=== PATIENT | male | born 1950 | race Caucasian/White ===

== ENCOUNTER 2019-01-01 20:07 | Inpatient (IN) | payer MEDICARE ==
--- NOTE | 2019-01-01 20:22 | ED ---
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 Pt was transferred from [facility] for CHF, sepsis. Associated sx: worsening LLE erythema and pain; fever; vomiting. His pain is rated 4 out of 10. Patient currently has known R upper lobe PNA. He is visiting from out of town and scheduled to fly back to [place] in three ays. He was seen by a provider in [place] 2 days ago, given ABX. PMHx: palpitations, DM, multiple AR, chronic kidney disease. No PMHx: CHF. Work-up from [facility] found: Bloodwork: WBC: 15, platelets: 116; elevated lactate: 2.8; d-dimer 1070; glucose : 478; anion gap: 14; BUN: 47; creatinine 2.5; troponin: 0.98; BNP: 1150. Following tests were negative: Head CT, Abd CT, CXR. However, the Chest CT was negative for CHF, but there was a R upper lobe infiltrate. Pt given IV fluids, ABX, 10 units insulin at [facility]. - History of Current Complaint Chief Complaint: EDShortnessOfBreath Time Seen by Provider: 01/01/19 20:08 Hx Obtained From: Patient, Medical Records Onset/Duration: Still Present Timing: Constant Associated Signs & Symptoms: Fever, Calf Pain/Swelling - and erythema Related History: Obesity - Allergy/Home Medications Allergies/Adverse Reactions: Allergies Allergy/AdvReac Type Severity Reaction Status Date / Time No Known Allergies Allergy Verified 01/01/19 20:23 Home Medications: Home Medications Carvedilol [Coreg] 1 tab PO BID 01/01/19 [History Confirmed 01/01/19] Dabigatran CAP(NF) [Pradaxa CAP(NF)] 1 cap PO DAILY 01/01/19 [History Confirmed 01/01/19] Hydralazine HCl 1 tab PO BID 01/01/19 [History Confirmed 01/01/19] Insulin REGULAR(*) 1 unit SUBCUT TID 01/01/19 [History Confirmed 01/01/19] Levothyroxine Sodium 1 tab PO DAILY 01/01/19 [History Confirmed 01/01/19] Losartan Potassium 1 tab PO DAILY 01/01/19 [History Confirmed 01/01/19] Novolin N 1 unit SUBCUT BID 01/01/19 [History Confirmed 01/01/19] Simvastatin 1 tab PO DAILY 01/01/19 [History Confirmed 01/01/19] Ubidecarenone [Coenzyme Q-10] 1 tab PO DAILY 01/01/19 [History Confirmed ] cloNIDine HCl [Catapres 0.1 MG TAB] 1 tab PO TID 01/01/19 [History Confirmed ] PMH/Surg Hx/FS Hx/Imm Hx Previously Healthy: No Endocrine/Hematology History: Reports: Hx Diabetes Cardiovascular History: Reports: Hx Atrial Fibrillation, Hx Myocardial Infarction Denies: Hx Congestive Heart Failure History: Reports: Hx Renal Disease - Family History Known Family History: Positive: Non-Contributory - Social History Occupation: Unemployed - OTHER Lives: With Family Alcohol Use: Occasionally Hx Substance Use: No Hx Tobacco Use: Yes Smoking Status (MU): Former Smoker Review of Systems Positive: Fever Positive: Shortness Of Breath Positive: Vomiting Positive: Other - pos: LLE erythema and pain All Other Systems Reviewed And Are Negative: Yes Physical Exam - Summary Physical Exam Summary: Appearance: well appearing, no pain distress Skin: warm, dry, reflects adequate perfusion Head/face: normal Eyes: EOMI, CONSTANCE ENT: mucous membranes moist Neck: supple, non-tender, no JVD Respiratory: Fine crackle in R upper lobe, breath sounds present Cardiovascular: Irregularly irregular, tachy, pulses symmetrical Abdomen: non-tender, soft Bowel Sounds: present Musculoskeletal: normal, strength/ROM intact. Beefy red erythema, chronic appearing, on LLE. Pitting edema to L knee on LLE. There is 2+ pitting edema on RLE. Evidence of chronic healed wound on RLE. 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 Callous of plantar foot of Left. Neuro: normal, sensory motor intact, A&Ox3 Triage Information Reviewed: Yes Vital Signs Reviewed: Yes Diagnostics - Laboratory Result Diagrams: 01/01/19 21:07 01/01/19 21:07 Lab Statement: Any lab studies that have been ordered have been reviewed, and results considered in the medical decision making process. - Radiology CXR Radiology Interpretation Completed By: ED Physician Summary of Radiographic Findings: No definite infiltrate. - Ultrasound No standard instances Ultrasound Interpretation Completed By: Radiologist Summary of Ultrasound Findings: LLLE Venous Doppler US IMPRESSION: No DVT in the left lower activity. Possible popliteal cyst. ED provider has reviewed this report. Course/Dx - Course Course Of Treatment: Nurse's notes reviewed. Patient transferred from outside hospital where he presented for concern for respiratory infection. He had been placed on Zithromax previously. His blood sugars are elevated he also has A. fib and his heart rate was elevated on arrival. He had a litany of tests at the other facility including a CT of the chest which showed a right upper lobe infiltrate. He had not been given any antibiotics. He had pain and swelling and redness in the left lower extremity and a DVT ultrasound was negative for DVT. There is some concern on it for cellulitis. He does have a popliteal cyst as well. Given the above infections he was treated for his severe sepsis with elevated lactate. He was given IV fluids, Rocephin, Zithromax and vancomycin. He was not acidotic and was not placed on insulin drip. He did receive rate controlled with diltiazem which controlled his rate down into the 80s and 90s. He will be admitted to the hospitalist service. - Diagnoses Differential Diagnosis/HQI/PQRI: Positive: CHF - Cellulitis, DVT, PE, Pneumonia , Other Provider Diagnoses: Right upper lobe pneumonia, Severe sepsis, Cellulitis of left lower extremity, Rapid atrial fibrillation - Physician Notifications Discussed Care of Patient With: Rosmery Villalobos - hospitalist Time Discussed With Above Provider: 21:20 Instructed by Provider To: Admit As Inpatient - Critical Care Time Critical Care Time: 30-74 min - 30 mins CCT. CCT is EXCLUSIVE of separately billable procedures. Discharge - Sign-Out/Discharge Documenting (check all that apply): Patient Departure - which Patient Received Moderate/Deep Sedation with Procedure: No - Discharge Plan Condition: Fair Disposition: ADMITTED TO [facility] - Billing Disposition and Condition Condition: FAIR Disposition: Admitted to [facility] - Attestation Statements Document Initiated by Scribe: Yes Documenting Scribe: Peyton Palomino Provider For Whom Scribe is Documenting (Include Credential): Dr. Norman Tao MD Scribe Attestation: Peyton Nava, scribed for Dr. Norman Tao MD on 01/02/19 at 0154. Scribe Documentation Reviewed: Yes Provider Attestation: The documentation as recorded by the fani, Peyton Palomino accurately reflects the service I personally performed and the decisions made by me, Dr. Norman Tao MD Status of Fani Document: Viewed
[2019-01-01] MEDS ORDERED: NS 0.9% 1000 ML** 1,000 ML IV ONE (20:23)
[2019-01-01] MEDS ORDERED: Azithromycin 500 mg/250 ml NS 500 MG/250 ML BAG IVPB ONE (20:23)
[2019-01-01] MEDS ORDERED: cefTRIAXone(*) 1 GM in NS 0.9% 50 ML* 50 ML IVPB ONE (20:23)
[2019-01-01] MEDS ORDERED: Insulin REGULAR(*) 1 UNITS UNIT IV PUSH ONE (20:25)
[2019-01-01] MEDS ORDERED: Diltiazem IV VIAL* 125 MG in NS 0.9% 100 ML* 100 ML IVPB ONE (20:26)
[2019-01-01] MEDS ORDERED: Diltiazem IV push/loading dose 5 MG/ML 5 ML vial (25 mg) IV SLOW PU ONE (20:37)
[2019-01-01 21:21] LABS: ABS Basophils 0.1 10^3/ul (0-0.2); ABS Lymphocytes 0.7 10^3/ul (1.0-4.8); ABS Monocytes 0.5 10^3/ul (0-0.8); ABS Neutrophils 12.2 10^3/ul (1.5-7.7); Hematocrit 41 % (42-52); Hemoglobin 13.5 g/dL (14.0-18.0); Mean Corpuscular HGB Conc 33 g/dL (31-36); Mean Corpuscular Hemoglobin 30 pg (27-31); Mean Corpuscular Volume 91 fL (80-94); Mean Platelet Volume 11.2 fL (7.4-10.4); Platelet Count 132 10^3/uL (150-450); Red Blood Count 4.46 10^6 /uL (4.18-5.48); Red Cell Distribution Width 14 % (10.5-15); White Blood Count 13.5 10^3/uL (3.5-10.8)
[2019-01-01 21:34] LABS: Anion Gap 12 mmol/L (2-11); BUN/Creatinine Ratio 19.7 (8-20); Blood Urea Nitrogen 46 mg/dL (6-24); CO2 Carbon Dioxide 23 mmol/L (22-32); Calcium 8.4 mg/dL (8.6-10.3); Chloride 98 mmol/L (101-111); EGFR African American 33.8 (>60); EGFR Non-African American 27.9 (>60); Glucose 413 mg/dL (70-100); Potassium 3.7 mmol/L (3.5-5.0); Sodium 133 mmol/L (135-145)
[2019-01-01] MEDS ORDERED: Vancomycin(*) 1,750 MG in NS 0.9% 500 ML* 500 ML IVPB ONE (21:40)
[2019-01-01] MEDS ORDERED: Vancomycin(*) 1,000 MG VIAL IVPB SCH (22:00)
[2019-01-01] MEDS ORDERED: Ondansetron INJ* 2 MG/ML VIAL IV PRN (22:10)
[2019-01-01 22:27] LABS: Magnesium 1.8 mg/dL (1.9-2.7)
[2019-01-01] MEDS ORDERED: Dextrose 50% Syringe 50 ML* 25 GM/50 ML SYRINGE IV PUSH PRN ×2 (22:27)
[2019-01-01] MEDS ORDERED: Metoprolol Tartrate IV* 1 MG/ML 5 ML VIAL IV PRN (22:28)
[2019-01-01] MEDS ORDERED: Heparin DRIP 25,000 UNITS(*) 25,000 UNITS/500 ML BAG IV SCH (22:30)
[2019-01-01 22:34] LABS: Troponin I 1.49 ng/mL (<0.04)
[2019-01-01 22:39] LABS: TSH (Thyroid Stimulating Horm) 0.57 mcIU/mL (0.34-5.60)
[2019-01-01] MEDS ORDERED: Heparin VIAL(*) 5000 UNITS/ML VIAL (FIVE THOUSAND) IV PRN (22:41)
[2019-01-01] MEDS ORDERED: Potassium Chlor TAB* 20 MEQ TAB.ER PO ONE (22:52)
[2019-01-01] MEDS ORDERED: Magnesium Sulfate 1 GM IV* 1 GM/100 ML BAG IV ONE (22:55)
[2019-01-01] MEDS ORDERED: Insulin LISPRO* 1 UNITS UNIT SUBCUT SCH (23:00)
[2019-01-02] MEDS ORDERED: Dextrose 50% Syringe 50 ML* 25 GM/50 ML SYRINGE IV PUSH PRN ×2 (00:30→04:09)
[2019-01-02] MEDS: Insulin GLARGINE(*) 1 UNITS UNIT SUBCUT SCH ×2 (00:45→21:43)
[2019-01-02] MEDS: Carvedilol TAB* 3.125 MG PO SCH ×3 (00:45→21:42)
[2019-01-02] MEDS: Insulin LISPRO* 1 UNITS UNIT SUBCUT SCH ×8 (00:46→16:25)
[2019-01-02 00:51] LABS: Glucose Confirmatory 415 mg/dL (70-100)
[2019-01-02 00:52] LABS: Troponin I 1.26 ng/mL (<0.04)
[2019-01-02] MEDS: Acetaminophen TAB* 325 MG PO PRN ×3 (01:27→21:43)
--- NOTE | 2019-01-02 01:37 | HP ---
CC: Dr. Zamudio, [place], [place] * HISTORY AND PHYSICAL: DATE OF ADMISSION: 01/01/19 TIME OF EVALUATION: 2100. PRIMARY CARE PHYSICIAN: Dr. Zamudio in [place], [place]. CHIEF COMPLAINT: Shortness of breath. HISTORY OF PRESENT ILLNESS: This is a 68-year-old male with a past medical history of atrial fibrillation, CKD, and diabetes, who presented to the emergency room from [facility] Room after having complaints of cough and shortness of breath. The patient states he flew up here from [place] with his on 12/28/18 for his cousin's graduation in [place]. Since then he has been driving around through [facility]. He has been complaining of worsening productive cough, shortness of breath. He has also noticed his left lower extremity 2 days ago more swollen with redness and painful. He went urgent care in [place] yesterday, 12/31/18, and they gave him Z-Giovanni and stated if his symptoms got worse to come to the emergency room for further evaluation. The patient states he has a lot of congestion. He feels lightheaded and dizzy. No falls, no loss of consciousness, but the dizziness has made it difficult for him to ambulate. He has also been short of breath with productive cough and orthopneic, nauseated as well when he lies flat. No chest pain or pressure. No vomiting or diarrhea. He states he feels bloated. He has had a decrease in appetite over the past few days. No fevers or chills. The patient denies any cough, choking, or aspirating on foods. The patient states he normally has well-controlled diabetes as well. In the [facility], the patient had labs, several imaging studies. He was given Lasix 80 mg and regular insulin 10 units, and he was sent here to [facility] ER for concern for congestive heart failure. Otherwise, remainder of review of systems is negative. In our emergency room, the patient was given a liter of fluid, diltiazem 10 mg, ceftriaxone 1 g, and azithromycin 500 mg, and vancomycin 1750 mg and referred to the hospitalist service for further evaluation. PAST MEDICAL HISTORY: 1. Diabetes. 2. CKD. 3. History of atrial fibrillation, on anticoagulation. 4. History of IA and CAD. The patient denies ever having stent or bypass surgery. 5. Hypertension. 6. Hyperlipidemia. 7. Hypothyroidism. MEDICATIONS: Per the patient, he is on Novolin N 20 units b.i.d. and NovoLog R sliding scale a.c. The remaining medications the patient is not clear on his dosages, but he states he takes Pradaxa, but according to med rec, 1. Pradaxa 75 mg p.o. daily 2. Hydralazine 50 mg p.o. b.i.d. 3. Coreg 3.125 mg b.i.d. 4. Losartan 100 mg p.o. daily. 5. Synthroid 25 mcg daily. 6. Coenzyme Q10 200 mg daily. 7. Simvastatin 20 mg daily. 8. Clonidine 0.1 mg p.o. t.i.d. ALLERGIES: No known drug allergies. FAMILY HISTORY: Reviewed and noncontributory. SOCIAL HISTORY: The patient lives in [place], [place] with his who is his healthcare proxy. As mentioned, he was visiting for his cousin's graduation from [place]. He quit smoking in 1987 with a 17-hitk-eyiv history. He drinks socially. No illicit drug use. Code status is full code. REVIEW OF SYSTEMS: A 14-point review of systems as mentioned in the HPI, otherwise negative. PHYSICAL EXAMINATION GENERAL: In no acute distress. He does fall asleep routinely during my encounter, but awakes easily to voice. VITAL SIGNS: T-max is 99.4, pulse rate is 98, respiratory rate is 24, oxygen saturation is 97% on 2 L, blood pressure 127/68. HEENT: Head normocephalic. Pupils are equal and reactive, anicteric. Oropharynx: Mucous membranes moist. NECK: Supple. No lymphadenopathy. RESPIRATORY: Diminished breath sounds. Bilateral rales at the bases. No increased work of breathing. CARDIAC: Irregularly irregular rate and rhythm. Soft systolic murmur heard throughout. ABDOMEN: Positive bowel sounds. Mild distention. Soft and nontender. EXTREMITIES: Chronic lower extremity lymphedema with hemosiderin changes. His left lower extremity has more significant erythema, edema, and warmth with serosanguineous oozing from his lower extremity. No wound but some minor skin tears. Pulses are distant. NEUROLOGIC: Alert and oriented x3. No gross focal neurologic deficits. LABORATORY DATA/IMAGING STUDIES: At [facility], his white count was 15, hemoglobin 12.9, hematocrit 39, platelets 116. Troponin was 0.978. BNP 1150. Sodium 134, potassium 3.9, chloride 98, bicarb 22. BUN 47, creatinine 2.5. He had 38% bands at [facility]. Repeat labs here at [facility] this evening, white count 13.5, hemoglobin 13.5, hematocrit 41, platelets 132. Blood gas, pH is 7.4. Sodium 133, potassium 3.7, chloride 98, bicarb 23. BUN 46, creatinine 2.33. Glucose is 413. Lactic acid is 2.3. Venous Doppler: There is no DVT in the left lower extremity, possible popliteal cyst. The patient had imaging at [facility]. CT of the abdomen: No small bowel obstruction, scattered small stool, no hydronephrosis or nephrolithiasis. Chest x- ray at [facility]: There was no acute pulmonary disease. Our chest x- ray on my read appears pulmonary edema. Head CT: No acute intracranial hemorrhage, significant mass effect, or large infarct. Chest CT without contrast at [facility]: Small patchy nodular right upper lobe infiltrate. ASSESSMENT: This is a 68-year-old male with past medical history of diabetes, chronic kidney disease, atrial fibrillation, and coronary artery disease, presents to the emergency room with worsening cough, shortness of breath, and left lower extremity redness. 1. Cough with shortness of breath. Assessment: This could be multifactorial. There is a question of an infiltrate on the chest CT right upper lobe. He does have a productive cough. White count with bandemia. He also appears to have some fluid overload. There is also a question of a possible pulmonary embolism with his recent flight from [place] and driving a lot throughout [facility] over the past several days. He does not have a DVT, and based on his creatinine clearance of 31, he should be able to take Pradaxa 150 mg p.o. b.i.d. but he is only on 75 mg p.o. daily. Plan: We will follow up blood cultures. We will check a sputum culture. We will continue on ceftriaxone and azithromycin which should treat both his cellulitis and his community-acquired pneumonia. I am going to switch him to a heparin drip for now and hold his Pradaxa and order a V/Q scan in the morning. If that is negative, can switch him back over to his oral anticoagulation at the appropriate dose based on his renal function. 2. Left lower extremity cellulitis. Assessment: No underlying wound, just some serosanguineous oozing from his lower extremity. No signs of deep venous thrombosis either. Plan: We will continue ceftriaxone and monitor for any worsening symptoms and follow up on this blood culture. 3. Question of congestive heart failure. Assessment: The patient's chest x- ray is concerning for the possibility of acute decompensated heart failure. His BNP was also elevated from [facility] and he has orthopnea. It is not sure if he has ever had an echocardiogram in the past. He did get 80 of Lasix at [facility] and a liter of fluid here. With the setting of his concern for sepsis and infection, we would not continue to diurese him but will bolus him as needed. We will also continue to trend his troponin, add on a troponin now and obtain an echocardiogram. 4. Diabetes. Assessment: The patient with hyperglycemia here. Mild anion gap but his pH is normal. This anion gap could be from worsening renal function as well. He did get IV insulin here and at [facility]. Plan: We will check a hemoglobin A1c, start him on Lantus 40 units and lispro sliding scale and monitor his glucose frequently. 5. Atrial fibrillation. Assessment: The patient arrived in rapid atrial fibrillation on arrival. His rate is now in the 90s. We would hold off on starting him on diltiazem drip in the setting of his congestive heart failure. We will continue him on Coreg and Lopressor p.r.n., hold his clonidine for now as well. 6. Chronic kidney disease. It is unclear what his baseline renal function is. I have no prior labs to compare this to. We will renally dose his medications , hold his losartan for now and repeat his labs in the morning. 7. Chronic medical problems. As mentioned, for hypertension, continue his Coreg, hydralazine, holding his losartan, holding his clonidine. Hyperlipidemia , continue with simvastatin, check a lipid panel in the morning. Hypothyroidism , continue his Synthroid, check his TSH in the setting of his atrial fibrillation. Holding his Pradaxa while he is on a heparin drip and ruling out a pulmonary embolism. 8. Diabetes. Placing him on Lantus and lispro sliding scale in place of his NovoLog and checking hemoglobin A1c. 9. FEN: We will place the patient on low-salt diabetic diet. 10. DVT prophylaxis: The patient scores high risk. Will be on a heparin drip. 11. Code status: The patient confirms he is a full code. PATIENT TIME: Greater than 60 minutes spent doing the history and physical, more than half the time spent in direct patient contact. [id number]/CPS #: [id number] MTDD
[2019-01-02] MEDS ORDERED: Insulin LISPRO* 1 UNITS UNIT SUBCUT ONE (04:09)
[2019-01-02 05:24] LABS: ABS Basophils 0.1 10^3/ul (0-0.2); ABS Lymphocytes 0.9 10^3/ul (1.0-4.8); ABS Monocytes 0.6 10^3/ul (0-0.8); ABS Neutrophils 14.6 10^3/ul (1.5-7.7); Eosinophil % 0.3 %; Hematocrit 39 % (42-52); Hemoglobin 12.7 g/dL (14.0-18.0); Lymphocyte % 5.8 %; Mean Corpuscular HGB Conc 33 g/dL (31-36); Mean Corpuscular Hemoglobin 30 pg (27-31); Mean Corpuscular Volume 91 fL (80-94); Mean Platelet Volume 11.1 fL (7.4-10.4); Platelet Count 119 10^3/uL (150-450); Red Blood Count 4.23 10^6 /uL (4.18-5.48); Red Cell Distribution Width 14 % (10.5-15); White Blood Count 16.2 10^3/uL (3.5-10.8)
[2019-01-02 05:41] LABS: BUN/Creatinine Ratio 20.9 (8-20); EGFR African American 33.6 (>60); EGFR Non-African American 27.8 (>60); HDL Cholesterol 23.8 mg/dL; Potassium 3.8 mmol/L (3.5-5.0)
[2019-01-02] MEDS: Levothyroxine TAB* 75 MCG TAB PO SCH (06:15)
[2019-01-02 07:18] LABS: Troponin I 1.2 ng/mL (<0.04)
[2019-01-02] MEDS ORDERED: cloNIDine TAB* 0.1 MG PO SCH (09:00)
[2019-01-02] MEDS: hydrALAZINE TAB* 25 MG PO SCH ×2 (09:43→21:43)
[2019-01-02] MEDS: Atorvastatin* 10 MG TAB PO SCH (09:43)
--- NOTE | 2019-01-02 10:10 | PN ---
Subjective Date of Service: 01/02/19 Interval History: Cough and chills/fevers SOB x at least 2 days but maybe as long as 6 days Pain in left leg when standing for several days Abdominal bloating x 3 days and increased LE swelling Notes his creatinine at baseline is around 2.3 He has an appointment with a manager portable on 01/29 but is unaware of underlying CHF history At baseline walks many miles Objective Active Medications: Acetaminophen (Tylenol Tab*) 650 mg PO Q4H PRN PRN Reason: FEVER/PAIN Last Admin: 01/02/19 01:27 Dose: 650 mg Atorvastatin Calcium (Lipitor*) 10 mg PO DAILY [facility] Last Admin: 01/02/19 09:43 Dose: 10 mg Carvedilol (Coreg Tab*) 3.125 mg PO BID [facility] Last Admin: 01/02/19 09:43 Dose: 3.125 mg Dabigatran (Pradaxa Cap(Nf)) 75 mg PO BID [facility] Dextrose (D50w Syringe 50 Ml*) 12.5 gm IV PUSH .FOR FS < 60 - SS PRN PRN Reason: FS < 60 Heparin Sodium (Porcine) (Heparin Vial(*)) 0 units IV .PER PROTOCOL PRN PRN Reason: BOLUS Last Admin: 01/02/19 00:48 Dose: 6,900 units Hydralazine HCl (Apresoline Tab*) 50 mg PO BID [facility] Last Admin: 01/02/19 09:43 Dose: 50 mg Azithromycin 250 mg/ Sodium (Chloride) 250 mls @ 250 mls/hr IVPB Q24H [facility] Ceftriaxone Sodium 1 gm/ (Sodium Chloride) 50 mls @ 200 mls/hr IVPB Q24H [facility] Insulin Glargine (Lantus(*)) 40 units SUBCUT Q24H [facility] Last Admin: 01/02/19 00:45 Dose: 40 units Insulin Human Lispro (Humalog*) 0 units SUBCUT [facility]; Protocol Last Admin: 01/02/19 08:54 Dose: Not Given Insulin Human Lispro (Humalog*) 0 units SUBCUT [facility]; Protocol Last Admin: 01/02/19 09:43 Dose: 6 units Levothyroxine Sodium (Synthroid Tab*) 75 mcg PO DAILY@0600 [facility] Last Admin: 01/02/19 06:15 Dose: 75 mcg Metoprolol Tartrate (Lopressor Iv*) 5 mg IV Q4HR PRN PRN Reason: pulse Ondansetron HCl (Zofran Inj*) 4 mg IV Q4H PRN PRN Reason: NAUSEA/VOMITING Vital Signs - 8 hr 01/02/19 01/02/19 01/02/19 04:02 07:44 08:00 Temperature 98.2 F 98.9 F Pulse Rate 87 82 Respiratory 16 20 18 Rate Blood Pressure 134/47 91/44 (mmHg) O2 Sat by Pulse 98 98 Oximetry 01/02/19 08:07 Temperature Pulse Rate Respiratory Rate Blood Pressure 107/52 (mmHg) O2 Sat by Pulse Oximetry Oxygen Devices in Use Now: Nasal Cannula Appearance: NAD, talks in full sentences Eyes: No Scleral Icterus, PERRLA Ears/Nose/Mouth/Throat: NL Teeth, Lips, Gums, Clear Oropharnyx Neck: NL Appearance and Movements; NL JVP, Trachea Midline Respiratory: Symmetrical Chest Expansion and Respiratory Effort, - - faint rales from bases up 3/4 to apex Cardiovascular: - - IRIR Abdominal: - - +bs, soft, NTTP, distended, shifting dullness Extremities: - - b/l 2+ pitting edema Skin: - - left LE erythema from 2 in above ankle to 4 in below knee, weepingm some skin breakdown around ankle Neurological: Alert and Oriented x 3 Result Diagrams: 01/02/19 04:13 01/02/19 04:13 Assess/Plan/Problems-Billing Assessment: 68 yo M h/o DM2, CKD (baseline cr 2.3 per patient), CAD, afib lives in [place] pw cough, chills, SOB and increased LE edema and LLE erythema - Patient Problems (1) Pneumonia Comment: cough, chills, SOB, leukocytosis Above may be in setting of CHF and cellulitis but CT report from [facility] with concern for RUL infiltrate c/w CTX and azithro for CAP as well as LE infection (2) Cellulitis Comment: LLE Skin breakdown suspected in setting of incraesed LE edema from CHF CTX for PNA and cellulitis (3) Acute exacerbation of CHF (congestive heart failure) Comment: Echo pending obtain records from PCP Dr. Zamudio in [facility] strcit I/O, daily weights, fluid restrict Holding lasix now 2/2 BP and sepsis Diuresis as capable. Limited by CKD and current infection V/Q low risk - suspect decompensation in setting of PNA and/or cellulitis (4) Atrial fibrillation Comment: Restart pradaxa for afib. No recommended renal dosing for current CrCl Metoprolol, coreg (5) Diabetes Comment: HbA1c 10% Basal bolus insulin (6) CKD (chronic kidney disease) Comment: noted obtain records for comparison (7) Elevated troponin Comment: No chest pain Suspect demand in setting of PNA, CHF, cellulitis (8) DVT prophylaxis Comment: pradaxa
[2019-01-02] MEDS ORDERED: Perflutren Lipid Microsphere* 3 ML VIAL ONE (10:35)
[2019-01-02] MEDS: DABIGATRAN 75 MG PO SCH ×2 (12:51→21:42)
[2019-01-02] MEDS ORDERED: Furosemide IV* 10 MG/ML 2 ML VIAL (20 MG) IV SLOW PU ONE (15:30)
--- NOTE | 2019-01-02 16:03 | ECHO ---
*[facility]* [place] [address] Fax #: [phone] Transthoracic Echocardiogram Patient: Cheyenne, Height: 72 in / Aditya 182.9 cm : 1950 Weight: 244.5 lb / Study Date: 01/02/2019 111.1 kg Age: 68 BP: 134 / 47 Gender: M BMI/BSA: 33.2 kg/m^2 HR: 90 bpm / 2.32 m^2 *Lining Cementer: * Debbie Carolina [facility] *Referring Physician: * Rosmery Villalobos *Reading Physician: * Cortez Johansen MD Indications: Congestive Heart Failure. History: Atrial fibrillation. Coronary artery disease. Functional status: Renal failure. Risk factors: Hypertension. Diabetes mellitus. Hyperlipidemia. Conclusions Summary: 1. Left ventricle: There is moderate concentric hypertrophy. Systolic function is mildly reduced. The estimated ejection fraction is 45-50%. Mild global hypokinesis 2. Right ventricle: Systolic function is normal. 3. Ventricular septum: There is septal flattening of the interventricular septum consistent with RV volume or pressure overload. 4. Mitral valve: Mild focal calcification of the posterior annulus. There is mild to moderate regurgitation. 5. Aortic valve: There is no evidence of stenosis. There is trace regurgitation. 6. Tricuspid valve: There is trace regurgitation. 7. Pericardium, extracardiac: There is no pericardial effusion. Study data: Transthoracic echocardiogram. Procedure: Transthoracic echocardiography was performed. Image quality was suboptimal. The study was technically limited due to body habitus. Intravenous Definity , 2.5 mls were administered by Marc Samano RN. Complete 2D, spectral Doppler, and color flow Doppler. Location: Echo laboratory. Patient status: Inpatient. Patient room number: 443-1. Rhythm: Atrial fibrillation. Findings Left ventricle: The cavity size is below normal. There is moderate concentric hypertrophy. Systolic function is mildly reduced. The estimated ejection fraction is 45-50%. Left ventricular diastolic function parameters are indeterminate. Right ventricle: The cavity size is moderately dilated. Wall thickness is mildly increased. Systolic function is normal. Ventricular septum: There is septal flattening of the interventricular septum consistent with RV volume or pressure overload. Left atrium: The atrium is moderately dilated. Right atrium: The atrium is mildly dilated. Mitral valve: The leaflets are mildly thickened. Mild focal calcification of the posterior annulus. There is no evidence of stenosis. There is mild to moderate regurgitation. Aortic valve: The valve is trileaflet. The leaflets are normal thickness. There is no evidence of stenosis. There is trace regurgitation. Tricuspid valve: The leaflets are normal thickness. There is no evidence of stenosis. There is trace regurgitation. Pulmonic valve: Not well visualized. The leaflets are normal thickness. There is no evidence of stenosis. There is trace regurgitation. Aorta: Aortic root: The aortic root is upper normal in size. Ascending aorta: The ascending aorta is appears normal. Aortic arch: The aortic arch is appears normal. Pericardium: A prominent pericardial fat pad is present. There is no pericardial effusion. Pulmonary arteries: Not well visualized. Systemic veins: Inferior vena cava: The vessel is dilated. The respirophasic diameter changes are in the normal range (>= 50%). Measurements Left ventricle Value Ref Right atrium continued Value Ref ROSY, LAX (L) 3.4 cm 4.2 - SI dim/bsa, ES, 2.3 cm/m^2 1.8 - 5.8 A4C 3.0 ESD, LAX 2.5 cm 2.5 - Estimated RAP 8 mm Hg -------- 4.0 FS, LAX 26 % Aortic valve Value Ref PW, ED, LAX (H) 1.4 cm 0.6 - Fitz diam, ED 2.4 cm -------- 1.0 Peak v, S 1.05 m/sec -------- FS 26 % 25 - 43 VTI, S 15.7 cm -------- PW, ED (H) 1.4 cm 0.6 - Mean grad, S 2.0 mm Hg -------- 1.0 Peak grad, S 4.0 mm Hg -------- PW/ID, ED 0.42 -------- LVOT/AV, VTI ratio 0.96 -------- E', lat fitz, TDI 11.0 cm/sec >=10.0 CISCO, VTI 3.31 cm^2 - ------- E/e', lat fitz, TDI 10 -------- CISCO, Vmax 2.73 cm^2 ---- ---- E', med fitz, TDI 7.2 cm/sec >=7.0 E/e', med fitz, TDI 15 -------- Mitral valve Value Ref E', avg, TDI 9.1 cm/sec -------- Peak E 1.05 m/sec ---- ---- E/e', avg, TDI 12 <=14 Peak A 0 m/sec - ------- Decel time 211 ms -------- LVOT Value Ref PHT 144 ms -------- Diam, S 2.10 cm -------- Mean grad, D 3.0 mm Hg -------- Area 3.5 cm^2 -------- Peak grad, D 9.0 mm Hg -------- Peak isaias, S 0.83 m/sec -------- Peak E/A ratio 525 -------- VTI, S 15.0 cm -------- MVA, PHT 1.6 cm^2 -------- Mean grad, S 1 mm Hg -------- SV 51 ml -------- Pulmonic valve Value Ref SV/bsa 22 ml/m^2 -------- Peak v, S 1.13 m/sec -------- Peak grad, S 5.0 mm Hg -------- Ventricular septum Value Ref IVS, ED (H) 1.4 cm 0.6 - Aortic root Value Ref 1.0 Root diam 3.7 cm <4.4 Right ventricle Value Ref Ascending aorta Value Ref AW thickness, ED (H) 0.8 cm 0.1 - AAo AP diam, S 3.5 cm -------- 0.5 ROSY, LAX 3.1 cm -------- Aortic arch Value Ref ROSY minor ax, A4C (H) 5.3 cm 1.9 - Arch diam 2.6 cm -------- mid 3.5 Decending aorta Value Ref Left atrium Value Ref Jeremy peak isaias 0.61 m/sec -------- ML dim, A4C 5.1 cm -------- SI dim, A4C 5.4 cm -------- Inferior vena cava Value Ref Vol/bsa, ES, 1-p 28 ml/m^2 12 - 37 Diam 2.4 cm -------- A4C Vol/bsa, ES, A/L (H) 42 ml/m^2 16 - 34 Right atrium Value Ref SI dim, ES (H) 5.4 cm 3.4 - 5.3 ML dim, ES, A4C 4.2 cm 2.6 - 4.4 SI dim, ES, A4C (H) 5.4 cm 3.4 - 5.3 Legend: (L) and (H) georgette values outside specified reference range. Prepared and electronically signed by Cortez Johansen MD 01/02/2019 16:03
--- NOTE | 2019-01-02 16:49 | CONSULT ---
Subjective Date of Service: 01/02/19 Interval History: Mr. Quinn is a 68 yo male with PMH significant for afib, CKD, CAD, HTN, HLD , hypothyroidism, and DM2 who presented to the emergency room with complaints of cough and shortness of breath. He was found to have left LE cellulitis, and an open wound to the back of his left calf. Patient seen and examined at bedside. Family History: Unchanged from Admission Social History: Unchanged from Admission Past Medical History: Unchanged from Admission Review of Systems - Measurements Intake and Output: Intake and Output Last 24 Hours 12/31/18 01/01/19 01/02/19 01/03/19 06:59 06:59 06:59 06:59 Intake Total 2720 200 Output Total 250 Balance 2720 -50 Weight 252 lb 1.6 oz Intake: IV Fluids 1070 Magnesium 1gm 20 IVPB 1170 Magnesium 1gm 100 Vancomycin 535 Oral 480 200 Output: Urine 250 - Review of Systems Constitutional Symptoms: Positive: Fever, Other - Chills Dermatology: Positive: Other - Open area to back of left leg Musculoskeletal: Positive: Other - Left LE pain Endocrinology: Positive: Diabetes Mellitus Objective Active Medications: Acetaminophen (Tylenol Tab*) 650 mg PO Q4H PRN Reason: FEVER/PAIN Atorvastatin Calcium (Lipitor*) 10 mg PO DAILY [facility] Carvedilol (Coreg Tab*) 3.125 mg PO BID [facility] Dabigatran (Pradaxa Cap(Nf)) 75 mg PO BID [facility] Dextrose (D50w Syringe 50 Ml*) 12.5 gm IV PUSH .FOR FS < 60 - SS PRN Reason: FS < 60 Hydralazine HCl (Apresoline Tab*) 50 mg PO BID [facility] Azithromycin 250 mg/ Sodium (Chloride) 250 mls @ 250 mls/hr IVPB Q24H [facility] Ceftriaxone Sodium 1 gm/ (Sodium Chloride) 50 mls @ 200 mls/hr IVPB Q24H [facility] Insulin Glargine (Lantus(*)) 40 units SUBCUT Q24H [facility] Insulin Human Lispro (Humalog*) 0 units SUBCUT AC [facility]; Protocol Insulin Human Lispro (Humalog*) 0 units SUBCUT AC [facility]; Protocol Levothyroxine Sodium (Synthroid Tab*) 75 mcg PO DAILY@0600 [facility] Metoprolol Tartrate (Lopressor Iv*) 5 mg IV Q4HR PRN Reason: pulse Ondansetron HCl (Zofran Inj*) 4 mg IV Q4H PRN Reason: NAUSEA/VOMITING Vital Signs - 8 hr 01/02/19 01/02/19 01/02/19 11:33 14:11 14:17 Temperature 99.1 F 99.9 F Pulse Rate 83 92 Respiratory 16 Rate Blood Pressure 122/54 104/52 (mmHg) O2 Sat by Pulse 100 97 Oximetry 01/02/19 15:20 Temperature 99.5 F Pulse Rate 102 Respiratory 14 Rate Blood Pressure 109/53 (mmHg) O2 Sat by Pulse 97 Oximetry Oxygen Devices in Use Now: Nasal Cannula Appearance: NAD, sitting up in bed Ears/Nose/Mouth/Throat: Mucous Membranes Moist Respiratory: Symmetrical Chest Expansion and Respiratory Effort Extremities: - - 1-2+ bilatera LE edema Skin: - - See skin note below Neurological: Alert and Oriented x 3 Nutrition: Taking PO's Result Diagrams: 01/06/19 05:42 01/06/19 05:40 Skin Deviation Note - Skin Deviation Findings Posterior left lower leg - There is a superficial open area measuring 1.8 cm x 1.8 cm x 0.1 cm. The wound base is pink granulation tissue. There is serous drainage. The surrounding skin is intact, but with erythema and warmth. Assessment/Plan: Mr. Quinn is a 68 yo male with PMH significant for afib, CKD, CAD, HTN, HLD , hypothyroidism, and DM2 who presented to the emergency room with complaints of cough and shortness of breath. He was found to have left LE cellulitis, and an open wound to the back of his left calf. 1. Posterior left LE superficial wound. Patient states that this is due to trauma to the leg, suspect this is a skin tear. Recommend applying a dry dressing and change daily or as needed for soiling. If there is a large amount of drainage from the wound could apply calcium alginate to the area. 2. Left LE cellulitis. Continue to treat cellulitis according to primary team. 3. Diabetes Mellitus, type 2. HgA1C 10. Maintain good glycemic control to allow for wound healing. 4. Diet. Consistent Carbohydrate. 5. Code Status. Full Code status. 6. Disposition. Inpatient, disposition per primary medicine team. TIME SPENT: Time for this wound consultation was 25 minutes and 15 minutes was spent with the patient discussing past medical history; assessing, measuring and photographing the wound; removing and reapplying the dressing. Wound Problem/Plan Is Patient a Wound Clinic Patient: No Attending: Wendy Kimble
[2019-01-02] MEDS ORDERED: cefTRIAXone(*) 1 GM in NS 0.9% 50 ML* 50 ML IVPB SCH (21:00)
[2019-01-02] MEDS: Azithromycin IV(*) 250 MG in NS 0.9% 250 ML* 250 ML IVPB SCH (22:54)
[2019-01-03] MEDS ORDERED: NS 0.9% 500 ML* 500 ML IV ONE (02:19)
[2019-01-03] MEDS: Levothyroxine TAB* 75 MCG TAB PO SCH (05:54)
[2019-01-03] MEDS ORDERED: Vancomycin Random Level* NOTE FOLLOW UP PRN (06:00)
[2019-01-03 06:28] LABS: Hematocrit 37 % (42-52); Hemoglobin 12.5 g/dL (14.0-18.0); Mean Corpuscular HGB Conc 34 g/dL (31-36); Mean Corpuscular Hemoglobin 30 pg (27-31); Mean Corpuscular Volume 90 fL (80-94); Platelet Count 129 10^3/uL (150-450); Red Blood Count 4.13 10^6 /uL (4.18-5.48); Red Cell Distribution Width 15 % (10.5-15); White Blood Count 20.4 10^3/uL (3.5-10.8)
[2019-01-03 06:52] LABS: BUN/Creatinine Ratio 20.8 (8-20); Calcium 7.8 mg/dL (8.6-10.3); EGFR African American 24.9 (>60); EGFR Non-African American 20.6 (>60); Magnesium 2.2 mg/dL (1.9-2.7); Potassium 3.9 mmol/L (3.5-5.0)
[2019-01-03] MEDS: DABIGATRAN 75 MG PO SCH ×2 (08:49→21:27)
[2019-01-03] MEDS: Atorvastatin* 10 MG TAB PO SCH (08:49)
[2019-01-03] MEDS: Carvedilol TAB* 3.125 MG PO SCH ×2 (08:49→21:27)
[2019-01-03] MEDS: Insulin LISPRO* 1 UNITS UNIT SUBCUT SCH ×6 (08:49→17:19)
[2019-01-03] MEDS: hydrALAZINE TAB* 25 MG PO SCH ×2 (08:49→21:27)
[2019-01-03] MEDS ORDERED: Vancomycin per Pharmacy* NOTE FOLLOW UP SCH (11:26)
[2019-01-03] MEDS: Insulin GLARGINE(*) 1 UNITS UNIT SUBCUT SCH ×2 (11:59→22:21)
[2019-01-03] MEDS ORDERED: Vancomycin(*) 1,500 MG in NS 0.9% 250 ML* 250 ML IVPB ONE (12:00)
[2019-01-03] MEDS ORDERED: Magnesium Hydroxide LIQ* 30 ML UDC PO ONE (16:00)
--- NOTE | 2019-01-03 18:33 | PN ---
Subjective Date of Service: 01/03/19 Interval History: Notes reviewed, hypotensive o/n - received fluid bolus Today feels more fatigued, looks more tired and feels "congested" in his chest however no need for oxygen and no increased work of breathing Seen with , they bith agree he would prefer to be DNR. paperwork filled out accordingly Left leg pain if stands on it Family History: Unchanged from Admission Social History: Unchanged from Admission Past Medical History: Unchanged from Admission Objective Active Medications: Acetaminophen (Tylenol Tab*) 650 mg PO Q4H PRN PRN Reason: FEVER/PAIN Last Admin: 01/02/19 21:43 Dose: 650 mg Atorvastatin Calcium (Lipitor*) 10 mg PO DAILY [facility] Last Admin: 01/03/19 08:49 Dose: 10 mg Carvedilol (Coreg Tab*) 3.125 mg PO BID [facility] Last Admin: 01/03/19 08:49 Dose: 3.125 mg Dabigatran (Pradaxa Cap(Nf)) 75 mg PO BID [facility] Last Admin: 01/03/19 08:49 Dose: 75 mg Dextrose (D50w Syringe 50 Ml*) 12.5 gm IV PUSH .FOR FS < 60 - SS PRN PRN Reason: FS < 60 Hydralazine HCl (Apresoline Tab*) 50 mg PO BID [facility] Last Admin: 01/03/19 08:49 Dose: 50 mg Azithromycin 250 mg/ Sodium (Chloride) 250 mls @ 250 mls/hr IVPB Q24H [facility] Last Admin: 01/02/19 22:54 Dose: 250 mls/hr Insulin Glargine (Lantus(*)) 40 units SUBCUT Q24H [facility] Last Admin: 01/02/19 21:43 Dose: 40 units Insulin Glargine (Lantus(*)) 7 units SUBCUT DAILY [facility] Last Admin: 01/03/19 11:59 Dose: 7 unit Insulin Human Lispro (Humalog*) 0 units SUBCUT [facility]; Protocol Last Admin: 01/03/19 17:15 Dose: Not Given Insulin Human Lispro (Humalog*) 0 units SUBCUT AC [facility]; Protocol Last Admin: 01/03/19 17:19 Dose: 9 units Levothyroxine Sodium (Synthroid Tab*) 75 mcg PO DAILY@0600 [facility] Last Admin: 01/03/19 05:54 Dose: 75 mcg Metoprolol Tartrate (Lopressor Iv*) 5 mg IV Q4HR PRN PRN Reason: pulse Ondansetron HCl (Zofran Inj*) 4 mg IV Q4H PRN PRN Reason: NAUSEA/VOMITING Last Admin: 01/02/19 12:51 Dose: 4 mg Pharmacy Consult (Vancomycin Per Pharmacy*) 0 note FOLLOW UP .VANC PER PHARMACY [facility]; Protocol Stop: 02/17/20 11:59 Pharmacy Consult (Vancomycin Random Level*) 1 note FOLLOW UP 0600 ONE Stop: 01/04/19 06:01 Polyethylene Glycol/Electrolytes (Miralax*) 17 gm PO DAILY PRN PRN Reason: CONSTIPATION Vital Signs - 8 hr 01/03/19 01/03/19 11:20 15:50 Temperature 97.3 F 98.7 F Pulse Rate 93 99 Respiratory 16 20 Rate Blood Pressure 138/63 134/57 (mmHg) O2 Sat by Pulse 98 97 Oximetry Oxygen Devices in Use Now: None Appearance: sitting in chair NAD Eyes: No Scleral Icterus, PERRLA Ears/Nose/Mouth/Throat: NL Teeth, Lips, Gums, Clear Oropharnyx Neck: NL Appearance and Movements; NL JVP, Trachea Midline Respiratory: Symmetrical Chest Expansion and Respiratory Effort, Clear to Auscultation Cardiovascular: NL Sounds; No Murmurs; No JVD, RRR Lymphatic: No Cervical Adenopathy Extremities: - - 2+ Le edema Skin: - - LLE erythematous from 2in above ankle all cecilia way to knee Neurological: Alert and Oriented x 3 Result Diagrams: 01/03/19 05:49 01/03/19 05:49 Microbiology and Other Data: Microbiology 01/01/19 21:07 Aerobic Blood Culture - Preliminary Blood Venous No Growth Day 1 Anaerobic Blood Culture - Preliminary No Growth Day 1 01/01/19 21:00 Aerobic Blood Culture - Preliminary Blood Venous No Growth Day 1 Anaerobic Blood Culture - Preliminary No Growth Day 1 Assess/Plan/Problems-Billing Assessment: 68 yo M h/o DM2, CKD (baseline cr 2.3 per patient), CAD, afib lives in [place] pw cough, chills, SOB and increased bilateral LE edema and LLE erythema - Patient Problems (1) Pneumonia Comment: cough, chills, SOB, leukocytosis Above may be in setting of CHF and cellulitis but CT report from [place] with concern for RUL infiltrate c/w azithro for CAP CTX changed to vanco for cellulitis (2) Cellulitis Comment: LLE Skin breakdown suspected in setting of increased LE edema from CHF hypotension overnight, [place] clinical status, spreading erythema prompted broader coverage and change to vancomycin (3) Acute exacerbation of CHF (congestive heart failure) Comment: Acute systolic based on echo here obtain records from PCP Dr. Zamudio in [facility] strcit I/O, daily weights, fluid restrict Holding lasix now 2/2 sepsis Diuresis as capable; likely when cellulitis improves. Limited by CKD and current infection V/Q low risk - suspect decompensation in setting of PNA and/or cellulitis (4) Atrial fibrillation Comment: Restart pradaxa for afib. No recommended renal dosing for current CrCl Metoprolol, coreg (5) Diabetes Comment: HbA1c 10% Basal bolus insulin add additional 7 units lantus in AM starting 01/03 (total now 47 units/24 hrs) (6) CKD (chronic kidney disease) Comment: noted complicated by NABIL in setting of sepsis from above (7) Elevated troponin Comment: No chest pain Suspect demand in setting of PNA, CHF, cellulitis (8) DVT prophylaxis Comment: pradaxa
[2019-01-03] MEDS: Azithromycin IV(*) 250 MG in NS 0.9% 250 ML* 250 ML IVPB SCH (21:27)
[2019-01-03] MEDS: Acetaminophen TAB* 325 MG PO PRN (22:00)
[2019-01-03] MEDS: Polyethylene Glycol 3350* 17 GM PACKET PO PRN (22:01)
[2019-01-04] MEDS: Acetaminophen TAB* 325 MG PO PRN ×3 (02:21→21:07)
[2019-01-04] MEDS ORDERED: oxyCODONE TAB* 5 MG TAB PO ONE (02:27)
[2019-01-04] MEDS: Levothyroxine TAB* 75 MCG TAB PO SCH (05:30)
[2019-01-04] MEDS ORDERED: Vancomycin Random Level* NOTE FOLLOW UP ONE (06:00)
[2019-01-04 06:07] LABS: Hematocrit 37 % (42-52); Hemoglobin 12.5 g/dL (14.0-18.0); Mean Corpuscular HGB Conc 34 g/dL (31-36); Mean Corpuscular Hemoglobin 30 pg (27-31); Mean Corpuscular Volume 91 fL (80-94); Mean Platelet Volume 10.9 fL (7.4-10.4); Platelet Count 147 10^3/uL (150-450); Red Blood Count 4.12 10^6 /uL (4.18-5.48); Red Cell Distribution Width 14 % (10.5-15); White Blood Count 22.2 10^3/uL (3.5-10.8)
[2019-01-04 06:24] LABS: BUN/Creatinine Ratio 23.6 (8-20); Calcium 7.9 mg/dL (8.6-10.3); EGFR African American 23.6 (>60); EGFR Non-African American 19.5 (>60); Potassium 4.1 mmol/L (3.5-5.0)
[2019-01-04 06:32] LABS: ABS Lymphocytes 1.2 10^3/ul (1.0-4.8); ABS Monocytes 0.7 10^3/ul (0-0.8); ABS Neutrophils 20.3 10^3/ul (1.5-7.7); Eosinophil % 0.2 %; Lymphocyte % 5.3 %; Nucleated Red Blood Cells % 0.1; Polychromasia 1+; Vancomycin Random 13.9 mcg/mL
[2019-01-04] MEDS ORDERED: Vancomycin(*) 1,250 MG IV x ONCE IVPB ONE ×2 (09:00)
[2019-01-04] MEDS: Insulin GLARGINE(*) 1 UNITS UNIT SUBCUT SCH ×2 (09:51→23:40)
[2019-01-04] MEDS: Insulin LISPRO* 1 UNITS UNIT SUBCUT SCH ×6 (09:54→17:54)
[2019-01-04] MEDS: hydrALAZINE TAB* 25 MG PO SCH ×2 (09:56→21:17)
[2019-01-04] MEDS: DABIGATRAN 75 MG PO SCH ×2 (09:56→21:07)
[2019-01-04] MEDS: Atorvastatin* 10 MG TAB PO SCH (09:56)
[2019-01-04] MEDS: Carvedilol TAB* 3.125 MG PO SCH ×2 (09:58→21:09)
[2019-01-04] MEDS: Polyethylene Glycol 3350* 17 GM PACKET PO PRN (09:59)
--- NOTE | 2019-01-04 11:05 | CONS ---
CONSULTATION REPORT: DATE OF CONSULT: 01/04/19 REQUESTING PHYSICIAN: Dr. Menjivar. CONSULTING SERVICE: Infectious Disease. REASON FOR CONSULT: Cellulitis. IMPRESSION: 1. Left leg cellulitis with increasing leukocytosis that may be multifactorial including overall stress response to his illness. I do not think it reflects worsening infection. There is always a consideration of undrained abscess with leukocytosis; however, I do not see evidence of that in his legs. An intraabdominal collection is always a consideration, but he has no particular abdominal symptoms other than constipation and bloating. The CT report from [place] suggests a right upper lobe infiltrate. His respiratory symptoms are improving overall. 2. Morbid obesity. 3. Insulin-dependent diabetes. 4. Chronic kidney disease with prerenal azotemia. 5. Coronary artery disease and myocardial infarction. RECOMMENDATION: Clindamycin 600 mg IV every 8 hours, encouraged leg elevation as much as possible, and start adding an Leonardo wrap as he can tolerate. HISTORY OF PRESENT ILLNESS: This is a 68-year-old male with diabetes, admitted with left leg pain and swelling. He is travelling in this area from [place], was in [place] a few days ago with a cough, prescribed azithromycin. Because of progression of cough and some left leg swelling, he went to the ER at [place]. On the , CT scan of the chest showed a right upper lobe infiltrate. He was started on antibiotics and transferred to the ER here. He had a chest x-ray that showed no infiltrate. He had a V/Q scan that was negative. He had, by report, a left leg ultrasound for DVT at [facility] that was negative. When he arrived here, his white count was 13,000, by the next day it was 16,000 and it is 22,000 today. It is predominantly neutrophils. He has had no fever here. The left leg pain and swelling is about the same. He has had a couple superficial skin tears, no bulla developing. He is draining serous fluid. Pain is diffuse, does not involve the knee or ankle. He has been keeping the leg elevated from time-to- time. His blood cultures are negative. He had a sputum culture collected this morning , it shows 4+ gram-negative rods. Culture is pending. Hemoglobin A1c on the was 10. He has not had cellulitis in the past. PAST MEDICAL HISTORY: 1. Insulin-dependent diabetes. 2. Morbid obesity. 3. 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 4. Chronic kidney disease. 5. Atrial fibrillation, on anticoagulation. 6. Coronary artery disease and HI. 7. Hypertension. 8. Hyperlipidemia. 9. Hypothyroidism. MEDICATIONS: 1. Tylenol. 2. Lipitor. 3. Azithromycin 250 mg IV daily. 4. Coreg. 5. Dabigatran. 6. Insulin-glargine. 7. Hydralazine. 8. Levothyroxine. 9. Magnesium hydroxide. 10. Metoprolol. 11. Polyethylene glycol as needed. 12. Vancomycin 1250 mg once this morning. ALLERGIES: No known drug allergies. FAMILY HISTORY: No recurrent infection or TB. SOCIAL HISTORY: He lives in [place], works at [employer] in [place], travelling to this area for a graduation initially. He is a past smoker, occasional alcohol. REVIEW OF SYSTEMS: All negative except as noted above in the history of present illness, a 14-point review. PHYSICAL EXAM: Vital Signs: Temperature 36.4, heart rate 80, respiratory rate 20, blood pressure 110/55, oxygen saturation 100% on room air. General: He is awake, not in distress. Neurologic: He is oriented x3, follows all commands. He has decreased sensation to light touch in both feet. HEENT: There is no conjunctival hemorrhage. Oropharynx without lesions. Neck: Supple without mass. Heart: Regular rate and rhythm without murmurs, rubs, or gallops. Lungs are clear to auscultation bilaterally. Abdomen: Soft, mildly distended, decreased bowel sounds, and nontender and without rebound. Musculoskeletal: There is no spinous tenderness to palpation. The left great toe is absent. Amputation site is well healed. Skin: There is no rash or splinter hemorrhage ; however, below the left knee there is diffuse dark erythema, some areas blanching, some nonblanching. No crepitus or fluctuance. There is some posterior lower leg skin tear with serous drainage. There is diffuse warmth. DIAGNOSTIC STUDIES/LAB DATA: Creatinine 3.1, BUN 75, white blood cell count is 22, hemoglobin 12, platelets 147. Please see impressions and recommendations above, which I have discussed with Dr. Menjivar. Thanks for asking me to see Mr. Quinn in consultation. [id number]/[facility] #: [id number] [facility]
[2019-01-04] MEDS ORDERED: Magnesium Hydroxide LIQ* 30 ML UDC PO ONE (11:07)
[2019-01-04] MEDS: Azithromycin IV(*) 250 MG in NS 0.9% 250 ML* 250 ML IVPB SCH (20:58)
[2019-01-04] MEDS ORDERED: Sodium Phosphate ADULT ENEMA* 118 ml bottle PR PRN (21:10)
[2019-01-04] MEDS: oxyCODONE TAB* 5 MG TAB PO PRN (22:16)
[2019-01-05] MEDS: Acetaminophen TAB* 325 MG PO PRN ×2 (05:29→22:13)
[2019-01-05] MEDS: oxyCODONE TAB* 5 MG TAB PO PRN ×2 (05:30→18:36)
[2019-01-05] MEDS: Levothyroxine TAB* 75 MCG TAB PO SCH (05:32)
[2019-01-05] MEDS ORDERED: Vancomycin Random Level* NOTE FOLLOW UP ONE (06:00)
[2019-01-05] MEDS: hydrALAZINE TAB* 25 MG PO SCH ×2 (08:53→21:38)
[2019-01-05] MEDS: DABIGATRAN 75 MG PO SCH ×2 (08:54→21:38)
[2019-01-05] MEDS: Carvedilol TAB* 3.125 MG PO SCH ×2 (08:55→21:38)
[2019-01-05] MEDS: Atorvastatin* 10 MG TAB PO SCH (08:55)
[2019-01-05] MEDS: Insulin LISPRO* 1 UNITS UNIT SUBCUT SCH ×6 (08:56→18:32)
[2019-01-05] MEDS: Insulin GLARGINE(*) 1 UNITS UNIT SUBCUT SCH ×2 (08:56→22:14)
[2019-01-05 09:55] LABS: Calcium 7.6 mg/dL (8.6-10.3)
[2019-01-05] MEDS ORDERED: Vancomycin(*) 750 MG in NS 0.9% 250 ML* 250 ML IVPB ONE (10:00)
[2019-01-05 10:01] LABS: BUN/Creatinine Ratio 26.5 (8-20); EGFR African American 24.7 (>60); EGFR Non-African American 20.4 (>60)
[2019-01-05 10:58] LABS: Hematocrit 37 % (42-52); Hemoglobin 12.2 g/dL (14.0-18.0); Mean Corpuscular HGB Conc 33 g/dL (31-36); Mean Corpuscular Hemoglobin 30 pg (27-31); Mean Corpuscular Volume 91 fL (80-94); Mean Platelet Volume 10.9 fL (7.4-10.4); Platelet Count 177 10^3/uL (150-450); Red Blood Count 4.12 10^6 /uL (4.18-5.48); Red Cell Distribution Width 15 % (10.5-15); White Blood Count 19.5 10^3/uL (3.5-10.8)
--- NOTE | 2019-01-05 11:35 | PN ---
Progress Note - Progress Note Date of Service: 01/05/19 SOAP: Subjective: CC: Left leg cellulitis HPI: Mr. Quinn is a 68 yo male with PMH significant for DM2, morbid obesity, CKD , CAD, HTN, HLD, Afib, and hypothyroidism. Denies fever, chills, shortness of breath, reports continued bilateral LE edema and weeping from the LEs. [facility] staff have placed Vaseline gauze to the leg as the dressing was sticking to the skin. Objective: Vital Signs - 8 hr 01/05/19 01/05/19 01/05/19 05:30 08:00 08:57 Respiratory 18 16 16 Rate Physical Exam: General: NAD, sitting up in a chair Neurological: Alert and Oriented x 4 HEENT: Moist MM, no thrush Cardiovascular: Heart rate irregular Respiratory: Lung sounds clear, diminished in the bases Abdominal: Bowel sounds present; ABD soft, large and non tender. Skin: Left LE with erythema and warmth. There is macerated skin to the lower leg with skin peeling. The open areas have red granulation tissue. There is a large amount of serous drainage. Laboratory Results - last 24 hr 01/05/19 01/05/19 01/05/19 07:17 07:48 07:48 Sodium 135 Potassium 4.0 Chloride 101 Carbon Dioxide 24 Anion Gap 10 BUN 81 H Creatinine 3.06 H Est GFR ( Amer) 24.7 Est GFR (Non-Af Amer) 20.4 BUN/Creatinine Ratio 26.5 H Glucose 128 H POC Glucose (mg/dL) 132 H Calcium 7.6 L Random Vancomycin 19.6 01/05/19 10:09 WBC 19.5 H RBC 4.12 L Hgb 12.2 L Hct 37 L MCV 91 MCH 30 MCHC 33 RDW 15 Plt Count 177 MPV 10.9 H Microbiology 01/04/19 07:00 Gram Stain - Final Sputum 01/01/19 21:07 Aerobic Blood Culture - Preliminary Blood Venous No Growth Day 3 Anaerobic Blood Culture - Preliminary No Growth Day 3 01/01/19 21:00 Aerobic Blood Culture - Preliminary Blood Venous No Growth Day 3 Anaerobic Blood Culture - Preliminary No Growth Day 3 Assessment: 1. Left LE cellulitis. Continues to have erythema and now with macerated skin and skin breakdown. Blood cultures with no growth, day 3. Afebrile. Leukocytosis is slowly improving. Denies diarrhea. Continues to have pain 3/10 in the left LE. 2. DM2. 3. Morbid obesity. 4. CKD. Plan: Stop Vancomycin and Azithromycin. Start Clindamycin 300 mg IV Q8H. Recommend keeping the left LE open to air at this time. Keep legs elevated. Once the weeping has decreased can consider going back to MIKEL wraps.
[2019-01-05 11:58] LABS: ABS Eosinophils 0.3 10^3/ul (0-0.6); ABS Lymphocytes 1.2 10^3/ul (1.0-4.8); ABS Monocytes 0.7 10^3/ul (0-0.8); ABS Neutrophils 17.3 10^3/ul (1.5-7.7); Eosinophil % 1.6 %; Lymphocyte % 6.1 %
[2019-01-05] MEDS: Clindamycin 300 MG IVPREMIX(* 300 MG/50 ML SDV IV SCH ×2 (13:23→21:24)
[2019-01-05] MEDS ORDERED: Azithromycin TAB* 250 MG PO ONE (16:23)
--- NOTE | 2019-01-05 16:25 | PN ---
Subjective Date of Service: 01/05/19 Interval History: Feeling better today More energy better appetite No diarrhea, no CP, no SOB Pain in leg when standing Family History: Unchanged from Admission Social History: Unchanged from Admission Past Medical History: Unchanged from Admission Objective Active Medications: Acetaminophen (Tylenol Tab*) 650 mg PO Q4H PRN PRN Reason: FEVER/PAIN Last Admin: 01/05/19 05:29 Dose: 650 mg Atorvastatin Calcium (Lipitor*) 10 mg PO DAILY [facility] Last Admin: 01/05/19 08:55 Dose: 10 mg Carvedilol (Coreg Tab*) 3.125 mg PO BID [facility] Last Admin: 01/05/19 08:55 Dose: 3.125 mg Dabigatran (Pradaxa Cap(Nf)) 75 mg PO BID [facility] Last Admin: 01/05/19 08:54 Dose: 75 mg Dextrose (D50w Syringe 50 Ml*) 12.5 gm IV PUSH .FOR FS < 60 - SS PRN PRN Reason: FS < 60 Hydralazine HCl (Apresoline Tab*) 50 mg PO BID [facility] Last Admin: 01/05/19 08:53 Dose: 50 mg Clindamycin HCl/Dextrose (Cleocin 300 Mg Ivpemix(*)) 300 mg in 50 mls @ 200 mls /hr IV Q8H [facility] Last Admin: 01/05/19 13:23 Dose: 200 mls/hr Insulin Glargine (Lantus(*)) 40 units SUBCUT Q24H [facility] Last Admin: 01/04/19 23:40 Dose: 40 units Insulin Glargine (Lantus(*)) 7 units SUBCUT DAILY [facility] Last Admin: 01/05/19 08:56 Dose: 7 unit Insulin Human Lispro (Humalog*) 0 units SUBCUT [facility]; Protocol Last Admin: 01/05/19 14:00 Dose: 4 unit Insulin Human Lispro (Humalog*) 0 units SUBCUT [facility]; Protocol Last Admin: 01/05/19 14:01 Dose: 2 units Levothyroxine Sodium (Synthroid Tab*) 75 mcg PO DAILY@0600 [facility] Last Admin: 01/05/19 05:32 Dose: 75 mcg Metoprolol Tartrate (Lopressor Iv*) 5 mg IV Q4HR PRN PRN Reason: pulse Ondansetron HCl (Zofran Inj*) 4 mg IV Q4H PRN PRN Reason: NAUSEA/VOMITING Last Admin: 01/02/19 12:51 Dose: 4 mg Oxycodone HCl (Roxycodone Tab*) 5 mg PO Q8H PRN PRN Reason: PAIN Last Admin: 01/05/19 05:30 Dose: 5 mg Polyethylene Glycol/Electrolytes (Miralax*) 17 gm PO DAILY PRN PRN Reason: CONSTIPATION Last Admin: 01/04/19 09:59 Dose: 17 gm Sodium Biphosphate/Sodium Phosphate (Fleet Enema*) 1 bottle [place] DAILY PRN PRN Reason: CONSTIPATION Last Admin: 01/05/19 06:24 Dose: 1 bottle Vital Signs - 8 hr 01/05/19 01/05/19 08:57 11:05 Temperature 98.1 F Pulse Rate 81 Respiratory 16 14 Rate Blood Pressure 137/61 (mmHg) O2 Sat by Pulse 99 Oximetry Oxygen Devices in Use Now: None Appearance: sitting in chair, NAD Eyes: No Scleral Icterus, PERRLA Ears/Nose/Mouth/Throat: NL Teeth, Lips, Gums, Clear Oropharnyx Neck: NL Appearance and Movements; NL JVP, Trachea Midline Respiratory: Symmetrical Chest Expansion and Respiratory Effort, - - fine rales in b/l bases Cardiovascular: RRR Abdominal: - - distended Extremities: - - b/l 2+ edema Skin: - - LLE erytheam from ankle to 2 inches belwo knee. After wrapping in [place] yesterday wounds are sloughing and more violacious Neurological: Alert and Oriented x 3 Result Diagrams: 01/05/19 10:09 01/05/19 07:48 Microbiology and Other Data: Microbiology 01/01/19 21:07 Aerobic Blood Culture - Preliminary Blood Venous No Growth Day 1 Anaerobic Blood Culture - Preliminary No Growth Day 1 01/01/19 21:00 Aerobic Blood Culture - Preliminary Blood Venous No Growth Day 1 Anaerobic Blood Culture - Preliminary No Growth Day 1 Assess/Plan/Problems-Billing Assessment: 68 yo M h/o DM2, CKD (baseline cr 2.3 per patient), CAD, afib lives in [place] pw cough, chills, SOB and increased bilateral LE edema and LLE erythema - Patient Problems (1) Pneumonia Comment: cough, chills, SOB, leukocytosis Above may be in setting of CHF and cellulitis but CT report from francisca with concern for RUL infiltrate day 12/17 azithromycin 01/05 CTX changed to Vancomycin then changed to clindamycin which will also cover PNA (2) Cellulitis Comment: LLE Skin breakdown suspected in setting of increased LE edema from CHF Slowly impoving WBC slowing improving appreciate ID c/s (3) Acute exacerbation of CHF (congestive heart failure) Comment: Acute systolic based on echo here strict I/O, daily weights, fluid restrict Holding lasix 2/2 NABIL on CKD Diuresis as capable; likely when cellulitis improves. Limited by CKD and current infection V/Q low risk - suspect decompensation in setting of PNA and/or cellulitis (4) Atrial fibrillation Comment: Restart pradaxa for afib. No recommended renal dosing for current CrCl Metoprolol, coreg (5) Diabetes Comment: HbA1c 10% Basal bolus insulin added additional 7 units lantus in AM starting 01/03 (total now 47 units/24 hrs) (6) CKD (chronic kidney disease) Comment: noted complicated by NABIL in setting of sepsis from above Holding lasix in setting of NABIL (7) Elevated troponin Comment: No chest pain Suspect demand in setting of PNA, CHF, cellulitis (8) DVT prophylaxis Comment: pradaxa
[2019-01-05] MEDS: Polyethylene Glycol 3350* 17 GM PACKET PO PRN (18:04)
[2019-01-06] MEDS: Acetaminophen TAB* 325 MG PO PRN (03:35)
[2019-01-06] MEDS: oxyCODONE TAB* 5 MG TAB PO PRN ×2 (03:36→16:10)
[2019-01-06] MEDS: Clindamycin 300 MG IVPREMIX(* 300 MG/50 ML SDV IV SCH ×3 (03:37→20:07)
[2019-01-06] MEDS ORDERED: Vancomycin Random Level* NOTE FOLLOW UP ONE (06:00)
[2019-01-06 06:05] LABS: Hematocrit 35 % (42-52); Hemoglobin 11.6 g/dL (14.0-18.0); Mean Corpuscular HGB Conc 33 g/dL (31-36); Mean Corpuscular Hemoglobin 30 pg (27-31); Mean Corpuscular Volume 90 fL (80-94); Mean Platelet Volume 10.3 fL (7.4-10.4); Platelet Count 204 10^3/uL (150-450); Red Blood Count 3.91 10^6 /uL (4.18-5.48); Red Cell Distribution Width 15 % (10.5-15); White Blood Count 19.6 10^3/uL (3.5-10.8)
[2019-01-06 06:16] LABS: BUN/Creatinine Ratio 28.2 (8-20); Calcium 7.8 mg/dL (8.6-10.3); EGFR African American 27.7 (>60); EGFR Non-African American 22.9 (>60)
[2019-01-06] MEDS: Levothyroxine TAB* 75 MCG TAB PO SCH (06:29)
[2019-01-06 06:32] LABS: ABS Eosinophils 0.5 10^3/ul (0-0.6); ABS Lymphocytes 1.7 10^3/ul (1.0-4.8); ABS Neutrophils 16.4 10^3/ul (1.5-7.7); Eosinophil % 2.3 %; Lymphocyte % 8.9 %; Nucleated Red Blood Cells % 0.1
[2019-01-06 07:08] LABS: Vancomycin Random 15.4 mcg/mL
[2019-01-06] MEDS: Insulin LISPRO* 1 UNITS UNIT SUBCUT SCH ×6 (07:41→18:01)
[2019-01-06] MEDS: DABIGATRAN 75 MG PO SCH ×2 (09:39→20:15)
[2019-01-06] MEDS: Carvedilol TAB* 3.125 MG PO SCH ×2 (09:39→20:16)
[2019-01-06] MEDS: hydrALAZINE TAB* 25 MG PO SCH ×2 (09:39→20:15)
[2019-01-06] MEDS: Atorvastatin* 10 MG TAB PO SCH (09:40)
[2019-01-06] MEDS: Insulin GLARGINE(*) 1 UNITS UNIT SUBCUT SCH ×2 (09:40→23:28)
--- NOTE | 2019-01-06 15:10 | PN ---
Subjective Date of Service: 01/06/19 Interval History: Leg continues to be swollen, erythematous Family History: Unchanged from Admission Social History: Unchanged from Admission Past Medical History: Unchanged from Admission Objective Active Medications: Acetaminophen (Tylenol Tab*) 650 mg PO Q4H PRN PRN Reason: FEVER/PAIN Last Admin: 01/06/19 03:35 Dose: 650 mg Atorvastatin Calcium (Lipitor*) 10 mg PO DAILY [facility] Last Admin: 01/06/19 09:40 Dose: 10 mg Carvedilol (Coreg Tab*) 3.125 mg PO BID [facility] Last Admin: 01/06/19 09:39 Dose: 3.125 mg Dabigatran (Pradaxa Cap(Nf)) 75 mg PO BID [facility] Last Admin: 01/06/19 09:39 Dose: 75 mg Dextrose (D50w Syringe 50 Ml*) 12.5 gm IV PUSH .FOR FS < 60 - SS PRN PRN Reason: FS < 60 Hydralazine HCl (Apresoline Tab*) 50 mg PO BID [facility] Last Admin: 01/06/19 09:39 Dose: 50 mg Clindamycin HCl/Dextrose (Cleocin 300 Mg Ivpemix(*)) 300 mg in 50 mls @ 200 mls /hr IV Q8H [facility] Last Admin: 01/06/19 12:44 Dose: 200 mls/hr Insulin Glargine (Lantus(*)) 40 units SUBCUT Q24H [facility] Last Admin: 01/05/19 22:14 Dose: 40 units Insulin Glargine (Lantus(*)) 7 units SUBCUT DAILY [facility] Last Admin: 01/06/19 09:40 Dose: 7 unit Insulin Human Lispro (Humalog*) 0 units SUBCUT [facility]; Protocol Last Admin: 01/06/19 12:43 Dose: 3 unit Insulin Human Lispro (Humalog*) 0 units SUBCUT AC [facility]; Protocol Last Admin: 01/06/19 13:57 Dose: Not Given Levothyroxine Sodium (Synthroid Tab*) 75 mcg PO DAILY@0600 [facility] Last Admin: 01/06/19 06:29 Dose: 75 mcg Metoprolol Tartrate (Lopressor Iv*) 5 mg IV Q4HR PRN PRN Reason: pulse Ondansetron HCl (Zofran Inj*) 4 mg IV Q4H PRN PRN Reason: NAUSEA/VOMITING Last Admin: 01/02/19 12:51 Dose: 4 mg Oxycodone HCl (Roxycodone Tab*) 5 mg PO Q8H PRN PRN Reason: PAIN Last Admin: 01/06/19 03:36 Dose: 5 mg Polyethylene Glycol/Electrolytes (Miralax*) 17 gm PO DAILY PRN PRN Reason: CONSTIPATION Last Admin: 01/05/19 18:04 Dose: 17 gm Sodium Biphosphate/Sodium Phosphate (Fleet Enema*) 1 bottle [place] DAILY PRN PRN Reason: CONSTIPATION Last Admin: 01/05/19 06:24 Dose: 1 bottle Vital Signs - 8 hr 01/06/19 01/06/19 01/06/19 08:00 08:34 11:23 Temperature 97.9 F 98.7 F Pulse Rate 81 80 Respiratory 18 18 16 Rate Blood Pressure 149/62 165/53 (mmHg) O2 Sat by Pulse 100 100 Oximetry Oxygen Devices in Use Now: Nasal Cannula Eyes: No Scleral Icterus Neck: NL Appearance and Movements; NL JVP Respiratory: Symmetrical Chest Expansion and Respiratory Effort Cardiovascular: NL Sounds; No Murmurs; No JVD Abdominal: NL Sounds; No Tenderness; No Distention Extremities: - - 1+ Edema, sig edema, some drainage and erythema Neurological: Alert and Oriented x 3 Result Diagrams: 01/06/19 05:42 01/06/19 05:40 Microbiology and Other Data: Microbiology 01/01/19 21:07 Aerobic Blood Culture - Preliminary Blood Venous No Growth Day 1 Anaerobic Blood Culture - Preliminary No Growth Day 1 01/01/19 21:00 Aerobic Blood Culture - Preliminary Blood Venous No Growth Day 1 Anaerobic Blood Culture - Preliminary No Growth Day 1 Assess/Plan/Problems-Billing Assessment: 68 yo M h/o DM2, CKD (baseline cr 2.3 per patient), CAD, afib lives in [place] pw cough, chills, SOB and increased bilateral LE edema and LLE erythema - Patient Problems (1) Cellulitis Current Visit: Yes Status: Acute Code(s): L03.90 - CELLULITIS, UNSPECIFIED SNOMED Code(s): 669019217 Comment: LLE Skin breakdown suspected in setting of increased LE edema from CHF Slowly impoving WBC slowing improving appreciate ID c/s On clindamycin If not improving, will consider expanding antibiotics (2) Atrial fibrillation Current Visit: Yes Status: Acute Code(s): I48.91 - UNSPECIFIED ATRIAL FIBRILLATION SNOMED Code(s): 38170000 Comment: Restart pradaxa for afib. No recommended renal dosing for current CrCl Metoprolol, coreg (3) Acute exacerbation of CHF (congestive heart failure) Current Visit: Yes Status: Acute Code(s): I50.9 - HEART FAILURE, UNSPECIFIED SNOMED Code(s): 205402542 Comment: Acute systolic based on echo here strict I/O, daily weights, fluid restrict Holding lasix 2/2 NABIL on CKD Diuresis as capable; likely when cellulitis improves. Limited by CKD and current infection V/Q low risk - suspect decompensation in setting of PNA and/or cellulitis (4) CKD (chronic kidney disease) Current Visit: Yes Status: Acute Code(s): N18.9 - CHRONIC KIDNEY DISEASE, UNSPECIFIED SNOMED Code(s): 567107055 Comment: noted complicated by NABIL in setting of sepsis from above Holding lasix in setting of NABIL (5) Diabetes Current Visit: Yes Status: Acute Code(s): E11.9 - TYPE 2 DIABETES MELLITUS WITHOUT COMPLICATIONS SNOMED Code(s): 55743727 Comment: HbA1c 10% Basal bolus insulin added additional 7 units lantus in AM starting 01/03 (total now 47 units/24 hrs) (6) Elevated troponin Current Visit: Yes Status: Acute Code(s): R74.8 - ABNORMAL LEVELS OF OTHER SERUM ENZYMES SNOMED Code(s): 745331993 Comment: No chest pain Suspect demand in setting of PNA, CHF, cellulitis (7) DVT prophylaxis Current Visit: Yes Status: Acute Code(s): Z29.9 - ENCOUNTER FOR PROPHYLACTIC MEASURES, UNSPECIFIED SNOMED Code(s): 638441832 Comment: pradaxa (8) Pneumonia Current Visit: Yes Status: Acute Code(s): J18.9 - PNEUMONIA, UNSPECIFIED ORGANISM SNOMED Code(s): 914152845 Comment: cough, chills, SOB, leukocytosis Above may be in setting of CHF and cellulitis but CT report from [facility]isca with concern for RUL infiltrate day 12/17 azithromycin 01/05 CTX changed to Vancomycin then changed to clindamycin which will also cover PNA
[2019-01-06] MEDS: Polyethylene Glycol 3350* 17 GM PACKET PO PRN (20:36)
[2019-01-07] MEDS: oxyCODONE TAB* 5 MG TAB PO PRN ×3 (00:53→17:34)
[2019-01-07] MEDS: Acetaminophen TAB* 325 MG PO PRN ×2 (00:53→20:49)
[2019-01-07] MEDS: Clindamycin 300 MG IVPREMIX(* 300 MG/50 ML SDV IV SCH ×3 (04:42→20:42)
[2019-01-07] MEDS: Levothyroxine TAB* 75 MCG TAB PO SCH (05:12)
[2019-01-07 06:13] LABS: Hematocrit 37 % (42-52); Hemoglobin 11.9 g/dL (14.0-18.0); Mean Corpuscular HGB Conc 33 g/dL (31-36); Mean Corpuscular Hemoglobin 30 pg (27-31); Mean Corpuscular Volume 91 fL (80-94); Mean Platelet Volume 9.8 fL (7.4-10.4); Platelet Count 223 10^3/uL (150-450); Red Blood Count 4.01 10^6 /uL (4.18-5.48); Red Cell Distribution Width 14 % (10.5-15); White Blood Count 18.7 10^3/uL (3.5-10.8)
[2019-01-07 06:29] LABS: BUN/Creatinine Ratio 27.2 (8-20); EGFR African American 30.6 (>60); EGFR Non-African American 25.3 (>60); Potassium 4.1 mmol/L (3.5-5.0)
[2019-01-07 07:25] LABS: ABS Eosinophils 0.3 10^3/ul (0-0.6); ABS Lymphocytes 1.7 10^3/ul (1.0-4.8); ABS Monocytes 1.2 10^3/ul (0-0.8); ABS Neutrophils 15.5 10^3/ul (1.5-7.7); Eosinophil % 1.6 %; Lymphocyte % 9.1 %
[2019-01-07] MEDS: DABIGATRAN 75 MG PO SCH ×2 (10:08→20:43)
[2019-01-07] MEDS: Atorvastatin* 10 MG TAB PO SCH (10:08)
[2019-01-07] MEDS: Carvedilol TAB* 3.125 MG PO SCH ×2 (10:09→20:43)
[2019-01-07] MEDS: hydrALAZINE TAB* 25 MG PO SCH ×2 (10:09→20:43)
[2019-01-07] MEDS: Insulin GLARGINE(*) 1 UNITS UNIT SUBCUT SCH ×2 (10:10→22:36)
[2019-01-07] MEDS: Insulin LISPRO* 1 UNITS UNIT SUBCUT SCH ×6 (10:10→17:34)
--- NOTE | 2019-01-07 17:17 | PN ---
Subjective Date of Service: 01/07/19 Interval History: Reports some improvement in LE pain and breathing Family History: Unchanged from Admission Social History: Unchanged from Admission Past Medical History: Unchanged from Admission Objective Active Medications: Acetaminophen (Tylenol Tab*) 650 mg PO Q4H PRN PRN Reason: FEVER/PAIN Last Admin: 01/07/19 00:53 Dose: 650 mg Atorvastatin Calcium (Lipitor*) 10 mg PO DAILY [facility] Last Admin: 01/07/19 10:08 Dose: 10 mg Carvedilol (Coreg Tab*) 3.125 mg PO BID [facility] Last Admin: 01/07/19 10:09 Dose: 3.125 mg Dabigatran (Pradaxa Cap(Nf)) 75 mg PO BID [facility] Last Admin: 01/07/19 10:08 Dose: 75 mg Dextrose (D50w Syringe 50 Ml*) 12.5 gm IV PUSH .FOR FS < 60 - SS PRN PRN Reason: FS < 60 Hydralazine HCl (Apresoline Tab*) 50 mg PO BID [facility] Last Admin: 01/07/19 10:09 Dose: 50 mg Clindamycin HCl/Dextrose (Cleocin 300 Mg Ivpemix(*)) 300 mg in 50 mls @ 200 mls /hr IV Q8H [facility] Last Admin: 01/07/19 12:55 Dose: 200 mls/hr Insulin Glargine (Lantus(*)) 40 units SUBCUT Q24H [facility] Last Admin: 01/06/19 23:28 Dose: 40 units Insulin Glargine (Lantus(*)) 7 units SUBCUT DAILY [facility] Last Admin: 01/07/19 10:10 Dose: 7 unit Insulin Human Lispro (Humalog*) 0 units SUBCUT [facility]; Protocol Last Admin: 01/07/19 12:31 Dose: Not Given Insulin Human Lispro (Humalog*) 0 units SUBCUT [facility]; Protocol Last Admin: 01/07/19 12:32 Dose: Not Given Levothyroxine Sodium (Synthroid Tab*) 75 mcg PO DAILY@0600 [facility] Last Admin: 01/07/19 05:12 Dose: 75 mcg Metoprolol Tartrate (Lopressor Iv*) 5 mg IV Q4HR PRN PRN Reason: pulse Ondansetron HCl (Zofran Inj*) 4 mg IV Q4H PRN PRN Reason: NAUSEA/VOMITING Last Admin: 01/02/19 12:51 Dose: 4 mg Oxycodone HCl (Roxycodone Tab*) 5 mg PO Q8H PRN PRN Reason: PAIN Last Admin: 01/07/19 10:09 Dose: 5 mg Polyethylene Glycol/Electrolytes (Miralax*) 17 gm PO DAILY PRN PRN Reason: CONSTIPATION Last Admin: 01/06/19 20:36 Dose: 17 gm Sodium Biphosphate/Sodium Phosphate (Fleet Enema*) 1 bottle [place] DAILY PRN PRN Reason: CONSTIPATION Last Admin: 01/05/19 06:24 Dose: 1 bottle Vital Signs - 8 hr 01/07/19 01/07/19 01/07/19 10:09 11:57 16:01 Temperature 97.3 F 97.5 F Pulse Rate 78 84 Respiratory 16 18 17 Rate Blood Pressure 147/63 166/70 (mmHg) O2 Sat by Pulse 99 97 Oximetry Oxygen Devices in Use Now: Nasal Cannula Eyes: No Scleral Icterus Ears/Nose/Mouth/Throat: NL Teeth, Lips, Gums Neck: NL Appearance and Movements; NL JVP Respiratory: Symmetrical Chest Expansion and Respiratory Effort, Clear to Auscultation Cardiovascular: NL Sounds; No Murmurs; No JVD, RRR Abdominal: NL Sounds; No Tenderness; No Distention Extremities: - - Bilateral LE edema, Erythema in LE mildly improved, serosanginous discharge mildly improved,warm Neurological: Alert and Oriented x 3 Result Diagrams: 01/07/19 05:58 01/07/19 05:58 Microbiology and Other Data: Microbiology 01/01/19 21:07 Aerobic Blood Culture - Preliminary Blood Venous No Growth Day 1 Anaerobic Blood Culture - Preliminary No Growth Day 1 01/01/19 21:00 Aerobic Blood Culture - Preliminary Blood Venous No Growth Day 1 Anaerobic Blood Culture - Preliminary No Growth Day 1 Assess/Plan/Problems-Billing Assessment: 68 yo M h/o DM2, CKD (baseline cr 2.3 per patient), CAD, afib lives in [place] pw cough, chills, SOB and increased bilateral LE edema and LLE erythema - Patient Problems (1) Cellulitis Current Visit: Yes Status: Acute Code(s): L03.90 - CELLULITIS, UNSPECIFIED SNOMED Code(s): 419091481 Comment: LLE Skin breakdown suspected in setting of increased LE edema from CHF and poor wound healing in the setting of diabetes Slowly impoving, WBC slowing improving but crp still high and leg very erythematous appreciate ID c/s On clindamycin per ID Wound culture today.Discharge may be inacurrate but may help with antibiotic choice as pt is only slowly improving If not improving, consider expanding antibiotics and discussion with Dr Lazo Wound care consult (2) Atrial fibrillation Current Visit: Yes Status: Acute Code(s): I48.91 - UNSPECIFIED ATRIAL FIBRILLATION SNOMED Code(s): 44926134 Comment: pradaxa for afib. No recommended renal dosing for current CrCl Metoprolol, coreg (3) Acute exacerbation of CHF (congestive heart failure) Current Visit: Yes Status: Acute Code(s): I50.9 - HEART FAILURE, UNSPECIFIED SNOMED Code(s): 893752504 Comment: Acute systolic based on echo here strict I/O, daily weights, fluid restrict Holding lasix 2/2 NABIL on CKD Diuresis as capable; likely when cellulitis improves. Limited by CKD and current infection V/Q low risk - suspect decompensation in setting of PNA and/or cellulitis (4) CKD (chronic kidney disease) Current Visit: Yes Status: Acute Code(s): N18.9 - CHRONIC KIDNEY DISEASE, UNSPECIFIED SNOMED Code(s): 910012733 Comment: Stage 4 CKD complicated by NABIL in setting of sepsis from above Holding lasix in setting of NABIL Follows with a link assembler in [place] NABIL improving Counselled on importance of weight loss and improved diabetic control (5) Diabetes Current Visit: Yes Status: Acute Code(s): E11.9 - TYPE 2 DIABETES MELLITUS WITHOUT COMPLICATIONS SNOMED Code(s): 68021978 Comment: HbA1c 10% Basal bolus insulin added additional 7 units lantus in AM starting 01/03 (total now 47 units/24 hrs) Long discussion and counselled on the importance of weight loss, dietary modificatication and improved control of diabetes. Multiple diabetic complications including Nephropathy, poor wound healing, likely Peripheral vascular disease (6) Elevated troponin Current Visit: Yes Status: Acute Code(s): R74.8 - ABNORMAL LEVELS OF OTHER SERUM ENZYMES SNOMED Code(s): 646939667 Comment: No chest pain When he was admitted, troponin elevated and was thought to be demand in setting of PNA, CHF, cellulitis (7) DVT prophylaxis Current Visit: Yes Status: Acute Code(s): Z29.9 - ENCOUNTER FOR PROPHYLACTIC MEASURES, UNSPECIFIED SNOMED Code(s): 517420943 Comment: pradaxa (8) Pneumonia Current Visit: Yes Status: Acute Code(s): J18.9 - PNEUMONIA, UNSPECIFIED ORGANISM SNOMED Code(s): 999334233 Comment: cough, chills, SOB, leukocytosis Above may be in setting of CHF and cellulitis but CT report from [place] with concern for RUL infiltrate day 12/17 azithromycin 01/05 CTX changed to Vancomycin then changed to clindamycin by ID SOB improved On RA
[2019-01-08] MEDS: Acetaminophen TAB* 325 MG PO PRN ×4 (01:11→20:14)
[2019-01-08] MEDS: oxyCODONE TAB* 5 MG TAB PO PRN ×4 (01:12→23:47)
[2019-01-08] MEDS: Clindamycin 300 MG IVPREMIX(* 300 MG/50 ML SDV IV SCH ×3 (04:08→19:30)
[2019-01-08] MEDS: Levothyroxine TAB* 75 MCG TAB PO SCH (06:03)
[2019-01-08 07:11] LABS: Hematocrit 36 % (42-52); Hemoglobin 11.6 g/dL (14.0-18.0); Mean Corpuscular HGB Conc 33 g/dL (31-36); Mean Corpuscular Hemoglobin 30 pg (27-31); Mean Corpuscular Volume 91 fL (80-94); Mean Platelet Volume 9.6 fL (7.4-10.4); Platelet Count 269 10^3/uL (150-450); Red Cell Distribution Width 14 % (10.5-15); White Blood Count 17.9 10^3/uL (3.5-10.8)
[2019-01-08 07:36] LABS: BUN/Creatinine Ratio 24.6 (8-20); C Reactive Protein 100.55 mg/L (<8.01); Calcium 8.2 mg/dL (8.6-10.3); EGFR African American 31.4 (>60); Potassium 4.6 mmol/L (3.5-5.0)
[2019-01-08 08:00] LABS: ABS Basophils 0.1 10^3/ul (0-0.2); ABS Eosinophils 0.3 10^3/ul (0-0.6); ABS Lymphocytes 1.9 10^3/ul (1.0-4.8); ABS Monocytes 1.2 10^3/ul (0-0.8); ABS Neutrophils 14.4 10^3/ul (1.5-7.7); Eosinophil % 1.8 %; Lymphocyte % 10.5 %
[2019-01-08] MEDS: Insulin LISPRO* 1 UNITS UNIT SUBCUT SCH ×6 (08:36→18:56)
[2019-01-08] MEDS: Carvedilol TAB* 3.125 MG PO SCH ×2 (08:43→20:14)
[2019-01-08] MEDS: DABIGATRAN 75 MG PO SCH ×2 (08:43→20:13)
[2019-01-08] MEDS: hydrALAZINE TAB* 25 MG PO SCH ×2 (08:43→20:13)
[2019-01-08] MEDS: Atorvastatin* 10 MG TAB PO SCH (08:43)
--- NOTE | 2019-01-08 09:38 | PN ---
Subjective Date of Service: 01/08/19 Interval History: HD # 7 on 01/08 68M h/o IDDM, CKD (baseline cr 2.3 per patient), CAD s/p prior [place], afib lives in [place] admitted with skin and soft tissue infection and acute CHF exacerbation (EF 40-45% on admission, no baseline) Overnight no acute events, VSS Labs; persistent leukocytosis, Cr 2.4 This morning, has c/o pain to L lower extremity, oterhwise doing Ok toelrating diet. NO CP, SOB, complaints, deos report constipation Family History: Unchanged from Admission Social History: Unchanged from Admission Past Medical History: Unchanged from Admission Objective Active Medications: Acetaminophen (Tylenol Tab*) 650 mg PO Q4H PRN PRN Reason: FEVER/PAIN Last Admin: 01/08/19 01:11 Dose: 650 mg Atorvastatin Calcium (Lipitor*) 10 mg PO DAILY [facility] Last Admin: 01/08/19 08:43 Dose: 10 mg Carvedilol (Coreg Tab*) 3.125 mg PO BID [facility] Last Admin: 01/08/19 08:43 Dose: 3.125 mg Dabigatran (Pradaxa Cap(Nf)) 75 mg PO BID [facility] Last Admin: 01/08/19 08:43 Dose: 75 mg Dextrose (D50w Syringe 50 Ml*) 12.5 gm IV PUSH .FOR FS < 60 - SS PRN PRN Reason: FS < 60 Hydralazine HCl (Apresoline Tab*) 50 mg PO BID [facility] Last Admin: 01/08/19 08:43 Dose: 50 mg Clindamycin HCl/Dextrose (Cleocin 300 Mg Ivpemix(*)) 300 mg in 50 mls @ 200 mls /hr IV Q8H [facility] Last Admin: 01/08/19 04:08 Dose: 200 mls/hr Insulin Glargine (Lantus(*)) 40 units SUBCUT Q24H [facility] Last Admin: 01/07/19 22:36 Dose: 40 units Insulin Glargine (Lantus(*)) 7 units SUBCUT DAILY [facility] Last Admin: 01/07/19 10:10 Dose: 7 unit Insulin Human Lispro (Humalog*) 0 units SUBCUT AC [facility]; Protocol Last Admin: 01/07/19 17:34 Dose: 4 unit Insulin Human Lispro (Humalog*) 0 units SUBCUT [facility]; Protocol Last Admin: 01/08/19 08:36 Dose: Not Given Levothyroxine Sodium (Synthroid Tab*) 75 mcg PO DAILY@0600 [facility] Last Admin: 01/08/19 06:03 Dose: 75 mcg Metoprolol Tartrate (Lopressor Iv*) 5 mg IV Q4HR PRN PRN Reason: pulse Ondansetron HCl (Zofran Inj*) 4 mg IV Q4H PRN PRN Reason: NAUSEA/VOMITING Last Admin: 01/02/19 12:51 Dose: 4 mg Oxycodone HCl (Roxycodone Tab*) 5 mg PO Q8H PRN PRN Reason: PAIN Last Admin: 01/08/19 08:43 Dose: 5 mg Polyethylene Glycol/Electrolytes (Miralax*) 17 gm PO DAILY PRN PRN Reason: CONSTIPATION Last Admin: 01/06/19 20:36 Dose: 17 gm Sodium Biphosphate/Sodium Phosphate (Fleet Enema*) 1 bottle [place] DAILY PRN PRN Reason: CONSTIPATION Last Admin: 01/05/19 06:24 Dose: 1 bottle Vital Signs - 8 hr 01/08/19 01/08/19 01/08/19 03:10 03:57 07:35 Temperature 97.4 F 97.3 F Pulse Rate 68 71 Respiratory 16 16 20 Rate Blood Pressure 130/62 140/70 (mmHg) O2 Sat by Pulse 97 98 Oximetry 01/08/19 01/08/19 08:00 08:43 Temperature Pulse Rate Respiratory 20 20 Rate Blood Pressure (mmHg) O2 Sat by Pulse Oximetry Oxygen Devices in Use Now: None Appearance: Pleasant man in NAD Eyes: No Scleral Icterus, PERRLA Ears/Nose/Mouth/Throat: NL Teeth, Lips, Gums Neck: NL Appearance and Movements; NL JVP, Trachea Midline Respiratory: Symmetrical Chest Expansion and Respiratory Effort, Clear to Auscultation Cardiovascular: NL Sounds; No Murmurs; No JVD, RRR Abdominal: - - Distended non tender Lymphatic: No Cervical Adenopathy, No Axillary Adenopathy Extremities: No Edema, - - L lower ext erythymetous to below knee, sig fluid blistering and drainage to outer calf, inner calf with crusting and chronic venous stasis distally, erythema and wamrth proximally Skin: No Rash or Ulcers Neurological: Alert and Oriented x 3, NL Sensation Result Diagrams: 01/08/19 06:35 01/08/19 06:35 Microbiology and Other Data: Microbiology 01/01/19 21:07 Aerobic Blood Culture - Preliminary Blood Venous No Growth Day 1 Anaerobic Blood Culture - Preliminary No Growth Day 1 01/01/19 21:00 Aerobic Blood Culture - Preliminary Blood Venous No Growth Day 1 Anaerobic Blood Culture - Preliminary No Growth Day 1 Assess/Plan/Problems-Billing Assessment: 68M h/o DM2, CKD (baseline cr 2.3 per patient), CAD s/p prior [place], afib lives in [place] admitted with skin and soft tissue infection and acute CHF exacerbation (EF 40-45% on admission, no baseline) - Patient Problems (1) Cellulitis Current Visit: Yes Status: Acute Code(s): L03.90 - CELLULITIS, UNSPECIFIED SNOMED Code(s): 287233503 Comment: - LLE, skin breakdown suspected in setting of increased LE edema from CHF and poor wound healing in the setting of diabetes - On clindamycin per ID, Day 7/__ on 01/08 - Wound Cx NGTD, Sputum shows MRSA? On Clinda - Wound care consult - Consider doppler for collection if no improvement - Oxy for pain, start bowel regimen (2) Pneumonia Current Visit: Yes Status: Acute Code(s): J18.9 - PNEUMONIA, UNSPECIFIED ORGANISM SNOMED Code(s): 618452580 Comment: - Cough, chills, SOB, leukocytosis on admission, now fully tx (3) Acute exacerbation of CHF (congestive heart failure) Current Visit: Yes Status: Acute Code(s): I50.9 - HEART FAILURE, UNSPECIFIED SNOMED Code(s): 282054870 Comment: - Acute systolic based on echo here - strict I/O, daily weights, fluid restrict - Diuresis held initially, will start today 01/09 given sig edema - Diuresis as capable; will trial today CKD appears at baseline - V/Q low risk - suspect decompensation in setting of PNA and/or cellulitis (4) Atrial fibrillation Current Visit: Yes Status: Acute Code(s): I48.91 - UNSPECIFIED ATRIAL FIBRILLATION SNOMED Code(s): 30660688 Comment: - CHADS VASC >3 Pradaxa for afib. - No recommended renal dosing for current CrCl - Rate controlled on home Carvedilol (5) CKD (chronic kidney disease) Current Visit: Yes Status: Acute Code(s): N18.9 - CHRONIC KIDNEY DISEASE, UNSPECIFIED SNOMED Code(s): 433136576 Comment: - Stage 4 CKD - Complicated by NABIL in setting of sepsis from above - Holding lasix in setting of NABIL - Follows with a sanding line operator in [place] - NABIL improving Counselled on importance of weight loss and improved diabetic control (6) Diabetes Current Visit: Yes Status: Acute Code(s): E11.9 - TYPE 2 DIABETES MELLITUS WITHOUT COMPLICATIONS SNOMED Code(s): 53583112 Comment: - HbA1c 10% - SSI Lispro - Added additional 7 units lantus in AM, 40 U in PM (7) Elevated troponin Current Visit: Yes Status: Acute Code(s): R74.8 - ABNORMAL LEVELS OF OTHER SERUM ENZYMES SNOMED Code(s): 965040132 Comment: - When admitted, thought to be Type 2 Ischemia, 2/2 to Demand, trended down (8) DVT prophylaxis Current Visit: Yes Status: Acute Code(s): Z29.9 - ENCOUNTER FOR PROPHYLACTIC MEASURES, UNSPECIFIED SNOMED Code(s): 441229636 Comment: - pradaxa (9) DNR (do not resuscitate) Current Visit: Yes Status: Acute Status and Disposition: Inpatient
[2019-01-08] MEDS: Insulin GLARGINE(*) 1 UNITS UNIT SUBCUT SCH ×3 (09:53→22:02)
[2019-01-08] MEDS ORDERED: oxyCODONE TAB* 5 MG TAB PO PRN (13:31)
[2019-01-08] MEDS ORDERED: Furosemide IV* 10 MG/ML VIAL (40 MG) IV ONE (13:37)
[2019-01-08] MEDS ORDERED: oxyCODONE TAB* 5 MG TAB PO ONE (13:52)
[2019-01-08] MEDS: Polyethylene Glycol 3350* 17 GM PACKET PO SCH (15:30)
[2019-01-08] MEDS: Magnesium Hydroxide LIQ* 30 ML UDC PO SCH (20:15)
[2019-01-09] MEDS: Clindamycin 300 MG IVPREMIX(* 300 MG/50 ML SDV IV SCH ×2 (03:55→11:32)
[2019-01-09] MEDS: Levothyroxine TAB* 75 MCG TAB PO SCH (04:40)
[2019-01-09 06:26] LABS: Hematocrit 35 % (42-52); Hemoglobin 11.5 g/dL (14.0-18.0); Mean Corpuscular HGB Conc 33 g/dL (31-36); Mean Corpuscular Hemoglobin 30 pg (27-31); Mean Corpuscular Volume 91 fL (80-94); Mean Platelet Volume 9.3 fL (7.4-10.4); Platelet Count 290 10^3/uL (150-450); Red Blood Count 3.81 10^6 /uL (4.18-5.48); Red Cell Distribution Width 14 % (10.5-15); White Blood Count 17.4 10^3/uL (3.5-10.8)
[2019-01-09 06:41] LABS: BUN/Creatinine Ratio 20.9 (8-20); Calcium 8.2 mg/dL (8.6-10.3); EGFR Non-African American 24.8 (>60); Potassium 4.7 mmol/L (3.5-5.0)
[2019-01-09] MEDS: Insulin LISPRO* 1 UNITS UNIT SUBCUT SCH ×6 (07:34→17:53)
[2019-01-09] MEDS: Magnesium Hydroxide LIQ* 30 ML UDC PO SCH ×2 (07:38→16:46)
[2019-01-09] MEDS: oxyCODONE TAB* 5 MG TAB PO PRN ×2 (07:38→16:46)
[2019-01-09 07:39] LABS: ABS Basophils 0.1 10^3/ul (0-0.2); ABS Eosinophils 0.3 10^3/ul (0-0.6); ABS Lymphocytes 1.8 10^3/ul (1.0-4.8); ABS Monocytes 1.3 10^3/ul (0-0.8); ABS Neutrophils 13.9 10^3/ul (1.5-7.7); Eosinophil % 1.5 %; Lymphocyte % 10.4 %
--- NOTE | 2019-01-09 07:52 | PN ---
Subjective Date of Service: 01/09/19 Interval History: HD # 8 on 01/09 68M h/o IDDM, CKD (baseline cr 2.3 per patient), CAD s/p prior [place], afib lives in [place] admitted with skin and soft tissue infection and acute CHF exacerbation (EF 40-45% on admission, no baseline) Overnight no acute events, VSS, afebrile, difficulties with pain control Labs; persistent leukocytosis, Cr 2.4-> 2.5, did start lasix yesterday This afternoon seen, pleasant and well, still with a lot of pain worse in the afternoon. Skin starting to slough No CP SOB GI or other MSK complaints Family History: Unchanged from Admission Social History: Unchanged from Admission Past Medical History: Unchanged from Admission Objective Active Medications: Acetaminophen (Tylenol Tab*) 650 mg PO Q4H PRN PRN Reason: FEVER/PAIN Last Admin: 01/08/19 20:14 Dose: 650 mg Atorvastatin Calcium (Lipitor*) 10 mg PO DAILY [facility] Last Admin: 01/08/19 08:43 Dose: 10 mg Carvedilol (Coreg Tab*) 3.125 mg PO BID [facility] Last Admin: 01/08/19 20:14 Dose: 3.125 mg Dabigatran (Pradaxa Cap(Nf)) 75 mg PO BID [facility] Last Admin: 01/08/19 20:13 Dose: 75 mg Dextrose (D50w Syringe 50 Ml*) 12.5 gm IV PUSH .FOR FS < 60 - SS PRN PRN Reason: FS < 60 Hydralazine HCl (Apresoline Tab*) 50 mg PO BID [facility] Last Admin: 01/08/19 20:13 Dose: 50 mg Clindamycin HCl/Dextrose (Cleocin 300 Mg Ivpemix(*)) 300 mg in 50 mls @ 200 mls /hr IV Q8H [facility] Last Admin: 01/09/19 03:55 Dose: 200 mls/hr Insulin Glargine (Lantus(*)) 40 units SUBCUT Q24H [facility] Last Admin: 01/08/19 22:02 Dose: 40 units Insulin Glargine (Lantus(*)) 7 units SUBCUT DAILY [facility] Last Admin: 01/08/19 15:29 Dose: Not Given Insulin Human Lispro (Humalog*) 0 units SUBCUT AC [facility]; Protocol Last Admin: 01/08/19 18:56 Dose: 1 unit Insulin Human Lispro (Humalog*) 0 units SUBCUT [facility]; Protocol Last Admin: 01/09/19 07:34 Dose: Not Given Levothyroxine Sodium (Synthroid Tab*) 75 mcg PO DAILY@0600 [facility] Last Admin: 01/09/19 04:40 Dose: 75 mcg Magnesium Hydroxide (Milk Of Magnesia Liq*) 30 ml PO BID [facility] Last Admin: 01/09/19 07:38 Dose: 30 ml Ondansetron HCl (Zofran Inj*) 4 mg IV Q4H PRN PRN Reason: NAUSEA/VOMITING Last Admin: 01/02/19 12:51 Dose: 4 mg Oxycodone HCl (Roxycodone Tab*) 10 mg PO Q8H PRN PRN Reason: DISCOMFORT Last Admin: 01/09/19 07:38 Dose: 10 mg Polyethylene Glycol/Electrolytes (Miralax*) 17 gm PO DAILY [facility] Last Admin: 01/08/19 15:30 Dose: 17 gm Sodium Biphosphate/Sodium Phosphate (Fleet Enema*) 1 bottle [place] DAILY PRN PRN Reason: CONSTIPATION Last Admin: 01/05/19 06:24 Dose: 1 bottle Vital Signs - 8 hr 01/08/19 01/09/19 01/09/19 23:51 03:42 07:38 Temperature 98.2 F 98.3 F Pulse Rate 81 Respiratory 18 18 Rate Blood Pressure 138/63 (mmHg) O2 Sat by Pulse 98 Oximetry 01/09/19 07:43 Temperature Pulse Rate Respiratory 18 Rate Blood Pressure (mmHg) O2 Sat by Pulse Oximetry Oxygen Devices in Use Now: None Appearance: Pleasant man in NAD Ears/Nose/Mouth/Throat: NL Teeth, Lips, Gums, Mucous Membranes Moist Neck: NL Appearance and Movements; NL JVP, Trachea Midline Respiratory: Symmetrical Chest Expansion and Respiratory Effort, Clear to Auscultation Cardiovascular: NL Sounds; No Murmurs; No JVD, RRR Abdominal: NL Sounds; No Tenderness; No Distention, No Hepatosplenomegaly Lymphatic: No Cervical Adenopathy Extremities: - - L LE with dusky sloughing skin over dense erytema, warmth Skin: - - See ext Neurological: Alert and Oriented x 3 Result Diagrams: 01/09/19 06:03 01/09/19 06:03 Microbiology and Other Data: Microbiology 01/01/19 21:07 Aerobic Blood Culture - Preliminary Blood Venous No Growth Day 1 Anaerobic Blood Culture - Preliminary No Growth Day 1 01/01/19 21:00 Aerobic Blood Culture - Preliminary Blood Venous No Growth Day 1 Anaerobic Blood Culture - Preliminary No Growth Day 1 Assess/Plan/Problems-Billing Assessment: 68M h/o DM2, CKD (baseline cr 2.3 per patient), CAD s/p prior [place], afib lives in [place] admitted with skin and soft tissue infection and acute CHF exacerbation (EF 40-45% on admission, no baseline) - Patient Problems (1) Cellulitis Current Visit: Yes Status: Acute Code(s): L03.90 - CELLULITIS, UNSPECIFIED SNOMED Code(s): 478259477 Comment: - LLE, skin breakdown suspected in setting of increased LE edema from CHF and poor wound healing in the setting of diabetes - On clindamycin per ID, Day 8/__ on 01/09 - Wound Cx NGTD, Sputum shows MRSA? On Clinda - Wound care consult - Consider doppler for collection if no improvement - Oxy for pain, start bowel regimen (2) Pneumonia Current Visit: Yes Status: Acute Code(s): J18.9 - PNEUMONIA, UNSPECIFIED ORGANISM SNOMED Code(s): 975675232 Comment: - Cough, chills, SOB, leukocytosis on admission, now fully tx (3) Acute exacerbation of CHF (congestive heart failure) Current Visit: Yes Status: Acute Code(s): I50.9 - HEART FAILURE, UNSPECIFIED SNOMED Code(s): 980687156 Comment: - Acute systolic based on echo here - strict I/O, daily weights, fluid restrict - Diuresis held initially, now on 40mg daily - Diuresis as capable; will trial today CKD appears at baseline - V/Q low risk - suspect decompensation in setting of PNA and/or cellulitis (4) Atrial fibrillation Current Visit: Yes Status: Acute Code(s): I48.91 - UNSPECIFIED ATRIAL FIBRILLATION SNOMED Code(s): 04966826 Comment: - CHADS VASC >3 Pradaxa for afib. - No recommended renal dosing for current CrCl - Rate controlled on home Carvedilol (5) CKD (chronic kidney disease) Current Visit: Yes Status: Acute Code(s): N18.9 - CHRONIC KIDNEY DISEASE, UNSPECIFIED SNOMED Code(s): 602514556 Comment: - Stage 4 CKD - Complicated by NABIL in setting of sepsis from above - Follows with a control engineer in [place] - NABIL improving, restart lasix Counselled on importance of weight loss and improved diabetic control (6) Diabetes Current Visit: Yes Status: Acute Code(s): E11.9 - TYPE 2 DIABETES MELLITUS WITHOUT COMPLICATIONS SNOMED Code(s): 80948104 Comment: - HbA1c 10% - SSI Lispro - Added additional 7 units lantus in AM, 40 U in PM (7) Elevated troponin Current Visit: Yes Status: Acute Code(s): R74.8 - ABNORMAL LEVELS OF OTHER SERUM ENZYMES SNOMED Code(s): 636620297 Comment: - When admitted, thought to be Type 2 Ischemia, 2/2 to Demand, trended down (8) DVT prophylaxis Current Visit: Yes Status: Acute Code(s): Z29.9 - ENCOUNTER FOR PROPHYLACTIC MEASURES, UNSPECIFIED SNOMED Code(s): 141334856 Comment: - pradaxa (9) DNR (do not resuscitate) Current Visit: Yes Status: Acute Status and Disposition: Inpatient
[2019-01-09] MEDS: hydrALAZINE TAB* 25 MG PO SCH ×2 (08:38→21:39)
[2019-01-09] MEDS: Atorvastatin* 10 MG TAB PO SCH (08:38)
[2019-01-09] MEDS: Carvedilol TAB* 3.125 MG PO SCH ×2 (08:38→21:40)
[2019-01-09] MEDS: DABIGATRAN 75 MG PO SCH ×2 (08:38→21:40)
[2019-01-09] MEDS: Polyethylene Glycol 3350* 17 GM PACKET PO SCH (08:39)
[2019-01-09] MEDS: Furosemide IV* 10 MG/ML VIAL (40 MG) IV SCH (08:39)
[2019-01-09] MEDS: Insulin GLARGINE(*) 1 UNITS UNIT SUBCUT SCH ×2 (08:39→21:40)
--- NOTE | 2019-01-09 13:40 | PN ---
Progress Note - Progress Note Date of Service: 01/09/19 SOAP: Subjective: CC: left leg cellulitis HPI: 68 year old diabetic man with left leg cellulitis; pain improving but not gone, worse with weight bearing. Oxycodone helps. Appetite ok, no fever, rash , or diarrhea. No cough or shortness of breath. Objective: Vital Signs Temp 37.0 C 01/09/19 11:51 Pulse 77 01/09/19 11:51 Resp 18 01/09/19 11:51 BP 130/56 01/09/19 11:51 Pulse Ox 97 01/09/19 11:51 Intake & Output 01/08/19 01/09/19 01/09/19 18:59 06:59 18:59 Intake Total 480 394 260 Output Total 1950 450 Balance -1470 -56 260 Intake: IV Fluids 154 ABX - CLINDAMYCIN 118 Normal Saline 36 Oral 480 240 260 Output: Urine 1950 450 Other: Estimated Void Medium Gen:awake, no distress HEENT: no thrush Heart:RRR no murmur Lungs:CTA BL Abd:+BS NTND soft Skin: no rash, left lower leg warmth, purple non blanching patches with superficial desquamation MSK: no left leg knee or ankle tenderness Laboratory Results - last 24 hr 01/08/19 01/08/19 01/08/19 16:51 16:52 19:51 WBC RBC Hgb Hct MCV MCH MCHC RDW Plt Count MPV Neut % (Auto) Lymph % (Auto) [place] % (Auto) Eos % (Auto) Baso % (Auto) Absolute Neuts (auto) Absolute Lymphs (auto) Absolute Monos (auto) Absolute Eos (auto) Absolute Basos (auto) Absolute Nucleated RBC Nucleated RBC % Sodium Potassium Chloride Carbon Dioxide Anion Gap BUN Creatinine Est GFR ( Amer) Est GFR (Non-Af Amer) BUN/Creatinine Ratio Glucose POC Glucose (mg/dL) 112 H 121 H 134 H Calcium 01/09/19 01/09/19 01/09/19 06:03 06:03 07:30 WBC 17.4 H RBC 3.81 L Hgb 11.5 L Hct 35 L MCV 91 MCH 30 MCHC 33 RDW 14 Plt Count 290 MPV 9.3 Neut % (Auto) 80.0 Lymph % (Auto) 10.4 [place] % (Auto) 7.6 Eos % (Auto) 1.5 Baso % (Auto) 0.5 Absolute Neuts (auto) 13.9 H Absolute Lymphs (auto) 1.8 Absolute Monos (auto) 1.3 H Absolute Eos (auto) 0.3 Absolute Basos (auto) 0.1 Absolute Nucleated RBC 0.0 Nucleated RBC % 0.0 Sodium 137 Potassium 4.7 Chloride 104 Carbon Dioxide 25 Anion Gap 8 BUN 54 H Creatinine 2.58 H Est GFR ( Amer) 30.0 Est GFR (Non-Af Amer) 24.8 BUN/Creatinine Ratio 20.9 H Glucose 89 POC Glucose (mg/dL) 127 H Calcium 8.2 L 01/09/19 11:32 WBC RBC Hgb Hct MCV MCH MCHC RDW Plt Count MPV Neut % (Auto) Lymph % (Auto) [place] % (Auto) Eos % (Auto) Baso % (Auto) Absolute Neuts (auto) Absolute Lymphs (auto) Absolute Monos (auto) Absolute Eos (auto) Absolute Basos (auto) Absolute Nucleated RBC Nucleated RBC % Sodium Potassium Chloride Carbon Dioxide Anion Gap BUN Creatinine Est GFR ( Amer) Est GFR (Non-Af Amer) BUN/Creatinine Ratio Glucose POC Glucose (mg/dL) 130 H Calcium Assessment: 1. left leg cellulitis with skin desquamation secondary to edema and cellulitis 2. leukocytosis due to #1 3. diabetes with neuropathy 4. hx left foot osteomyelitis Plan: 1. doxycycline 100 mg po twice daily for 10 more days. Wound care recs pending. Discussed with Dr Andrade 35 minutes floor time >50% face to face in counseling regarding short term plans for abx, wound care, return to [place].
--- NOTE | 2019-01-09 17:01 | PN ---
Subjective Date of Service: 01/09/19 Interval History: Mr. Quinn is a 68 yo male with PMH significant for afib, CKD, CAD, HTN, HLD , hypothyroidism, and DM2 who presented to the emergency room with complaints of cough and shortness of breath. He was found to have left LE cellulitis, and an open wound to the back of his left calf at the time of admission. NS staff applied vaseline gauze to the left LE on Tuesday. In the setting of significant weeping of the leg this caused the skin to be macerated. The leg has been open to air since Tuesday afternoon. Patient seen and examined at bedside. Family History: Unchanged from Admission Social History: Unchanged from Admission Past Medical History: Unchanged from Admission Objective Active Medications: Acetaminophen (Tylenol Tab*) 650 mg PO Q4H PRN Reason: FEVER/PAIN Atorvastatin Calcium (Lipitor*) 10 mg PO DAILY [facility] Carvedilol (Coreg Tab*) 3.125 mg PO BID [facility] Dabigatran (Pradaxa Cap(Nf)) 75 mg PO BID [facility] Dextrose (D50w Syringe 50 Ml*) 12.5 gm IV PUSH .FOR FS < 60 - SS PRN Reason: FS < 60 Doxycycline Hyclate (Vibramycin Cap(*)) 100 mg PO BID [facility] Furosemide (Lasix Iv*) 40 mg IV DAILY [facility] Hydralazine HCl (Apresoline Tab*) 50 mg PO BID [facility] Insulin Glargine (Lantus(*)) 40 units SUBCUT Q24H [facility] Insulin Glargine (Lantus(*)) 7 units SUBCUT DAILY [facility] Insulin Human Lispro (Humalog*) 0 units SUBCUT AC [facility]; Protocol Insulin Human Lispro (Humalog*) 0 units SUBCUT AC [facility]; Protocol Levothyroxine Sodium (Synthroid Tab*) 75 mcg PO DAILY@0600 [facility] Magnesium Hydroxide (Milk Of Magnesia Liq*) 30 ml PO BID@0600,1800 [facility] Ondansetron HCl (Zofran Inj*) 4 mg IV Q4H PRN Reason: NAUSEA/VOMITING Oxycodone HCl (Roxycodone Tab*) 10 mg PO Q8H PRN Reason: DISCOMFORT Polyethylene Glycol/Electrolytes (Miralax*) 17 gm PO DAILY [facility] Sodium Biphosphate/Sodium Phosphate (Fleet Enema*) 1 bottle [place] DAILY PRN Reason : CONSTIPATION Vital Signs 01/09/19 01/09/19 16:07 16:46 Temperature 98.3 F Pulse Rate 81 Respiratory 18 18 Rate Blood Pressure 134/60 (mmHg) O2 Sat by Pulse 97 Oximetry Oxygen Devices in Use Now: None Appearance: NAD, sitting up in a chair Ears/Nose/Mouth/Throat: Mucous Membranes Moist Respiratory: Symmetrical Chest Expansion and Respiratory Effort Extremities: - - Bilateral LE edema Skin: - - See skin note below Neurological: Alert and Oriented x 3 Nutrition: Taking PO's Result Diagrams: 01/11/19 06:04 01/11/19 06:04 Skin Deviation Note - Skin Deviation Findings Photographs of left lower leg from 01/05/19 Left medial Lower leg - There is a large area of macerated skin that is peeling. There is slight erythema to the surrounding skin and the leg is warm to touch. There is a large amount of serous drainage from the leg. Left anterior lower leg - There is erythema and macerated skin. There is serous drainage from the leg. Photographs from 01/09/19 Wound consult followup Left Medial and posterior lower leg - There is yellow crusting to the lower leg. The surrounding skin has erythema. There is serous drainage from the leg. Left lateral and posterior lower leg - There is a large area of macerated skin and skin peeling. The large area of open skin on the posterior leg measures 13 cm x 11.5 cm x 0.1 cm. The wound base is red granulation tissue. The surrounding skin is macerated and peeling. There is a large amount of serous drainage, but the amount of drainage has started to decrease. There are 2 open areas to the upper lateral aspect of the left below the knee, with the larger area measuring 5.5 cm x 3.5 cm x 0.1 cm. The wound base is red granulation tissue. Assessment/Plan: Mr. Quinn is a 68 yo male with PMH significant for afib, CKD, CAD, HTN, HLD , hypothyroidism, and DM2 who presented to the emergency room with complaints of cough and shortness of breath. He was found to have left LE cellulitis, and an open wound to the back of his left calf. The left lower leg has become macerated with peeling skin over the course of the week. 1. Left LE with multiple superficial wound. Patient states that the initial open area was secondary to trauma to the leg, suspect this is a skin tear. The leg has become macerated after a Vaseline gauze dressing was placed to the leg on Tuesday. Recommend leaving the left leg open to air, do not apply a dressing. 2. Left LE cellulitis. Continue to treat cellulitis according to primary team/ ID. 3. Diabetes Mellitus, type 2. HgA1C 10. Maintain good glycemic control to allow for wound healing. 4. Diet. Consistent Carbohydrate. 5. Code Status. Full Code status. 6. Disposition. Inpatient, disposition per primary medicine team. TIME SPENT: Time for this wound consultation was 20 minutes and 10 minutes was spent with the patient discussing past medical history; assessing, measuring and photographing the wound. Wound Problem/Plan Is Patient a Wound Clinic Patient: No Attending: Wendy Kimble
[2019-01-09] MEDS: DOXYcycline CAP(*) 100 MG PO SCH (21:39)
[2019-01-09] MEDS: Acetaminophen TAB* 325 MG PO PRN (21:44)
[2019-01-10] MEDS: Levothyroxine TAB* 75 MCG TAB PO SCH (06:55)
[2019-01-10] MEDS: Magnesium Hydroxide LIQ* 30 ML UDC PO SCH ×2 (06:55→18:57)
[2019-01-10] MEDS: oxyCODONE TAB* 5 MG TAB PO PRN ×2 (06:56→18:10)
[2019-01-10 07:01] LABS: BUN/Creatinine Ratio 19.6 (8-20); Calcium 7.9 mg/dL (8.6-10.3); EGFR African American 29.8 (>60); EGFR Non-African American 24.6 (>60); Potassium 4.6 mmol/L (3.5-5.0)
--- NOTE | 2019-01-10 08:32 | PN ---
Progress Note - Progress Note Date of Service: 01/10/19 SOAP: Subjective: CC: Left leg cellulitis HPI: Mr. Quinn is a 68 yo male with PMH significant for DM2, morbid obesity, CKD , CAD, HTN, HLD, Afib, and hypothyroidism. Denies fever, chills, shortness of breath, nausea. Continues to have bilateral LE edema and weeping from the LEs, but feels like this is improving. Has not moved his bowels in 6 days. Objective: Vital Signs - 8 hr 01/10/19 01/10/19 04:03 06:56 Temperature 97.9 F Pulse Rate 80 Respiratory 18 16 Rate Blood Pressure 127/60 (mmHg) O2 Sat by Pulse 98 Oximetry Physical Exam: General: NAD, sitting up in a chair Neurological: Alert and Oriented x4 HEENT: No thrush, moist MM Cardiovascular: Heart rate regular Respiratory: Lung sounds clear, diminished Abdominal: Bowel sounds hypoactive; ABD soft, non tender and distended Musculoskeletal: No tenderness or crepitus of the left knee Skin: Right ankle with dry and flaky skin. Left leg with dark erythema and multiple open areas and skin peeling. There is some crusting to the left ankle. Serous drainage noted from the left leg Laboratory Results - last 24 hr 01/10/19 05:54 Sodium 134 L Potassium 4.6 Chloride 100 L Carbon Dioxide 27 Anion Gap 7 BUN 51 H Creatinine 2.60 H Est GFR ( Amer) 29.8 Est GFR (Non-Af Amer) 24.6 BUN/Creatinine Ratio 19.6 Glucose 207 H POC Glucose (mg/dL) Calcium 7.9 L Microbiology 01/07/19 11:30 Gram Stain - Final Leg Left Wound Culture - Final No Growth Day 2 01/04/19 07:00 Gram Stain - Final Sputum Sputum Culture - Final MRSA Capnocytophaga Species Normal Paula 01/01/19 21:00 Aerobic Blood Culture - Final Blood Venous No Growth Day 5 Anaerobic Blood Culture - Final No Growth Day 5 01/01/19 21:07 Aerobic Blood Culture - Final Blood Venous No Growth Day 5 Anaerobic Blood Culture - Final No Growth Day 5 Assessment: 1. Left leg cellulitis with skin desquamation secondary to edema and cellulitis. Afebrile, last fever was 101.3 on 01/08/19, continues to have leukocytosis. Blood cultures with no growth on day 5. Wound culture with no growth to date. 2. Leukocytosis due to #1. WBC is slowly trending down. 3. DM2 with peripheral neuropathy. 4. Morbid obesity. BMI 32.9 5. Constipation. Has not moved bowels in 6 days, reports passing occasional flatus when he is ambulating. Plan: Continue doxycycline 100 mg PO twice daily for 9 more days. Recommend keeping the leg open to air at this time, once weeping has decreased can consider applying an IMKEL wrap.
[2019-01-10] MEDS: Polyethylene Glycol 3350* 17 GM PACKET PO SCH ×2 (09:06→21:43)
[2019-01-10] MEDS: hydrALAZINE TAB* 25 MG PO SCH ×2 (09:09→21:42)
[2019-01-10] MEDS: Atorvastatin* 10 MG TAB PO SCH (09:09)
[2019-01-10] MEDS: Carvedilol TAB* 3.125 MG PO SCH ×2 (09:09→21:42)
[2019-01-10] MEDS: DOXYcycline CAP(*) 100 MG PO SCH ×2 (09:09→21:42)
[2019-01-10] MEDS: Furosemide IV* 10 MG/ML VIAL (40 MG) IV SCH (09:11)
[2019-01-10] MEDS: Insulin GLARGINE(*) 1 UNITS UNIT SUBCUT SCH ×2 (10:02→22:19)
[2019-01-10] MEDS: DABIGATRAN 75 MG PO SCH ×2 (10:02→21:46)
--- NOTE | 2019-01-10 10:20 | PN ---
Subjective Date of Service: 01/10/19 Interval History: HD # 9 on 01/10 68M h/o IDDM, CKD (baseline cr 2.3 per patient), CAD s/p prior UT, afib lives in [place] admitted with skin and soft tissue infection and acute CHF exacerbation (EF 40-45% on admission, no baseline) Overnight no acute events, VSS, afebrile Labs; persistent leukocytosis, Cr 2.4-> 2.6 This morning seen after breakfast, he feels he is having less pain for the first time today, he feels swelling is going down and Lasix has helped. We discuss bump in Cr, he reports baseline 2.3/2.4. No BM x 3 days, we started BR yesterday. No other GI MSK or cardiac complaints. Discharge planning discussed briefly, we discuss may be here until Tuesday/Tuesday given slow progress and only minimally weight bearing, did order PT today, he is booking a flight for next back to [place] and will stay with his daughter in [place] until then. Family History: Unchanged from Admission Social History: Unchanged from Admission Past Medical History: Unchanged from Admission Objective Active Medications: Acetaminophen (Tylenol Tab*) 650 mg PO Q4H PRN PRN Reason: FEVER/PAIN Last Admin: 01/09/19 21:44 Dose: 650 mg Atorvastatin Calcium (Lipitor*) 10 mg PO DAILY [facility] Last Admin: 01/10/19 09:09 Dose: 10 mg Carvedilol (Coreg Tab*) 3.125 mg PO BID [facility] Last Admin: 01/10/19 09:09 Dose: 3.125 mg Dabigatran (Pradaxa Cap(Nf)) 75 mg PO BID [facility] Last Admin: 01/10/19 10:02 Dose: 75 mg Dextrose (D50w Syringe 50 Ml*) 12.5 gm IV PUSH .FOR FS < 60 - SS PRN PRN Reason: FS < 60 Doxycycline Hyclate (Vibramycin Cap(*)) 100 mg PO BID [facility] Last Admin: 01/10/19 09:09 Dose: 100 mg Furosemide (Lasix Iv*) 40 mg IV DAILY [facility] Last Admin: 01/10/19 09:11 Dose: 40 mg Hydralazine HCl (Apresoline Tab*) 50 mg PO BID [facility] Last Admin: 01/10/19 09:09 Dose: 50 mg Insulin Glargine (Lantus(*)) 40 units SUBCUT Q24H [facility] Last Admin: 01/09/19 21:40 Dose: 40 units Insulin Glargine (Lantus(*)) 7 units SUBCUT DAILY [facility] Last Admin: 01/10/19 10:02 Dose: 7 unit Insulin Human Lispro (Humalog*) 0 units SUBCUT [facility]; Protocol Last Admin: 01/09/19 17:53 Dose: 2 unit Insulin Human Lispro (Humalog*) 0 units SUBCUT [facility]; Protocol Last Admin: 01/09/19 17:53 Dose: 2 units Lactulose (Lactulose*) 45 ml PO TID PRN PRN Reason: CONSTIPATION Stop: 01/11/19 08:59 Last Admin: 01/10/19 09:10 Dose: 45 ml Levothyroxine Sodium (Synthroid Tab*) 75 mcg PO DAILY@0600 [facility] Last Admin: 01/10/19 06:55 Dose: 75 mcg Magnesium Hydroxide (Milk Of Magnesia Liq*) 30 ml PO BID@0600,1800 [facility] Last Admin: 01/10/19 06:55 Dose: 30 ml Ondansetron HCl (Zofran Inj*) 4 mg IV Q4H PRN PRN Reason: NAUSEA/VOMITING Last Admin: 01/02/19 12:51 Dose: 4 mg Oxycodone HCl (Roxycodone Tab*) 10 mg PO Q8H PRN PRN Reason: DISCOMFORT Last Admin: 01/10/19 06:56 Dose: 10 mg Polyethylene Glycol/Electrolytes (Miralax*) 17 gm PO DAILY [facility] Last Admin: 01/10/19 09:06 Dose: 17 gm Sodium Biphosphate/Sodium Phosphate (Fleet Enema*) 1 bottle PA DAILY PRN PRN Reason: CONSTIPATION Last Admin: 01/05/19 06:24 Dose: 1 bottle Vital Signs - 8 hr 01/10/19 01/10/19 01/10/19 04:03 06:56 08:01 Temperature 97.9 F 98.2 F Pulse Rate 80 71 Respiratory 18 16 16 Rate Blood Pressure 127/60 132/56 (mmHg) O2 Sat by Pulse 98 99 Oximetry Oxygen Devices in Use Now: None Appearance: Pleasant man in NAD Eyes: No Scleral Icterus Ears/Nose/Mouth/Throat: NL Teeth, Lips, Gums, Clear Oropharnyx Neck: NL Appearance and Movements; NL JVP Respiratory: Symmetrical Chest Expansion and Respiratory Effort, - - Mild bibasilar crackles that clear with deep breaths Cardiovascular: NL Sounds; No Murmurs; No JVD, RRR Abdominal: NL Sounds; No Tenderness; No Distention, No Hepatosplenomegaly Lymphatic: No Cervical Adenopathy Extremities: - - L lower ext with mildly receeding erythema below knee, still warm deep erythema with diffuse desquamation and crusting worse on interior aspect above ankle. Skin: - - See ext. Neurological: Alert and Oriented x 3 Result Diagrams: 01/09/19 06:03 01/10/19 05:54 Microbiology and Other Data: Microbiology 01/01/19 21:07 Aerobic Blood Culture - Preliminary Blood Venous No Growth Day 1 Anaerobic Blood Culture - Preliminary No Growth Day 1 01/01/19 21:00 Aerobic Blood Culture - Preliminary Blood Venous No Growth Day 1 Anaerobic Blood Culture - Preliminary No Growth Day 1 Assess/Plan/Problems-Billing Assessment: 68M h/o DM2, CKD (baseline cr 2.3 per patient), CAD s/p prior [place], Afib lives in [place] admitted with skin and soft tissue infection and acute CHF exacerbation (EF 40-45% on admission, no baseline), hospital stay complicated by slow improvement of LLE cellulitis. - Patient Problems (1) Cellulitis Current Visit: Yes Status: Acute Code(s): L03.90 - CELLULITIS, UNSPECIFIED SNOMED Code(s): 672695148 Comment: - LLE, skin breakdown suspected in setting of increased LE edema from CHF and poor wound healing in the setting of diabetes - On clindamycin initially per ID, now oral Doxy Day 04/30 on 01/09 - Will need to be able to ambulate short distances prior to d/c - Wound Cx NGTD, Sputum shows MRSA->is on percautions for this only, ID thinks likely contaminated. - Wound care consult - Oxy for pain, start bowel regimen (2) Pneumonia Current Visit: Yes Status: Acute Code(s): J18.9 - PNEUMONIA, UNSPECIFIED ORGANISM SNOMED Code(s): 186357431 Comment: - Cough, chills, SOB, leukocytosis on admission, now fully tx (3) Acute exacerbation of CHF (congestive heart failure) Current Visit: Yes Status: Acute Code(s): I50.9 - HEART FAILURE, UNSPECIFIED SNOMED Code(s): 783658491 Comment: - Acute systolic based on echo here - strict I/O, daily weights, fluid restrict - Diuresis held initially, now on 40mg IV daily. Mild increase in Cr, will hold on 01/11, resume PO home dose as able - V/Q low risk - suspect decompensation in setting of PNA and/or cellulitis (4) Atrial fibrillation Current Visit: Yes Status: Acute Code(s): I48.91 - UNSPECIFIED ATRIAL FIBRILLATION SNOMED Code(s): 17599588 Comment: - CHADS VASC >3 Pradaxa for afib. - No recommended renal dosing for current CrCl - Rate controlled on home Carvedilol (5) CKD (chronic kidney disease) Current Visit: Yes Status: Acute Code(s): N18.9 - CHRONIC KIDNEY DISEASE, UNSPECIFIED SNOMED Code(s): 274084855 Comment: - Stage 4 CKD - Complicated by NABIL in setting of sepsis from above - Follows with a correctional security officer in [place] - NABIL improving, restart lasix on 01/07-01/10, will hold 01/11, home dose is oral 20mg Counseled on importance of weight loss and improved diabetic control (6) Diabetes Current Visit: Yes Status: Acute Code(s): E11.9 - TYPE 2 DIABETES MELLITUS WITHOUT COMPLICATIONS SNOMED Code(s): 00732988 Comment: - HbA1c 10% - SSI Lispro - Added additional 7 units lantus in AM, 40 U in PM (7) Elevated troponin Current Visit: Yes Status: Acute Code(s): R74.8 - ABNORMAL LEVELS OF OTHER SERUM ENZYMES SNOMED Code(s): 041524541 Comment: - When admitted, thought to be Type 2 Ischemia, 2/2 to Demand, trended down (8) DVT prophylaxis Current Visit: Yes Status: Acute Code(s): Z29.9 - ENCOUNTER FOR PROPHYLACTIC MEASURES, UNSPECIFIED SNOMED Code(s): 859069856 Comment: - pradaxa (9) DNR (do not resuscitate) Current Visit: Yes Status: Acute Status and Disposition: Inpatient for now, patient will need to be able to ambulate on his own and thus far too painful to ambulate on L leg, we discuss given today first time we pain control may need further slow healing and wound care through possibly the , anticpate d/c by Tuesday at latest Tuesday, possibly earlier depending on pain control
[2019-01-10] MEDS: Insulin LISPRO* 1 UNITS UNIT SUBCUT SCH ×6 (11:53→18:53)
--- NOTE | 2019-01-10 17:44 | PN ---
Hospitalist Progress Note Date of Service: 01/10/19 Off Service Note: 68M h/o IDDM, CKD (baseline cr 2.3 per patient), CAD s/p prior [place], afib lives in [place] admitted with skin and soft tissue infection and acute CHF exacerbation (EF 40-45% on admission, no baseline) Cellulitis: Severe appearing, slow to heal, today finally started to look better , lasix helped with swelling, though bumped Cr -On PO doxy -Needs to be able to ambulate on it CKD: On Home lasix 20mg, did do IV lasix to help with edema in RLE, mild bump to cr, decide when to resume home dose lasix Dispo: Probably will go on Tuesday/Tuesday, he has a daughter in [place] who will pick him up, he plans to book a flight to go back to [place] January 19.
[2019-01-10] MEDS: Acetaminophen TAB* 325 MG PO PRN ×2 (18:11→22:19)
[2019-01-11] MEDS: oxyCODONE TAB* 5 MG TAB PO PRN ×3 (03:54→17:47)
[2019-01-11] MEDS: Levothyroxine TAB* 75 MCG TAB PO SCH (06:04)
[2019-01-11] MEDS: Magnesium Hydroxide LIQ* 30 ML UDC PO SCH ×2 (06:04→17:27)
[2019-01-11 06:34] LABS: ABS Basophils 0.1 10^3/ul (0-0.2); ABS Eosinophils 0.2 10^3/ul (0-0.6); ABS Lymphocytes 1.5 10^3/ul (1.0-4.8); ABS Neutrophils 11.4 10^3/ul (1.5-7.7); Eosinophil % 1.1 %; Hematocrit 34 % (42-52); Hemoglobin 11.3 g/dL (14.0-18.0); Mean Corpuscular HGB Conc 33 g/dL (31-36); Mean Corpuscular Hemoglobin 30 pg (27-31); Mean Corpuscular Volume 91 fL (80-94); Mean Platelet Volume 9.1 fL (7.4-10.4); Platelet Count 314 10^3/uL (150-450); Red Blood Count 3.73 10^6 /uL (4.18-5.48); Red Cell Distribution Width 14 % (10.5-15); White Blood Count 14.1 10^3/uL (3.5-10.8)
[2019-01-11 06:53] LABS: BUN/Creatinine Ratio 15.9 (8-20); Calcium 8.3 mg/dL (8.6-10.3); EGFR African American 28.5 (>60); EGFR Non-African American 23.5 (>60); Potassium 4.8 mmol/L (3.5-5.0)
[2019-01-11] MEDS: Insulin LISPRO* 1 UNITS UNIT SUBCUT SCH ×6 (07:46→17:27)
[2019-01-11] MEDS: Polyethylene Glycol 3350* 17 GM PACKET PO SCH ×2 (09:04→22:24)
[2019-01-11] MEDS: hydrALAZINE TAB* 25 MG PO SCH ×2 (09:06→22:23)
[2019-01-11] MEDS: Insulin GLARGINE(*) 1 UNITS UNIT SUBCUT SCH ×2 (09:07→22:22)
[2019-01-11] MEDS: DABIGATRAN 75 MG PO SCH ×2 (09:07→22:23)
[2019-01-11] MEDS: Carvedilol TAB* 3.125 MG PO SCH ×2 (09:07→22:23)
[2019-01-11] MEDS: DOXYcycline CAP(*) 100 MG PO SCH ×2 (09:07→22:23)
[2019-01-11] MEDS: Atorvastatin* 10 MG TAB PO SCH (09:07)
--- NOTE | 2019-01-11 09:51 | PN ---
Progress Note - Progress Note Date of Service: 01/11/19 SOAP: Subjective: CC: left leg cellulitis HPI: 68 year old diabetic man with left leg cellulitis; pain better, walking more and with less pain. No fever, rash, or diarrhea. Objective: Vital Signs Temp 36.8 C 01/11/19 07:45 Pulse 68 01/11/19 07:45 Resp 14 01/11/19 07:45 BP 140/61 01/11/19 07:45 Pulse Ox 99 01/11/19 07:45 Intake & Output 01/10/19 01/11/19 01/11/19 18:59 06:59 18:59 Intake Total 540 0 Output Total 600 Balance -60 0 Weight 242 lb 12.8 oz 245 lb 6.4 oz Intake: Oral 540 0 Output: Urine 600 Other: # Bowel Movements 1 1 Estimated Stool Amount Medium Medium Gen:awake, no distress HEENT: no thrush Heart:RRR no murmur Lungs:CTA BL Abd:+BS NTND soft Skin: left lower leg slight warmth, fading purple non blanching patches with superficial desquamation and eschar MSK: no left leg knee or ankle tenderness Assessment: 1. left leg cellulitis with skin desquamation secondary to edema and cellulitis 2. leukocytosis due to #1, improvuing 3. diabetes with neuropathy 4. hx left foot osteomyelitis 5. lower extremity edema Plan: 1. doxycycline 100 mg po twice daily for 7 more days. Wound care, jh wrap and elevation as able.
--- NOTE | 2019-01-11 13:54 | PN ---
Subjective Date of Service: 01/11/19 Interval History: HOSPITALIST PROGRESS NOTE Patient seen and examined at bedside. Care reviewed and d/w Brianna Ortiz RN. He c/o left leg pain, but was able to ambulate with PT. Edema is going down, but LLE is still very "weepy". Family History: Unchanged from Admission Social History: Unchanged from Admission Past Medical History: Unchanged from Admission Objective Active Medications: Acetaminophen (Tylenol Tab*) 650 mg PO Q4H PRN PRN Reason: FEVER/PAIN Last Admin: 01/10/19 22:19 Dose: 650 mg Atorvastatin Calcium (Lipitor*) 10 mg PO DAILY [facility] Last Admin: 01/11/19 09:07 Dose: 10 mg Carvedilol (Coreg Tab*) 3.125 mg PO BID [facility] Last Admin: 01/11/19 09:07 Dose: 3.125 mg Dabigatran (Pradaxa Cap(Nf)) 75 mg PO BID [facility] Last Admin: 01/11/19 09:07 Dose: 75 mg Dextrose (D50w Syringe 50 Ml*) 12.5 gm IV PUSH .FOR FS < 60 - SS PRN PRN Reason: FS < 60 Doxycycline Hyclate (Vibramycin Cap(*)) 100 mg PO BID [facility] Last Admin: 01/11/19 09:07 Dose: 100 mg Hydralazine HCl (Apresoline Tab*) 50 mg PO BID [facility] Last Admin: 01/11/19 09:06 Dose: 50 mg Insulin Glargine (Lantus(*)) 40 units SUBCUT Q24H [facility] Last Admin: 01/10/19 22:19 Dose: 40 units Insulin Glargine (Lantus(*)) 7 units SUBCUT DAILY [facility] Last Admin: 01/11/19 09:07 Dose: 7 unit Insulin Human Lispro (Humalog*) 0 units SUBCUT AC [facility]; Protocol Last Admin: 01/11/19 09:03 Dose: Not Given Insulin Human Lispro (Humalog*) 0 units SUBCUT AC [facility]; Protocol Last Admin: 01/11/19 12:58 Dose: Not Given Levothyroxine Sodium (Synthroid Tab*) 75 mcg PO DAILY@0600 [facility] Last Admin: 01/11/19 06:04 Dose: 75 mcg Magnesium Hydroxide (Milk Of Magnesia Liq*) 30 ml PO BID@0600,1800 [facility] Last Admin: 01/11/19 06:04 Dose: Not Given Ondansetron HCl (Zofran Inj*) 4 mg IV Q4H PRN PRN Reason: NAUSEA/VOMITING Last Admin: 01/02/19 12:51 Dose: 4 mg Oxycodone HCl (Roxycodone Tab*) 10 mg PO Q6H PRN PRN Reason: PAIN Last Admin: 01/11/19 11:38 Dose: 10 mg Polyethylene Glycol/Electrolytes (Miralax*) 17 gm PO 0800,2100 [facility] Last Admin: 01/11/19 09:04 Dose: Not Given Sodium Biphosphate/Sodium Phosphate (Fleet Enema*) 1 bottle [place] DAILY PRN PRN Reason: CONSTIPATION Last Admin: 01/05/19 06:24 Dose: 1 bottle Vital Signs - 8 hr 01/11/19 01/11/19 01/11/19 06:05 07:45 08:00 Temperature 98.2 F Pulse Rate 68 Respiratory 16 14 16 Rate Blood Pressure 140/61 (mmHg) O2 Sat by Pulse 99 Oximetry 01/11/19 01/11/19 11:31 11:38 Temperature 98.1 F Pulse Rate 71 Respiratory 16 18 Rate Blood Pressure 123/43 (mmHg) O2 Sat by Pulse 99 Oximetry Oxygen Devices in Use Now: None Appearance: Elderly gentleman sitting up in a recliner in NAD Eyes: No Scleral Icterus Ears/Nose/Mouth/Throat: Mucous Membranes Moist Neck: Trachea Midline Respiratory: Symmetrical Chest Expansion and Respiratory Effort, Clear to Auscultation Cardiovascular: RRR - Normal S1 and S2 Abdominal: NL Sounds; No Tenderness; No Distention Extremities: - - Left LE edema with blisters and crusts. S/p left hallux amputation. Chronic skin changes on bilateral LE Neurological: Alert and Oriented x 3, NL Muscle Strength and Tone Result Diagrams: 01/11/19 06:04 01/11/19 06:04 Assess/Plan/Problems-Billing Assessment: Mr Quinn is a 68yo M wi PMH of h/o DM2, CKD (baseline cr 2.3 per patient) , CAD s/p prior [place], Afib, visiting from [place], who presented to ED with c/o dyspnea and cough, admitted with skin and soft tissue infection and acute CHF exacerbation (EF 40-45% on admission, no baseline). - Patient Problems (1) Cellulitis Comment: - LLE skin breakdown suspected in setting of increased LE edema from CHF and poor wound healing in the setting of diabetes. - ID input appreciated - recommended doxicycline 100mg BID for 7 more days. - Continue PT - will increase oxycodone frequency for better pain control and increase mobility. - Wound culture no growth so far. (Sputum shows MRSA - is on precautions for this only). (2) Acute exacerbation of CHF (congestive heart failure) Comment: - Acute systolic CHF. - Echo showed EF 45-50%. - Furosemide was held today - will resume in AM if renal function remains stable. (3) Atrial fibrillation Comment: - Continue Carvedilol and Dabigatran. (4) CKD (chronic kidney disease) Comment: - Stage 4 CKD - Complicated by NABIL in setting of sepsis secondary to cellulitis. - NABIL was improving and Furosemide resumed 01/07-01/10 - may resume tomorrow if renal function remains stable. (5) Diabetes Comment: - Chronically uncontrolled as evidenced by HbA1c 10% - Fairly controlled in the hospital - highest 183 over the last 24h. - Change Lantus to 45 units and continue Lispro SS. (6) DVT prophylaxis Comment: - Pradaxa. (7) DNR (do not resuscitate) Status and Disposition: Inpatient. Increase pain medication to encourage mobilization. Plan to d/c home with his daughter (lives in [place]) over the weekend.
[2019-01-11] MEDS ORDERED: Insulin GLARGINE(*) 1 UNITS UNIT SUBCUT SCH (21:00)
[2019-01-11] MEDS: Acetaminophen TAB* 325 MG PO PRN (22:23)
[2019-01-12] MEDS: oxyCODONE TAB* 5 MG TAB PO PRN ×4 (00:09→18:25)
[2019-01-12] MEDS: Levothyroxine TAB* 75 MCG TAB PO SCH (06:10)
[2019-01-12] MEDS: Magnesium Hydroxide LIQ* 30 ML UDC PO SCH ×2 (06:10→17:46)
[2019-01-12] MEDS: Polyethylene Glycol 3350* 17 GM PACKET PO SCH ×2 (07:25→20:48)
[2019-01-12] MEDS: hydrALAZINE TAB* 25 MG PO SCH ×2 (08:12→21:03)
[2019-01-12] MEDS: Carvedilol TAB* 3.125 MG PO SCH ×2 (08:12→21:03)
[2019-01-12] MEDS: DOXYcycline CAP(*) 100 MG PO SCH ×2 (08:13→21:03)
[2019-01-12] MEDS: DABIGATRAN 75 MG PO SCH ×2 (08:13→21:03)
[2019-01-12] MEDS: Atorvastatin* 10 MG TAB PO SCH (08:13)
[2019-01-12] MEDS: Insulin LISPRO* 1 UNITS UNIT SUBCUT SCH ×6 (08:17→18:14)
--- NOTE | 2019-01-12 10:46 | PN ---
Progress Note - Progress Note Date of Service: 01/12/19 SOAP: Subjective: CC: Left leg cellulitis HPI: Mr. Quinn is a 68 yo male with PMH significant for DM2, morbid obesity, CKD , CAD, HTN, HLD, Afib, and hypothyroidism. Denies fever, chills, shortness of breath, nausea, diarrhea, or ABD pain. Continues to have bilateral LE edema and weeping from the LEs, but feels like this is slowly improving. Moved his bowels this morning, but feels bloated after eating a small amount of food. Continues to have pain in the left leg, this is improved and tolerable with pain medication. Objective: Vital Signs - 8 hr 01/12/19 01/12/19 01/12/19 05:10 06:10 07:47 Temperature 97.2 F 98.3 F Pulse Rate 74 76 Respiratory 18 16 14 Rate Blood Pressure 134/57 131/51 (mmHg) O2 Sat by Pulse 99 97 Oximetry Physical Exam: General: NAD, sitting up in a chair Neurological: Alert and Oriented x4 HEENT: Moist MM, no thrush Cardiovascular: Heart rate regular. Right LE with 1+ edema and left LE with 2+ pitting edema Respiratory: Lung sounds clear Abdominal: Bowel sounds present; ABD soft, large and non tender Skin: Left lower leg slight warmth, fading purple non blanching patches with large amount of superficial skin peeling Musculoskeletal: No left knee or ankle tenderness, able to move the left ankle and knee Laboratory Last Values WBC 14.1 10^3/uL (3.5-10.8) H 01/11/19 06:04 RBC 3.73 10^6 /uL (4.18-5.48) L 01/11/19 06:04 Hgb 11.3 g/dL (14.0-18.0) L 01/11/19 06:04 Hct 34 % (42-52) L 01/11/19 06:04 MCV 91 fL (80-94) 01/11/19 06:04 MCH 30 pg (27-31) 01/11/19 06:04 MCHC 33 g/dL (31-36) 01/11/19 06:04 RDW 14 % (10.5-15) 01/11/19 06:04 Plt Count 314 10^3/uL (150-450) 01/11/19 06:04 MPV 9.1 fL (7.4-10.4) 01/11/19 06:04 Neut % (Auto) 80.7 % 01/11/19 06:04 Lymph % (Auto) 11.0 % 01/11/19 06:04 Mcminn % (Auto) 6.7 % 01/11/19 06:04 Eos % (Auto) 1.1 % 01/11/19 06:04 Baso % (Auto) 0.5 % 01/11/19 06:04 Absolute Neuts (auto) 11.4 10^3/ul (1.5-7.7) H 01/11/19 06:04 Absolute Lymphs (auto) 1.5 10^3/ul (1.0-4.8) 01/11/19 06:04 Absolute Monos (auto) 1.0 10^3/ul (0-0.8) H 01/11/19 06:04 Absolute Eos (auto) 0.2 10^3/ul (0-0.6) 01/11/19 06:04 Absolute Basos (auto) 0.1 10^3/ul (0-0.2) 01/11/19 06:04 Absolute Nucleated RBC 0.0 10^3/ul 01/11/19 06:04 Immature Gran % 8.0 % (0-9) 01/04/19 05:39 Neutrophils % 82.0 % 01/04/19 05:39 Band Neutrophils % 8.0 % (0-8) 01/04/19 05:39 Lymphocytes % 5.0 % 01/04/19 05:39 Monocytes % 5.0 % 01/04/19 05:39 Nucleated RBC % 0.0 01/11/19 06:04 Normal RBC Morphology Not Reportable 01/04/19 05:39 Polychromasia 1+ 01/04/19 05:39 APTT 37.0 seconds (26.0-36.3) H 01/02/19 11:55 VBG pH 7.40 (7.32-7.43) 01/01/19 21:00 VBG pCO2 35 mmHg (41-51) L 01/01/19 21:00 VBG pO2 45.0 mmHg (35-45) 01/01/19 21:00 VBG HCO3 22.4 mmol/L (24-28) L 01/01/19 21:00 VBG O2 Saturation 78.3 % (70-80) 01/01/19 21:00 VBG Base Excess -2.5 mmol/L (0.0-4.0) L 01/01/19 21:00 Sodium 135 mmol/L (135-145) 01/11/19 06:04 Potassium 4.8 mmol/L (3.5-5.0) 01/11/19 06:04 Chloride 100 mmol/L (101-111) L 01/11/19 06:04 Carbon Dioxide 27 mmol/L (22-32) 01/11/19 06:04 Anion Gap 8 mmol/L (2-11) 01/11/19 06:04 BUN 43 mg/dL (6-24) H 01/11/19 06:04 Creatinine 2.70 mg/dL (0.67-1.17) H 01/11/19 06:04 Est GFR ( Amer) 28.5 (>60) 01/11/19 06:04 Est GFR (Non-Af Amer) 23.5 (>60) 01/11/19 06:04 BUN/Creatinine Ratio 15.9 (8-20) 01/11/19 06:04 Glucose 81 mg/dL (70-100) 01/11/19 06:04 POC Glucose (mg/dL) 108 mg/dL (70-100) H 01/12/19 08:12 Glucose Meter Confirm 392 mg/dL (70-100) H 01/02/19 04:13 Hemoglobin A1c 10.0 % (4.0-5.6) H 01/01/19 21:07 Lactic Acid 1.2 mmol/L (0.5-2.0) 01/02/19 00:16 Calcium 8.3 mg/dL (8.6-10.3) L 01/11/19 06:04 Magnesium 2.2 mg/dL (1.9-2.7) 01/03/19 05:49 Troponin I 1.20 ng/mL (<0.04) H* 01/02/19 05:56 C-Reactive Protein 100.55 mg/L (<8.01) H 01/08/19 06:35 Triglycerides 122 mg/dL 01/02/19 04:13 Cholesterol 87 mg/dL 01/02/19 04:13 LDL Cholesterol 39 mg/dL 01/02/19 04:13 HDL Cholesterol 23.8 mg/dL 01/02/19 04:13 TSH 0.57 mcIU/mL (0.34-5.60) 01/01/19 21:07 Random Vancomycin 15.4 mcg/mL 01/06/19 05:40 Microbiology 01/07/19 11:30 Gram Stain - Final Leg Left Wound Culture - Final No Growth Day 2 01/04/19 07:00 Gram Stain - Final Sputum Sputum Culture - Final MRSA Capnocytophaga Species Normal Paula 01/01/19 21:00 Aerobic Blood Culture - Final Blood Venous No Growth Day 5 Anaerobic Blood Culture - Final No Growth Day 5 01/01/19 21:07 Aerobic Blood Culture - Final Blood Venous No Growth Day 5 Anaerobic Blood Culture - Final No Growth Day 5 Assessment: 1. Left leg cellulitis with skin desquamation secondary to edema and cellulitis. Afebrile and leukocytosis improving. Blood cultures with no growth on day 5. Left LE wound culture with no growth on day 2. 2. Leukocytosis due to #1, improving 3. DM2 with neuropathy 4. Lower extremity edema, secondary to acute CHF exacerbation and left LE cellulitis, Plan: Continue Doxycycline 100 mg po twice daily for 6 more days. Wound care: Wash legs with soap and water. Continue to leave LE open to air as able. When a dressing is needed: Apply telfa to the open areas, ABD pads, rolled gauze, and jh wrap. Change dressing as needed for drainage, do not leave moist/wet dressing on. Elevate legs as able.
[2019-01-12 11:27] LABS: BUN/Creatinine Ratio 14.2 (8-20); Calcium 8.4 mg/dL (8.6-10.3); EGFR African American 28.9 (>60); EGFR Non-African American 23.9 (>60); Potassium 4.9 mmol/L (3.5-5.0)
[2019-01-12] MEDS ORDERED: Furosemide IV* 10 MG/ML VIAL (40 MG) IV SLOW PU ONE (11:30)
--- NOTE | 2019-01-12 20:41 | PN ---
Subjective Date of Service: 01/12/19 Interval History: HOSPITALIST PROGRESS NOTE Patient seen and examined at bedside. Care reviewed and d/w Brianna Ortiz RN. He is in good spirits today. Took a shower, shaved, and overall feels improved. Pain is better controlled with increased oxycodone frequency. Able to ambulate more. Family History: Unchanged from Admission Social History: Unchanged from Admission Past Medical History: Unchanged from Admission Objective Active Medications: Acetaminophen (Tylenol Tab*) 650 mg PO Q4H PRN PRN Reason: FEVER/PAIN Last Admin: 01/11/19 22:23 Dose: 650 mg Atorvastatin Calcium (Lipitor*) 10 mg PO DAILY [facility] Last Admin: 01/12/19 08:13 Dose: 10 mg Carvedilol (Coreg Tab*) 3.125 mg PO BID [facility] Last Admin: 01/12/19 08:12 Dose: 3.125 mg Dabigatran (Pradaxa Cap(Nf)) 75 mg PO BID [facility] Last Admin: 01/12/19 08:13 Dose: 75 mg Dextrose (D50w Syringe 50 Ml*) 12.5 gm IV PUSH .FOR FS < 60 - SS PRN PRN Reason: FS < 60 Doxycycline Hyclate (Vibramycin Cap(*)) 100 mg PO BID [facility] Last Admin: 01/12/19 08:13 Dose: 100 mg Hydralazine HCl (Apresoline Tab*) 50 mg PO BID [facility] Last Admin: 01/12/19 08:12 Dose: 50 mg Insulin Glargine (Lantus(*)) 43 units SUBCUT BEDTIME [facility] Last Admin: 01/11/19 22:22 Dose: 43 units Insulin Human Lispro (Humalog*) 0 units SUBCUT AC [facility]; Protocol Last Admin: 01/12/19 18:14 Dose: Not Given Insulin Human Lispro (Humalog*) 0 units SUBCUT AC [facility]; Protocol Last Admin: 01/12/19 17:45 Dose: Not Given Levothyroxine Sodium (Synthroid Tab*) 75 mcg PO DAILY@0600 [facility] Last Admin: 01/12/19 06:10 Dose: 75 mcg Magnesium Hydroxide (Milk Of Magnesia Liq*) 30 ml PO BID@0600,1800 [facility] Last Admin: 01/12/19 17:46 Dose: Not Given Ondansetron HCl (Zofran Inj*) 4 mg IV Q4H PRN PRN Reason: NAUSEA/VOMITING Last Admin: 01/02/19 12:51 Dose: 4 mg Oxycodone HCl (Roxycodone Tab*) 10 mg PO Q6H PRN PRN Reason: PAIN Last Admin: 01/12/19 18:25 Dose: 10 mg Polyethylene Glycol/Electrolytes (Miralax*) 17 gm PO 0800,2100 [facility] Last Admin: 01/12/19 07:25 Dose: Not Given Sodium Biphosphate/Sodium Phosphate (Fleet Enema*) 1 bottle [place] DAILY PRN PRN Reason: CONSTIPATION Last Admin: 01/05/19 06:24 Dose: 1 bottle Vital Signs - 8 hr 01/12/19 01/12/19 01/12/19 13:11 15:03 18:25 Temperature 97.9 F Pulse Rate 77 Respiratory 14 14 16 Rate Blood Pressure 134/58 (mmHg) O2 Sat by Pulse 99 Oximetry 01/12/19 19:40 Temperature Pulse Rate Respiratory 18 Rate Blood Pressure (mmHg) O2 Sat by Pulse Oximetry Oxygen Devices in Use Now: None Appearance: Pleasant gentleman sitting up in a recliner in NAD. Eyes: No Scleral Icterus Ears/Nose/Mouth/Throat: Mucous Membranes Moist Neck: Trachea Midline Respiratory: Symmetrical Chest Expansion and Respiratory Effort, Clear to Auscultation Cardiovascular: RRR - Normal S1 and S2 Extremities: - - Bilateral LE pitting edema, L>R. Left leg is still oozing yellow serous fluid, but not as much as yesterday, and crusty lesions are drying. Neurological: Alert and Oriented x 3, NL Muscle Strength and Tone Result Diagrams: 01/11/19 06:04 01/12/19 10:30 Assess/Plan/Problems-Billing Assessment: Mr Quinn is a 68yo M [facility] PMH of h/o DM2, CKD (baseline cr 2.3 per patient) , CAD s/p prior [place], Afib, visiting from [place], who presented to ED with c/o dyspnea and cough, admitted with skin and soft tissue infection and acute CHF exacerbation (EF 40-45% on admission, no baseline). - Patient Problems (1) Cellulitis Comment: - LLE skin breakdown suspected in setting of increased LE edema from CHF and poor wound healing in the setting of diabetes. - ID input appreciated - recommended doxicycline 100mg BID for 6 more days. - Continue PT - will increase oxycodone frequency for better pain control and increase mobility. - Wound culture no growth so far. (Sputum shows MRSA - is on precautions for this only). (2) Acute exacerbation of CHF (congestive heart failure) Comment: - Acute systolic CHF. - Echo showed EF 45-50%. - Weight down to 233 from 252 on admission. - Renal function is stable - resume Furosemide. (3) Atrial fibrillation Comment: - Continue Carvedilol and Dabigatran. (4) CKD (chronic kidney disease) Comment: - Stage 4 CKD - Complicated by NABIL in setting of sepsis secondary to cellulitis. - NABIL improving. (5) Diabetes Comment: - Chronically uncontrolled as evidenced by HbA1c 10% - Fairly controlled in the hospital - highest 188 over the last 24h. - Continue Lantus 45 units and Lispro SS. (6) DVT prophylaxis Comment: - Pradaxa. (7) DNR (do not resuscitate) Status and Disposition: Inpatient. Increase pain medication to encourage mobilization. Plan to d/c home with his daughter (lives in [place]) over the weekend.
[2019-01-12] MEDS: Insulin GLARGINE(*) 1 UNITS UNIT SUBCUT SCH (21:02)
[2019-01-13 05:44] LABS: ABS Basophils 0.1 10^3/ul (0-0.2); ABS Eosinophils 0.1 10^3/ul (0-0.6); ABS Lymphocytes 1.8 10^3/ul (1.0-4.8); ABS Monocytes 0.9 10^3/ul (0-0.8); ABS Neutrophils 9.4 10^3/ul (1.5-7.7); Eosinophil % 0.7 %; Hematocrit 33 % (42-52); Hemoglobin 10.9 g/dL (14.0-18.0); Lymphocyte % 14.4 %; Mean Corpuscular HGB Conc 33 g/dL (31-36); Mean Corpuscular Hemoglobin 30 pg (27-31); Mean Corpuscular Volume 90 fL (80-94); Nucleated Red Blood Cells % 0.1; Platelet Count 365 10^3/uL (150-450); Red Blood Count 3.64 10^6 /uL (4.18-5.48); Red Cell Distribution Width 14 % (10.5-15); White Blood Count 12.3 10^3/uL (3.5-10.8)
[2019-01-13 06:01] LABS: BUN/Creatinine Ratio 14.7 (8-20); C Reactive Protein 162.11 mg/L (<8.01); Calcium 8.4 mg/dL (8.6-10.3); Potassium 4.4 mmol/L (3.5-5.0)
[2019-01-13] MEDS: oxyCODONE TAB* 5 MG TAB PO PRN ×3 (06:05→20:40)
[2019-01-13] MEDS: Levothyroxine TAB* 75 MCG TAB PO SCH (06:05)
[2019-01-13] MEDS: Magnesium Hydroxide LIQ* 30 ML UDC PO SCH ×2 (06:06→18:08)
[2019-01-13] MEDS: Polyethylene Glycol 3350* 17 GM PACKET PO SCH ×2 (07:27→20:38)
[2019-01-13] MEDS: Insulin LISPRO* 1 UNITS UNIT SUBCUT SCH ×6 (07:27→18:10)
[2019-01-13] MEDS: DABIGATRAN 75 MG PO SCH ×2 (08:20→20:39)
[2019-01-13] MEDS: Carvedilol TAB* 3.125 MG PO SCH ×2 (08:20→20:39)
[2019-01-13] MEDS: Atorvastatin* 10 MG TAB PO SCH (08:20)
[2019-01-13] MEDS: hydrALAZINE TAB* 25 MG PO SCH ×2 (08:20→20:39)
[2019-01-13] MEDS: DOXYcycline CAP(*) 100 MG PO SCH ×2 (08:20→20:39)
--- NOTE | 2019-01-13 09:24 | PN ---
Subjective Date of Service: 01/13/19 Interval History: HOSPITALIST PROGRESS NOTE Patient seen and examined at bedside. Care reviewed and d/w Melissa Josue RN. He offers no new complaints today, but concerned with his ability to tolerated 4 -[address] to [place]. Family History: Unchanged from Admission Social History: Unchanged from Admission Past Medical History: Unchanged from Admission Objective Active Medications: Acetaminophen (Tylenol Tab*) 650 mg PO Q4H PRN PRN Reason: FEVER/PAIN Last Admin: 01/11/19 22:23 Dose: 650 mg Atorvastatin Calcium (Lipitor*) 10 mg PO DAILY [facility] Last Admin: 01/13/19 08:20 Dose: 10 mg Carvedilol (Coreg Tab*) 3.125 mg PO BID [facility] Last Admin: 01/13/19 08:20 Dose: 3.125 mg Dabigatran (Pradaxa Cap(Nf)) 75 mg PO BID [facility] Last Admin: 01/13/19 08:20 Dose: 75 mg Dextrose (D50w Syringe 50 Ml*) 12.5 gm IV PUSH .FOR FS < 60 - SS PRN PRN Reason: FS < 60 Doxycycline Hyclate (Vibramycin Cap(*)) 100 mg PO BID [facility] Last Admin: 01/13/19 08:20 Dose: 100 mg Hydralazine HCl (Apresoline Tab*) 50 mg PO BID [facility] Last Admin: 01/13/19 08:20 Dose: 50 mg Insulin Glargine (Lantus(*)) 43 units SUBCUT BEDTIME [facility] Last Admin: 01/12/19 21:02 Dose: 43 units Insulin Human Lispro (Humalog*) 0 units SUBCUT AC [facility]; Protocol Last Admin: 01/13/19 08:09 Dose: Not Given Insulin Human Lispro (Humalog*) 0 units SUBCUT AC [facility]; Protocol Last Admin: 01/13/19 07:27 Dose: Not Given Levothyroxine Sodium (Synthroid Tab*) 75 mcg PO DAILY@0600 [facility] Last Admin: 01/13/19 06:05 Dose: 75 mcg Magnesium Hydroxide (Milk Of Magnesia Liq*) 30 ml PO BID@0600,1800 [facility] Last Admin: 01/13/19 06:06 Dose: 30 ml Ondansetron HCl (Zofran Inj*) 4 mg IV Q4H PRN PRN Reason: NAUSEA/VOMITING Last Admin: 01/02/19 12:51 Dose: 4 mg Oxycodone HCl (Roxycodone Tab*) 10 mg PO Q6H PRN PRN Reason: PAIN Last Admin: 01/13/19 06:05 Dose: 10 mg Polyethylene Glycol/Electrolytes (Miralax*) 17 gm PO 0800,2100 [facility] Last Admin: 01/13/19 07:27 Dose: Not Given Sodium Biphosphate/Sodium Phosphate (Fleet Enema*) 1 bottle [place] DAILY PRN PRN Reason: CONSTIPATION Last Admin: 01/05/19 06:24 Dose: 1 bottle Vital Signs - 8 hr 01/13/19 01/13/19 01/13/19 03:43 06:05 07:50 Temperature 97.7 F 97.8 F Pulse Rate 78 86 Respiratory 16 16 20 Rate Blood Pressure 114/57 136/70 (mmHg) O2 Sat by Pulse 98 97 Oximetry 01/13/19 01/13/19 08:00 09:11 Temperature Pulse Rate Respiratory 18 18 Rate Blood Pressure (mmHg) O2 Sat by Pulse Oximetry Oxygen Devices in Use Now: None Appearance: Pleasant gentleman sitting up in a recliner in NAD. Eyes: No Scleral Icterus Ears/Nose/Mouth/Throat: Mucous Membranes Moist Neck: Trachea Midline Respiratory: Symmetrical Chest Expansion and Respiratory Effort, Clear to Auscultation Cardiovascular: RRR - Normal S1 and S2 Extremities: - - LLE edema is improving, blisters are drying, but there is still serous drainage Neurological: Alert and Oriented x 3, NL Muscle Strength and Tone Result Diagrams: 01/13/19 05:03 01/13/19 05:03 Assess/Plan/Problems-Billing Assessment: Mr Quinn is a 68yo M [facility] PMH of h/o DM2, CKD (baseline cr 2.3 per patient) , CAD s/p prior [place], Afib, visiting from [place], who presented to ED with c/o dyspnea and cough, admitted with skin and soft tissue infection and acute CHF exacerbation (EF 40-45% on admission, no baseline). - Patient Problems (1) Cellulitis Comment: - LLE skin breakdown suspected in setting of increased LE edema from CHF and poor wound healing in the setting of diabetes. - ID input appreciated - recommended doxicycline 100mg BID for 5 more days. - Continue PT - will increase oxycodone frequency for better pain control and increase mobility. - Wound culture no growth so far. (Sputum shows MRSA - is on precautions for this only). (2) Acute exacerbation of CHF (congestive heart failure) Comment: - Acute systolic CHF. - Echo showed EF 45-50%. - Weight down to 229 from 252 on admission. - Renal function is stable - continue Furosemide. (3) Atrial fibrillation Comment: - Continue Carvedilol and Dabigatran. (4) CKD (chronic kidney disease) Comment: - Stage 4 CKD - Complicated by NABIL in setting of sepsis secondary to cellulitis. - NABIL improving. (5) Diabetes Comment: - Chronically uncontrolled as evidenced by HbA1c 10% - Fairly controlled in the hospital - highest 189 over the last 24h. - Continue Lantus 45 units and Lispro SS. (6) DVT prophylaxis Comment: - Pradaxa. (7) DNR (do not resuscitate) Status and Disposition: Inpatient. Initial plan was to d/c home with his daughter (lives in [place]) over the weekend, but this may not feasible. manager clinical research to assist with probable IRENE.
[2019-01-13] MEDS: Insulin GLARGINE(*) 1 UNITS UNIT SUBCUT SCH (20:52)
[2019-01-14] MEDS: Levothyroxine TAB* 75 MCG TAB PO SCH (06:11)
[2019-01-14] MEDS: Magnesium Hydroxide LIQ* 30 ML UDC PO SCH ×2 (06:11→17:59)
[2019-01-14] MEDS: oxyCODONE TAB* 5 MG TAB PO PRN ×3 (06:14→22:17)
[2019-01-14] MEDS: Insulin LISPRO* 1 UNITS UNIT SUBCUT SCH ×7 (07:45→18:06)
[2019-01-14] MEDS: Atorvastatin* 10 MG TAB PO SCH (09:09)
[2019-01-14] MEDS: DOXYcycline CAP(*) 100 MG PO SCH ×2 (09:09→21:58)
[2019-01-14] MEDS: hydrALAZINE TAB* 25 MG PO SCH ×2 (09:09→22:04)
[2019-01-14] MEDS: DABIGATRAN 75 MG PO SCH ×2 (09:09→21:58)
[2019-01-14] MEDS: Polyethylene Glycol 3350* 17 GM PACKET PO SCH ×2 (09:10→22:04)
[2019-01-14] MEDS: Carvedilol TAB* 3.125 MG PO SCH ×2 (09:10→21:57)
--- NOTE | 2019-01-14 09:18 | PN ---
Subjective Date of Service: 01/14/19 Interval History: HOSPITALIST PROGRESS NOTE Patient seen and examined at bedside. Care reviewed and d/w Pratima Rodríguez RN. He had a little more LLE pain today when he tried to stand up before taking oxycodone, but it's better controlled now. Family History: Unchanged from Admission Social History: Unchanged from Admission Past Medical History: Unchanged from Admission Objective Active Medications: Acetaminophen (Tylenol Tab*) 650 mg PO Q4H PRN PRN Reason: FEVER/PAIN Last Admin: 01/11/19 22:23 Dose: 650 mg Atorvastatin Calcium (Lipitor*) 10 mg PO DAILY [facility] Last Admin: 01/14/19 09:09 Dose: 10 mg Carvedilol (Coreg Tab*) 3.125 mg PO BID [facility] Last Admin: 01/14/19 09:10 Dose: 3.125 mg Dabigatran (Pradaxa Cap(Nf)) 75 mg PO BID [facility] Last Admin: 01/14/19 09:09 Dose: 75 mg Dextrose (D50w Syringe 50 Ml*) 12.5 gm IV PUSH .FOR FS < 60 - SS PRN PRN Reason: FS < 60 Doxycycline Hyclate (Vibramycin Cap(*)) 100 mg PO BID [facility] Last Admin: 01/14/19 09:09 Dose: 100 mg Hydralazine HCl (Apresoline Tab*) 50 mg PO BID [facility] Last Admin: 01/14/19 09:09 Dose: 50 mg Insulin Glargine (Lantus(*)) 43 units SUBCUT BEDTIME [facility] Last Admin: 01/13/19 20:52 Dose: 43 units Insulin Human Lispro (Humalog*) 0 units SUBCUT AC [facility]; Protocol Last Admin: 01/14/19 09:10 Dose: 2 unit Insulin Human Lispro (Humalog*) 0 units SUBCUT AC [facility]; Protocol Last Admin: 01/14/19 07:45 Dose: Not Given Levothyroxine Sodium (Synthroid Tab*) 75 mcg PO DAILY@0600 [facility] Last Admin: 01/14/19 06:11 Dose: 75 mcg Magnesium Hydroxide (Milk Of Magnesia Liq*) 30 ml PO BID@0600,1800 [facility] Last Admin: 01/14/19 06:11 Dose: 30 ml Ondansetron HCl (Zofran Inj*) 4 mg IV Q4H PRN PRN Reason: NAUSEA/VOMITING Last Admin: 01/02/19 12:51 Dose: 4 mg Oxycodone HCl (Roxycodone Tab*) 10 mg PO Q6H PRN PRN Reason: PAIN Last Admin: 01/14/19 06:14 Dose: 10 mg Polyethylene Glycol/Electrolytes (Miralax*) 17 gm PO 0800,2100 [facility] Last Admin: 01/14/19 09:10 Dose: 17 gm Sodium Biphosphate/Sodium Phosphate (Fleet Enema*) 1 bottle [place] DAILY PRN PRN Reason: CONSTIPATION Last Admin: 01/05/19 06:24 Dose: 1 bottle Vital Signs - 8 hr 01/14/19 01/14/19 01/14/19 03:43 06:14 06:15 Temperature 97.6 F Pulse Rate 77 Respiratory 17 16 16 Rate Blood Pressure 131/62 (mmHg) O2 Sat by Pulse 97 Oximetry 01/14/19 01/14/19 07:42 07:53 Temperature 97.7 F Pulse Rate 80 Respiratory 14 14 Rate Blood Pressure 124/59 (mmHg) O2 Sat by Pulse 98 Oximetry Oxygen Devices in Use Now: None Appearance: Pleasant elderly gentleman sitting up in bed in NAD. Eyes: No Scleral Icterus Ears/Nose/Mouth/Throat: Mucous Membranes Moist Neck: Trachea Midline Respiratory: Symmetrical Chest Expansion and Respiratory Effort, Clear to Auscultation Cardiovascular: RRR - Normal S1 and S2 Skin: - - LLE edema with serous drainage, multiple crusted areas. Blisters are drying out. Good pulses bilaterally. Callus on left plantar area Neurological: Alert and Oriented x 3, NL Muscle Strength and Tone Result Diagrams: 01/13/19 05:03 01/13/19 05:03 Microbiology and Other Data: Assess/Plan/Problems-Billing Assessment: Mr Quinn is a 68[facility] M [facility] PMH of h/o DM2, CKD (baseline cr 2.3 per patient) , CAD s/p prior [place], Afib, visiting from [place], who presented to ED with c/o dyspnea and cough, admitted with skin and soft tissue infection and acute CHF exacerbation (EF 40-45% on admission, no baseline). - Patient Problems (1) Cellulitis Comment: - LLE skin breakdown suspected in setting of increased LE edema from CHF and poor wound healing in the setting of diabetes. - ID input appreciated - recommended doxicycline 100mg BID for 4 more days. - Continue pain management with oxycodone frequency for better pain control and increase mobility. - Wound culture showed no growth. (Sputum shows MRSA - is on precautions for this only). (2) Acute exacerbation of CHF (congestive heart failure) Comment: - Acute systolic CHF. - Echo showed EF 45-50%. - Weight down to 226 from 252 on admission. - Renal function is stable - continue Furosemide. (3) Atrial fibrillation Comment: - Continue Carvedilol and Dabigatran. (4) CKD (chronic kidney disease) Comment: - Stage 4 CKD - Complicated by NABIL in setting of sepsis secondary to cellulitis. - Creatinine stable around 2.6. (5) Diabetes Comment: - Chronically uncontrolled as evidenced by HbA1c 10% - Fairly controlled in the hospital - highest 180 over the last 24h. - Continue Lantus 45 units and Lispro SS. (6) DVT prophylaxis Comment: - Pradaxa. (7) DNR (do not resuscitate) Status and Disposition: Inpatient. Plan to discharge to [facility] when bed available.
[2019-01-14] MEDS: Insulin GLARGINE(*) 1 UNITS UNIT SUBCUT SCH (21:59)
[2019-01-15] MEDS: Magnesium Hydroxide LIQ* 30 ML UDC PO SCH ×2 (05:29→17:11)
[2019-01-15] MEDS: Levothyroxine TAB* 75 MCG TAB PO SCH (05:29)
[2019-01-15] MEDS: oxyCODONE TAB* 5 MG TAB PO PRN ×3 (05:30→21:51)
[2019-01-15] MEDS: Insulin LISPRO* 1 UNITS UNIT SUBCUT SCH ×6 (07:59→17:11)
[2019-01-15] MEDS: DABIGATRAN 75 MG PO SCH ×2 (09:39→20:30)
[2019-01-15] MEDS: hydrALAZINE TAB* 25 MG PO SCH ×2 (09:40→20:31)
[2019-01-15] MEDS: Carvedilol TAB* 3.125 MG PO SCH ×2 (09:41→20:29)
[2019-01-15] MEDS: Atorvastatin* 10 MG TAB PO SCH (09:41)
[2019-01-15] MEDS: DOXYcycline CAP(*) 100 MG PO SCH ×2 (09:41→20:30)
[2019-01-15] MEDS: Polyethylene Glycol 3350* 17 GM PACKET PO SCH ×2 (09:41→20:31)
--- NOTE | 2019-01-15 18:37 | PN ---
Subjective Date of Service: 01/15/19 Interval History: Patient seen and examined. Very concerned about his leg and ongoing wound care. Does not think he's making progress. Examined with Debbie Denton NP (ID and Wound Care). Patient denies any fever fatigue or chills. No SOB, no chest pain. Family History: Unchanged from Admission Social History: Unchanged from Admission Past Medical History: Unchanged from Admission Objective Active Medications: Acetaminophen (Tylenol Tab*) 650 mg PO Q4H PRN PRN Reason: FEVER/PAIN Last Admin: 01/11/19 22:23 Dose: 650 mg Atorvastatin Calcium (Lipitor*) 10 mg PO DAILY [facility] Last Admin: 01/15/19 09:41 Dose: 10 mg Carvedilol (Coreg Tab*) 3.125 mg PO BID [facility] Last Admin: 01/15/19 09:41 Dose: 3.125 mg Dabigatran (Pradaxa Cap(Nf)) 75 mg PO BID [facility] Last Admin: 01/15/19 09:39 Dose: 75 mg Dextrose (D50w Syringe 50 Ml*) 12.5 gm IV PUSH .FOR FS < 60 - SS PRN PRN Reason: FS < 60 Doxycycline Hyclate (Vibramycin Cap(*)) 100 mg PO BID [facility] Last Admin: 01/15/19 09:41 Dose: 100 mg Hydralazine HCl (Apresoline Tab*) 50 mg PO BID [facility] Last Admin: 01/15/19 09:40 Dose: 50 mg Insulin Glargine (Lantus(*)) 43 units SUBCUT BEDTIME [facility] Last Admin: 01/14/19 21:59 Dose: 43 units Insulin Human Lispro (Humalog*) 0 units SUBCUT AC [facility]; Protocol Last Admin: 01/15/19 17:11 Dose: 3 units Levothyroxine Sodium (Synthroid Tab*) 75 mcg PO DAILY@0600 [facility] Last Admin: 01/15/19 05:29 Dose: 75 mcg Magnesium Hydroxide (Milk Of Magnesia Liq*) 30 ml PO BID@0600,1800 [facility] Last Admin: 01/15/19 17:11 Dose: 30 ml Ondansetron HCl (Zofran Inj*) 4 mg IV Q4H PRN PRN Reason: NAUSEA/VOMITING Last Admin: 01/02/19 12:51 Dose: 4 mg Oxycodone HCl (Roxycodone Tab*) 10 mg PO Q6H PRN PRN Reason: PAIN Last Admin: 01/15/19 12:11 Dose: 10 mg Polyethylene Glycol/Electrolytes (Miralax*) 17 gm PO 0800,2100 [facility] Last Admin: 01/15/19 09:41 Dose: Not Given Sodium Biphosphate/Sodium Phosphate (Fleet Enema*) 1 bottle [place] DAILY PRN PRN Reason: CONSTIPATION Last Admin: 01/05/19 06:24 Dose: 1 bottle Vital Signs - 8 hr 01/15/19 01/15/19 01/15/19 12:11 14:30 16:45 Temperature 97.5 F Pulse Rate 77 Respiratory 16 14 16 Rate Blood Pressure 121/64 (mmHg) O2 Sat by Pulse 98 Oximetry Oxygen Devices in Use Now: None Appearance: alert, NAD Eyes: No Scleral Icterus, PERRLA Ears/Nose/Mouth/Throat: NL Teeth, Lips, Gums, Mucous Membranes Moist Neck: NL Appearance and Movements; NL JVP, Trachea Midline Respiratory: Symmetrical Chest Expansion and Respiratory Effort, Clear to Auscultation Cardiovascular: NL Sounds; No Murmurs; No JVD, RRR Abdominal: NL Sounds; No Tenderness; No Distention Skin: - - LLE cellulitis with areas of open wounds on posterior calf, draining, large areas of dark crusting with yi and black slough Neurological: Alert and Oriented x 3 Nutrition: Taking PO's Result Diagrams: 01/13/19 05:03 01/13/19 05:03 Microbiology and Other Data: Assess/Plan/Problems-Billing Assessment: Mr Quinn is a 68yo M [facility] PMH of h/o DM2, CKD (baseline cr 2.3 per patient) , CAD s/p prior [place], Afib, visiting from [place], who presented to ED with c/o dyspnea and cough, admitted with skin and soft tissue infection and acute CHF exacerbation (EF 40-45% on admission, no baseline). - Patient Problems (1) Cellulitis Code(s): L03.90 - CELLULITIS, UNSPECIFIED SNOMED Code(s): 749049772 Comment: - LLE skin breakdown suspected in setting of increased LE edema from CHF and poor wound healing in the setting of diabetes. - See wound care notes for detailed recommendations - ID following - continue docycycline 100mg BID for 3 more days. - Continue pain management with oxycodone - Wound culture showed no growth - Re-eval with PT (2) Acute exacerbation of CHF (congestive heart failure) Code(s): I50.9 - HEART FAILURE, UNSPECIFIED SNOMED Code(s): 964188778 Comment: - Acute systolic CHF, no comparison ECHO - Echo showed EF 45-50%. - Weight down to 226 from 252 on admission. - Renal function is stable - continue Furosemide. (3) Atrial fibrillation Code(s): I48.91 - UNSPECIFIED ATRIAL FIBRILLATION SNOMED Code(s): 75849690 Comment: - Continue Carvedilol and Dabigatran. (4) CKD (chronic kidney disease) Code(s): N18.9 - CHRONIC KIDNEY DISEASE, UNSPECIFIED SNOMED Code(s): 827186806 Comment: - Stage 4 CKD - Complicated by NABIL in setting of sepsis secondary to cellulitis. - Creatinine stable around 2.6. (5) Diabetes Code(s): E11.9 - TYPE 2 DIABETES MELLITUS WITHOUT COMPLICATIONS SNOMED Code(s) : 84273895 Comment: - Poor control with HbA1c 10 - Continue Lantus 45 units and Lispro SS, stable (6) Pneumonia Code(s): J18.9 - PNEUMONIA, UNSPECIFIED ORGANISM SNOMED Code(s): 912600432 Comment: - At admission, resolved (7) DVT prophylaxis Code(s): Z29.9 - ENCOUNTER FOR PROPHYLACTIC MEASURES, UNSPECIFIED SNOMED Code( s): 002632915 Comment: - Pradaxa. (8) DNR (do not resuscitate) Status and Disposition: Inpatient. Re-eval with PT, currently does not meet for IRENE. Likely DC Tuesday.
[2019-01-15] MEDS: Insulin GLARGINE(*) 1 UNITS UNIT SUBCUT SCH (21:28)
[2019-01-16] MEDS: Magnesium Hydroxide LIQ* 30 ML UDC PO SCH ×2 (05:10→16:39)
[2019-01-16] MEDS: Levothyroxine TAB* 75 MCG TAB PO SCH (05:10)
[2019-01-16] MEDS: Insulin LISPRO* 1 UNITS UNIT SUBCUT SCH ×3 (08:15→16:42)
[2019-01-16] MEDS: DOXYcycline CAP(*) 100 MG PO SCH ×2 (09:34→20:03)
[2019-01-16] MEDS: Atorvastatin* 10 MG TAB PO SCH (09:34)
[2019-01-16] MEDS: DABIGATRAN 75 MG PO SCH ×2 (09:35→20:03)
[2019-01-16] MEDS: hydrALAZINE TAB* 25 MG PO SCH ×2 (09:35→20:03)
[2019-01-16] MEDS: Carvedilol TAB* 3.125 MG PO SCH ×2 (09:35→20:02)
[2019-01-16] MEDS: oxyCODONE TAB* 5 MG TAB PO PRN ×3 (09:36→22:39)
[2019-01-16] MEDS: Polyethylene Glycol 3350* 17 GM PACKET PO SCH ×2 (09:45→20:04)
--- NOTE | 2019-01-16 16:20 | PN ---
Subjective Date of Service: 01/16/19 Interval History: Mr. Quinn is a 68 yo male with PMH significant for afib, CKD, CAD, HTN, HLD , hypothyroidism, and DM2 who presented to the emergency room with complaints of cough and shortness of breath. He was found to have left LE cellulitis, and an open wound to the back of his left calf at the time of admission. Denies fever or chills. Continues to have pain in the left LE with ambulation. Patient seen and examined at bedside. Family History: Unchanged from Admission Social History: Unchanged from Admission Past Medical History: Unchanged from Admission Objective Active Medications: Acetaminophen (Tylenol Tab*) 650 mg PO Q4H PRN Reason: FEVER/PAIN Atorvastatin Calcium (Lipitor*) 10 mg PO DAILY [facility] Carvedilol (Coreg Tab*) 3.125 mg PO BID [facility] Dabigatran (Pradaxa Cap(Nf)) 75 mg PO BID [facility] Dextrose (D50w Syringe 50 Ml*) 12.5 gm IV PUSH .FOR FS < 60 - SS PRN Reason: FS < 60 Doxycycline Hyclate (Vibramycin Cap(*)) 100 mg PO BID [facility] Hydralazine HCl (Apresoline Tab*) 50 mg PO BID [facility] Insulin Glargine (Lantus(*)) 43 units SUBCUT BEDTIME [facility] Insulin Human Lispro (Humalog*) 0 units SUBCUT AC [facility]; Protocol Levothyroxine Sodium (Synthroid Tab*) 75 mcg PO DAILY@0600 [facility] Magnesium Hydroxide (Milk Of Magnesia Liq*) 30 ml PO BID@0600,1800 [facility] Ondansetron HCl (Zofran Inj*) 4 mg IV Q4H PRN Reason: NAUSEA/VOMITING Oxycodone HCl (Roxycodone Tab*) 10 mg PO Q6H PRN Reason: PAIN Polyethylene Glycol/Electrolytes (Miralax*) 17 gm PO 0800,2100 [facility] Sodium Biphosphate/Sodium Phosphate (Fleet Enema*) 1 bottle [place] DAILY PRN Reason : CONSTIPATION Vital Signs 01/16/19 07:55 Temperature 97.8 F Temperature Temporal Artery Source Scan Pulse Rate 66 Respiratory 16 Rate Blood Pressure 127/67 (mmHg) Blood Pressure 87 Mean O2 Sat by Pulse 98 Oximetry Patient on Room Yes Air Oxygen Devices in Use Now: None Appearance: NAD, sitting up in a chair Ears/Nose/Mouth/Throat: Mucous Membranes Moist Respiratory: Symmetrical Chest Expansion and Respiratory Effort Extremities: - - Bilateral LE edema. Weak DP pulse on the left. Skin: - - See skin documentation below Neurological: Alert and Oriented x 3, NL Muscle Strength and Tone Nutrition: Taking PO's Result Diagrams: 01/13/19 05:03 01/13/19 05:03 Skin Deviation Note - Skin Deviation Findings Left lateral LE - Area involved is from below the knee to above the ankle. There is dry yellow crusting near the ankle. Left medial lower leg - Intact skin, with some skin peeling. Left posterior lower leg - There is macerated skin that is peeling, some of the peeling skin is black eschar. There is a significant amount of serous drainage from the leg. There are superficial open areas to posterior calf. Wound #1 measuring 2.4 cm x 2.2 cm x 0.1 cm. The wound base is pink granulation tissue. Wound #2 measures, 3 cm x 1.8 cm x 0.1 cm. The wound base is pink granulation tissue. The surrounding skin is intact and intact, with as above peeling skin. Not pictured: There is a small scabbed area to the right medial ankle. Assessment/Plan: Mr. Quinn is a 68 yo male with PMH significant for afib, CKD, CAD, HTN, HLD , hypothyroidism, and DM2 who presented to the emergency room with complaints of cough and shortness of breath. He was found to have left LE cellulitis, and an open wound to the back of his left calf. The left lower leg has become macerated with peeling skin over the course of the week. 1. Left LE with multiple superficial wound. Initial open area to the posterior calf was secondary to trauma to the leg, suspect this was a skin tear. The leg had become macerated after a Vaseline gauze dressing was placed to the leg. Recommend washing the leg with soap and water once daily to BID, leaving the left leg open to air, do not apply a dressing. If he needs to travel a dry dressing can be applied for travel, but should be changed when wet as needed. Recommend applying lotion to the intact and dry skin. Consider ABIs to evaluate circulation in the leg. Can consider a wound clinic consult on discharge. 2. Left LE cellulitis. Cellulitis is resolving. Continue to treat cellulitis according to primary team/ID. 3. Diabetes Mellitus, type 2. HgA1C 10. Maintain good glycemic control to allow for wound healing. 4. Diet. Consistent Carbohydrate. 5. Code Status. Full Code status. 6. Disposition. Inpatient, disposition per primary medicine team. TIME SPENT: Time for this wound consultation was 20 minutes and 10 minutes was spent with the patient discussing wound care; assessing, measuring and photographing the wound. Wound Problem/Plan Is Patient a Wound Clinic Patient: No Attending: Wendy Kimble
--- NOTE | 2019-01-16 17:53 | PN ---
Subjective Date of Service: 01/16/19 Interval History: Patient seen and examined. No acute overnight events. Patient states pain in his LLE is more intense with ambulation, which is currently difficult for him. Denies acute SOB, no chest pain, no fevers or chills. Family History: Unchanged from Admission Social History: Unchanged from Admission Past Medical History: Unchanged from Admission Objective Active Medications: Acetaminophen (Tylenol Tab*) 650 mg PO Q4H PRN PRN Reason: FEVER/PAIN Last Admin: 01/11/19 22:23 Dose: 650 mg Atorvastatin Calcium (Lipitor*) 10 mg PO DAILY [facility] Last Admin: 01/16/19 09:34 Dose: 10 mg Carvedilol (Coreg Tab*) 3.125 mg PO BID [facility] Last Admin: 01/16/19 09:35 Dose: 3.125 mg Dabigatran (Pradaxa Cap(Nf)) 75 mg PO BID [facility] Last Admin: 01/16/19 09:35 Dose: 75 mg Dextrose (D50w Syringe 50 Ml*) 12.5 gm IV PUSH .FOR FS < 60 - SS PRN PRN Reason: FS < 60 Doxycycline Hyclate (Vibramycin Cap(*)) 100 mg PO BID [facility] Last Admin: 01/16/19 09:34 Dose: 100 mg Hydralazine HCl (Apresoline Tab*) 50 mg PO BID [facility] Last Admin: 01/16/19 09:35 Dose: 50 mg Insulin Glargine (Lantus(*)) 43 units SUBCUT BEDTIME [facility] Last Admin: 01/15/19 21:28 Dose: 43 units Insulin Human Lispro (Humalog*) 0 units SUBCUT AC [facility]; Protocol Last Admin: 01/16/19 16:42 Dose: Not Given Levothyroxine Sodium (Synthroid Tab*) 75 mcg PO DAILY@0600 [facility] Last Admin: 01/16/19 05:10 Dose: 75 mcg Magnesium Hydroxide (Milk Of Magnesia Liq*) 30 ml PO BID@0600,1800 [facility] Last Admin: 01/16/19 16:39 Dose: 30 ml Ondansetron HCl (Zofran Inj*) 4 mg IV Q4H PRN PRN Reason: NAUSEA/VOMITING Last Admin: 01/02/19 12:51 Dose: 4 mg Oxycodone HCl (Roxycodone Tab*) 10 mg PO Q6H PRN PRN Reason: PAIN Last Admin: 01/16/19 16:40 Dose: 10 mg Polyethylene Glycol/Electrolytes (Miralax*) 17 gm PO 0800,2100 [facility] Last Admin: 01/16/19 09:45 Dose: Not Given Sodium Biphosphate/Sodium Phosphate (Fleet Enema*) 1 bottle [place] DAILY PRN PRN Reason: CONSTIPATION Last Admin: 01/05/19 06:24 Dose: 1 bottle Vital Signs - 8 hr 01/16/19 01/16/19 12:10 16:40 Respiratory 18 16 Rate Oxygen Devices in Use Now: None Appearance: alert, NAD Eyes: No Scleral Icterus, PERRLA Ears/Nose/Mouth/Throat: NL Teeth, Lips, Gums, Mucous Membranes Moist Neck: NL Appearance and Movements; NL JVP, Trachea Midline Respiratory: Symmetrical Chest Expansion and Respiratory Effort, Clear to Auscultation Cardiovascular: NL Sounds; No Murmurs; No JVD, RRR, No Edema Abdominal: NL Sounds; No Tenderness; No Distention Extremities: No Edema, No Clubbing, Cyanosis Skin: - - cellulitis with circumferential desquamation of left calf, crusting, erythema and weeping with multiple open areas with dry and necrotic flaking tissue Neurological: Alert and Oriented x 3 Nutrition: Taking PO's Result Diagrams: 01/13/19 05:03 01/13/19 05:03 Microbiology and Other Data: Assess/Plan/Problems-Billing Assessment: Mr Quinn is a 68yo M [facility] PMH of h/o DM2, CKD (baseline cr 2.3 per patient) , CAD s/p prior [place], Afib, visiting from [place], who presented to ED with c/o dyspnea and cough, admitted with skin and soft tissue infection and acute CHF exacerbation (EF 40-45% on admission, no baseline). - Patient Problems (1) Cellulitis Code(s): L03.90 - CELLULITIS, UNSPECIFIED SNOMED Code(s): 676675010 Comment: - LLE skin breakdown suspected in setting of increased LE edema from CHF and poor wound healing in the setting of diabetes. - See wound care notes for detailed recommendations - ID following - continue docycycline 100mg BID for 2 more days. - Continue pain management with oxycodone - Wound culture showed no growth - Re-eval with PT recommends STR (2) Acute exacerbation of CHF (congestive heart failure) Code(s): I50.9 - HEART FAILURE, UNSPECIFIED SNOMED Code(s): 388865497 Comment: - Acute systolic CHF, no comparison ECHO - Echo showed EF 45-50%. - Weight down to 224 from 252 on admission. - Renal function is stable - continue Furosemide. (3) Atrial fibrillation Code(s): I48.91 - UNSPECIFIED ATRIAL FIBRILLATION SNOMED Code(s): 69820931 Comment: - Continue Carvedilol and Dabigatran. (4) CKD (chronic kidney disease) Code(s): N18.9 - CHRONIC KIDNEY DISEASE, UNSPECIFIED SNOMED Code(s): 828261562 Comment: - Stage 4 CKD - Complicated by NABIL in setting of sepsis secondary to cellulitis. - Creatinine stable around 2.6 - Recheck labs in AM (5) Diabetes Code(s): E11.9 - TYPE 2 DIABETES MELLITUS WITHOUT COMPLICATIONS SNOMED Code(s) : 52262702 Comment: - Poor control with HbA1c 10 - Continue Lantus 45 units and Lispro SS, stable last 3 days with improved control (6) Pneumonia Code(s): J18.9 - PNEUMONIA, UNSPECIFIED ORGANISM SNOMED Code(s): 922520390 Comment: - At admission, resolved (7) DVT prophylaxis Code(s): Z29.9 - ENCOUNTER FOR PROPHYLACTIC MEASURES, UNSPECIFIED SNOMED Code( s): 138815905 Comment: - Pradaxa. (8) DNR (do not resuscitate) Status and Disposition: Inpatient. Referral for STR based on new PT eval.
[2019-01-16] MEDS: Insulin GLARGINE(*) 1 UNITS UNIT SUBCUT SCH (20:20)
[2019-01-17] MEDS: Magnesium Hydroxide LIQ* 30 ML UDC PO SCH (05:46)
[2019-01-17] MEDS: Levothyroxine TAB* 75 MCG TAB PO SCH (05:46)
[2019-01-17] MEDS: Insulin LISPRO* 1 UNITS UNIT SUBCUT SCH ×2 (07:45→12:08)
[2019-01-17] MEDS: Polyethylene Glycol 3350* 17 GM PACKET PO SCH (07:46)
[2019-01-17 09:17] VITALS: BP 128/61
[2019-01-17] MEDS: DABIGATRAN 75 MG PO SCH (09:17)
[2019-01-17] MEDS: hydrALAZINE TAB* 25 MG PO SCH (09:18)
[2019-01-17] MEDS: DOXYcycline CAP(*) 100 MG PO SCH (09:18)
[2019-01-17] MEDS: oxyCODONE TAB* 5 MG TAB PO PRN (09:18)
[2019-01-17] MEDS: Carvedilol TAB* 3.125 MG PO SCH (09:19)
[2019-01-17] MEDS: Atorvastatin* 10 MG TAB PO SCH (09:19)
--- NOTE | 2019-01-17 13:26 | DS ---
CC: Dr. Zamudio, [place], [place] * DISCHARGE SUMMARY: DATE OF ADMISSION: 01/01/19 DATE OF DISCHARGE: 01/17/19 PRIMARY CARE PROVIDER: Dr. Zamudio in [place], [place]. ATTENDING PHYSICIAN: Dr. Villagran * (dictated by DEBBIE Roper). PRIMARY DIAGNOSES: 1. Cellulitis, left lower extremity. 2. Acute on chronic congestive heart failure exacerbation. SECONDARY DIAGNOSES: 1. Diabetes mellitus. 2. Chronic kidney disease. 3. Atrial fibrillation, on anticoagulation. 4. Coronary artery disease - history of myocardial infarction. 5. Hypertension. 6. Hyperlipidemia. 7. Hypothyroidism. STUDIES WHILE IN THE HOSPITAL: Venous Doppler ultrasound, 01/01/19: No DVT. Transthoracic echo, 01/01/19: Systolic function mildly reduced with EF of 45% to 50%. Nuc med V/Q scan negative for pulmonary perfusion defects. DISCHARGE MEDICATIONS: Home medications: 1. Acetaminophen 650 mg p.o. q.4 hours p.r.n. 2. Carvedilol 3.125 mg 1 tab p.o. b.i.d. 3. Clonidine 0.1 mg 1 tab p.o. t.i.d. 4. Dabigatran 75 mg p.o. daily. 5. Hydralazine 50 mg 1 tab p.o. b.i.d. 6. Insulin regular 1 unit subcu t.i.d. 7. Levothyroxine 75 mcg 1 tab p.o. daily. 8. Novolin N sliding scale b.i.d. 9. Simvastatin 20 mg p.o. daily. 10. Coenzyme Q10 200 mg 1 tab p.o. daily. New home medications: 1. Doxycycline 100 mg p.o. b.i.d. x2 days. 2. Furosemide 20 mg p.o. daily. 3. Oxycodone 10 mg p.o. q.6 hours p.r.n., maximum daily dose 4. HISTORY OF PRESENT ILLNESS/HOSPITAL COURSE: Mr. Quinn is a 68-year-old male with a past medical history of atrial fibrillation, CKD, diabetes, who presented to the ER from [place] with complaints of cough and shortness of breath. He notes that he is visiting from [place] with his and has been driving. He has complained of productive cough that has been worsening as well as worsening shortness of breath. He also complains of left lower extremity swelling and redness x2 days. The patient was admitted to the hospital. He received a workup, which included transthoracic echocardiogram, which revealed a mild systolic dysfunction with ejection fraction 45% to 50%. Lower extremity was negative for DVT. Lung V/Q scan negative for PE. The patient had cough and CT from [place] was concerning for right upper lobe infiltrate. He was placed on antibiotics and finished the treatment course. He was also treated for CHF exacerbation. The patient was noted to have cellulitis of the left lower extremity with some skin breakdown. It was likely multifactorial in the setting of increased lower extremity edema due to acute exacerbation of CHF as well as poor wound healing in the setting of diabetes. The patient was started on clindamycin and continued throughout his hospital course. He had a wound culture that showed no growth. Acute exacerbation of CHF was treated with diuresis with Lasix. At the end of the patient's stay, he had approximately 25-pound weight loss. It is likely that the patient had an exacerbation of CHF due to travel. Wound consult was ordered for the left lower extremity cellulitis and recommendations were made for the care of the wound (see below). At the time of discharge, the patient denies chest pain, shortness of breath, abdominal pain, nausea, vomiting, diarrhea, constipation. He denies pain in the right lower extremity. He does continue to have left lower extremity pain, although he notes that this is improving. He denies fever or cough. Mr. Quinn is stable for discharge to [facility]. PHYSICAL EXAMINATION: Vital signs are temperature 97.6 temporal, heart rate 75 , respiratory rate 16, oxygen saturation 99% on room air, blood pressure 128/ 61. General: Mr. Quinn is a well-developed, well-nourished, obese 68-year- old white male, who is sitting in a chair with the lower extremities elevated. He appears to be in no acute distress. HEENT: PERRL. Extraocular movements intact. No scleral icterus. Hearing grossly intact. Oral mucous membranes moist without lesions. Pharynx is clear. Cardiovascular: Regular rate and rhythm with S1, S2 present without murmurs, rubs, or gallops. There is no JVD. Respiratory: Symmetrical chest expansion without use of accessory muscles. Lungs are clear to auscultation bilaterally without rhonchi, wheezes, or rales. Abdomen: Bowel sounds noted in all quadrants. The abdomen is soft. There is no tenderness to palpation. Extremities: Upper extremity: Skin warm and smooth bilaterally. There is no clubbing or cyanosis. Right lower extremity with chronic skin changes. Skin is intact. Left lower extremity without erythema. There is crusting and a small amount of weeping of the left lower extremity. It is nontender to palpation. Skin appears to be flaking off. Flaking skin is necrotic appearing. Neuro: The patient is awake. He is alert and oriented x3. He is able to move all of his extremities. DISCHARGE PLAN: Mr. Quinn will be discharged to [facility]. CONDITION: Fair. DIET: Heart-healthy, ADA/diabetic. ACTIVITY: As tolerated. MEDICATIONS: 1. Continue doxycycline twice a day for 2 days. 2. Continue oxycodone pain medications as needed for 5 days. 3. Start Lasix 20 mg p.o. daily. FOLLOWUP: Follow up with primary care provider in 4 to 7 days. EDUCATION: Recheck BMP in 1 week to monitor kidney function, electrolytes with continued use of Lasix. Wound care: Recommend washing the leg with soap and water 1 to 2 times daily, leave leg open to air, do not apply dressing. If the patient needs to travel, dry dressing can be applied for travel, but should be changed when wet as needed. Recommend applying lotion to intact and dry skin. Return to the ER or nearest hospital if you experience any worsening of symptoms , shortness of breath, chest discomfort, high fevers, chills, night sweats, dizziness, lightheadedness, loss of consciousness, or any other worrisome signs or symptoms. This is a summarized report of a complex medical history and hospital stay. For further details, please see the entire medical record. TIME SPENT: Approximately 35 minutes was spent on this discharge, greater than half that time was spent [id number] with the patient discussing discharge plans and instructions. DEBBIE RM [id number]/[facility] #: [id number] NADIA
== END 2019-01-17 14:01 | DRG 871 ==
LOC: ED 20:07 → MEDTELE 22:10
PROVIDERS: ADMIT Pediatrics; ATTEND Internal Medicine
DX: A41.9 Sepsis, unspecified organism (principal); I50.23 Acute on chronic systolic (congestive) heart failure; J18.1 Lobar pneumonia, unspecified organism; I13.0 Hypertensive heart and chronic kidney disease with heart failure and stage 1 through stage 4 chronic kidney disease, or unspecified chronic kidney disease; L03.116 Cellulitis of left lower limb; N17.9 Acute kidney failure, unspecified; N18.4 Chronic kidney disease, stage 4 (severe); I48.91 Unspecified atrial fibrillation; Z66 Do not resuscitate; K59.00 Constipation, unspecified; S81.802A Unspecified open wound, left lower leg, initial encounter; I87.8 Other specified disorders of veins; E11.42 Type 2 diabetes mellitus with diabetic polyneuropathy; B96.89 Other specified bacterial agents as the cause of diseases classified elsewhere; E11.22 Type 2 diabetes mellitus with diabetic chronic kidney disease; I25.10 Atherosclerotic heart disease of native coronary artery without angina pectoris; S80.922A Unspecified superficial injury of left lower leg, initial encounter; E78.5 Hyperlipidemia, unspecified; E03.9 Hypothyroidism, unspecified; E66.01 Morbid (severe) obesity due to excess calories; I25.2 Old myocardial infarction; Z87.891 Personal history of nicotine dependence; Z72.89 Other problems related to lifestyle; Z68.30 Body mass index [BMI] 30.0-30.9, adult; Z89.412 Acquired absence of left great toe; Z56.0 Unemployment, unspecified
CPT/HCPCS: 36415; 71045; 74019; 74176; 78582; 80048; 80061; 80202; 82803; 82947; 83036; 83605; 83735; 84443; 84484; 85025; 85027; 85730; 86140; 87040; 87070; 87077; 87186; 87205; 93005; 93306; 99284; A9270-GY; A9540; A9558; C8929; G8978-GP-CI; G8978-GP-CJ; G8979-GP-CI; G8980-GP-CI; J0456; J0696; J1644; J1940; J2405; J3370; J3475